=== PATIENT | male | born 1960 | race Caucasian/White ===

== ENCOUNTER → 2023-09-26 08:05 | Outpatient (REF) | payer MEDICARE, MEDICAID, SELFPAY | LOC: HWRAD 08:05 | PROVIDERS: ATTENDING PHYSICIAN Internal Medicine | DX: R68.84 Jaw pain (principal); Z92.29 Personal history of other drug therapy; M81.0 Age-related osteoporosis without current pathological fracture | CPT/HCPCS: 70486 ==

== ENCOUNTER → 2023-10-13 13:48 | Outpatient (REF) | payer MEDICARE, MEDICAID, SELFPAY ==
[2023-10-13 14:11] LABS: % Basophils 1.1 % (0-2); % Eosinophils 0.6 % (0-6); % Immature Granulocytes 0.5 % (0-0.5); % Lymphocytes 20.2 % (20.5-51.1); % Monocytes 8.7 % (1.7-9.3); % Neutrophils 68.9 % (42.2-75.2); Absolute Basophils 0.1 10^3/uL (0-0.2); Absolute Lymphocytes 1.3 10^3/uL (1.2-3.4); Absolute Monocytes 0.6 10^3/uL (0.1-0.6); Absolute Neutrophils 4.5 10^3/uL (1.4-6.5); Hematocrit 35.3 % (39.0-52.0); Hemoglobin 11.4 g/dL (13.0-18.0); Mean Corp Hgb Conc. 32.3 g/dL (33.0-37.0); Mean Corpuscular Hgb 27.8 pg (27.0-31.0); Mean Corpuscular Volume 86.1 fL (80.0-94.0); Mean Platelet Volume 9.3 fL (7.4-10.4); Nucleated Red Blood Cells % 0 % (-); Platelet Count 182 10^3/uL (130-400); Red Cell Dist. Width 14.5 % (11.5-14.5); White Blood Cell Count 6.6 10^3/uL (4.8-10.8)
== END ==
LOC: REG 13:48
PROVIDERS: ATTENDING PHYSICIAN Psychiatry & Neurology Psychiatry; FAMILY PHYSICIAN Internal Medicine
DX: Z79.899 Other long term (current) drug therapy (principal); F20.9 Schizophrenia, unspecified
CPT/HCPCS: 36415; 85025

== ENCOUNTER → 2023-11-18 15:25 | Outpatient (REF) | payer MEDICARE, MEDICAID, SELFPAY ==
[2023-11-18 16:56] LABS: % Basophils 1.3 % (0-2); % Eosinophils 1.2 % (0-6); % Immature Granulocytes 0.3 % (0-0.5); % Lymphocytes 24.5 % (20.5-51.1); % Monocytes 6.2 % (1.7-9.3); % Neutrophils 66.5 % (42.2-75.2); Absolute Basophils 0.1 10^3/uL (0-0.2); Absolute Eosinophils 0.1 10^3/uL (0-0.7); Absolute Lymphocytes 1.5 10^3/uL (1.2-3.4); Absolute Monocytes 0.4 10^3/uL (0.1-0.6); Hematocrit 37.4 % (39.0-52.0); Hemoglobin 12.1 g/dL (13.0-18.0); Mean Corp Hgb Conc. 32.4 g/dL (33.0-37.0); Mean Corpuscular Hgb 27.5 pg (27.0-31.0); Mean Platelet Volume 10.1 fL (7.4-10.4); Nucleated Red Blood Cells % 0 % (-); Platelet Count 225 10^3/uL (130-400); Red Cell Dist. Width 13.9 % (11.5-14.5)
== END ==
LOC: REG 15:25
PROVIDERS: ATTENDING PHYSICIAN Psychiatry & Neurology Psychiatry; FAMILY PHYSICIAN Internal Medicine
DX: F20.9 Schizophrenia, unspecified (principal); Z79.899 Other long term (current) drug therapy
CPT/HCPCS: 36415; 85025

== ENCOUNTER → 2023-12-15 15:30 | Outpatient (REF) | payer MEDICARE, MEDICAID, SELFPAY ==
[2023-12-15 15:53] LABS: % Basophils 1.2 % (0-2); % Eosinophils 1.3 % (0-6); % Immature Granulocytes 0.4 % (0-0.5); % Lymphocytes 25.2 % (20.5-51.1); % Monocytes 6.2 % (1.7-9.3); % Neutrophils 65.7 % (42.2-75.2); Absolute Basophils 0.1 10^3/uL (0-0.2); Absolute Eosinophils 0.1 10^3/uL (0-0.7); Absolute Lymphocytes 1.7 10^3/uL (1.2-3.4); Absolute Monocytes 0.4 10^3/uL (0.1-0.6); Absolute Neutrophils 4.5 10^3/uL (1.4-6.5); Hematocrit 37.6 % (39.0-52.0); Hemoglobin 12.5 g/dL (13.0-18.0); Mean Corp Hgb Conc. 33.2 g/dL (33.0-37.0); Mean Corpuscular Hgb 27.2 pg (27.0-31.0); Mean Corpuscular Volume 81.9 fL (80.0-94.0); Mean Platelet Volume 9.7 fL (7.4-10.4); Nucleated Red Blood Cells % 0 % (-); Platelet Count 239 10^3/uL (130-400); Red Blood Cell Count 4.59 10^6/uL (4.70-6.10); Red Cell Dist. Width 14.5 % (11.5-14.5); White Blood Cell Count 6.8 10^3/uL (4.8-10.8)
== END ==
LOC: REG 15:30
PROVIDERS: ATTENDING PHYSICIAN Psychiatry & Neurology Psychiatry; FAMILY PHYSICIAN Internal Medicine
DX: F20.9 Schizophrenia, unspecified (principal); Z79.899 Other long term (current) drug therapy
CPT/HCPCS: 36415; 85025

== ENCOUNTER → 2024-01-10 15:04 | Outpatient (REF) | payer MEDICARE, MEDICAID, SELFPAY ==
[2024-01-10 16:30] LABS: % Eosinophils 1.1 % (0-6); % Immature Granulocytes 0.3 % (0-0.5); % Lymphocytes 20.9 % (20.5-51.1); % Monocytes 6.7 % (1.7-9.3); Absolute Basophils 0.1 10^3/uL (0-0.2); Absolute Eosinophils 0.1 10^3/uL (0-0.7); Absolute Lymphocytes 1.5 10^3/uL (1.2-3.4); Absolute Monocytes 0.5 10^3/uL (0.1-0.6); Absolute Neutrophils 4.9 10^3/uL (1.4-6.5); Hematocrit 37.8 % (39.0-52.0); Hemoglobin 11.8 g/dL (13.0-18.0); Mean Corp Hgb Conc. 31.2 g/dL (33.0-37.0); Mean Corpuscular Volume 86.5 fL (80.0-94.0); Mean Platelet Volume 9.8 fL (7.4-10.4); Nucleated Red Blood Cells % 0 % (-); Platelet Count 280 10^3/uL (130-400); Red Blood Cell Count 4.37 10^6/uL (4.70-6.10); Red Cell Dist. Width 15.6 % (11.5-14.5)
== END ==
LOC: REG 15:04
PROVIDERS: ATTENDING PHYSICIAN Psychiatry & Neurology Psychiatry; FAMILY PHYSICIAN Internal Medicine
DX: F20.9 Schizophrenia, unspecified (principal); Z79.899 Other long term (current) drug therapy
CPT/HCPCS: 36415; 85025

== ENCOUNTER → 2024-02-14 06:57 | Outpatient (REF) | payer MEDICARE, MEDICAID, SELFPAY ==
[2024-02-14 07:40] LABS: % Basophils 0.9 % (0-2); % Eosinophils 1.9 % (0-6); % Immature Granulocytes 0.5 % (0-0.5); % Lymphocytes 21.7 % (20.5-51.1); Absolute Basophils 0.1 10^3/uL (0-0.2); Absolute Eosinophils 0.2 10^3/uL (0-0.7); Absolute Lymphocytes 1.7 10^3/uL (1.2-3.4); Absolute Monocytes 0.4 10^3/uL (0.1-0.6); Absolute Neutrophils 5.5 10^3/uL (1.4-6.5); Hematocrit 37.7 % (39.0-52.0); Hemoglobin 12.5 g/dL (13.0-18.0); Mean Corp Hgb Conc. 33.2 g/dL (33.0-37.0); Mean Corpuscular Volume 81.4 fL (80.0-94.0); Mean Platelet Volume 9.6 fL (7.4-10.4); Nucleated Red Blood Cells % 0 % (-); Platelet Count 206 10^3/uL (130-400); Red Blood Cell Count 4.63 10^6/uL (4.70-6.10); White Blood Cell Count 7.8 10^3/uL (4.8-10.8)
== END ==
LOC: REG 06:57
PROVIDERS: ATTENDING PHYSICIAN Psychiatry & Neurology Psychiatry; FAMILY PHYSICIAN Internal Medicine
DX: F20.5 Residual schizophrenia (principal); Z79.899 Other long term (current) drug therapy
CPT/HCPCS: 36415; 85025

== ENCOUNTER → 2024-03-01 06:38 | Outpatient (REF) | payer MEDICARE, OTHER, SELFPAY ==
[2024-03-01 07:33] LABS: % Eosinophils 2.2 % (0-6); % Immature Granulocytes 0.5 % (0-0.5); % Monocytes 5.5 % (1.7-9.3); % Neutrophils 67.8 % (42.2-75.2); Absolute Basophils 0.1 10^3/uL (0-0.2); Absolute Eosinophils 0.1 10^3/uL (0-0.7); Absolute Lymphocytes 1.4 10^3/uL (1.2-3.4); Absolute Monocytes 0.3 10^3/uL (0.1-0.6); Hematocrit 36.2 % (39.0-52.0); Mean Corp Hgb Conc. 33.1 g/dL (33.0-37.0); Mean Corpuscular Hgb 26.7 pg (27.0-31.0); Mean Corpuscular Volume 80.6 fL (80.0-94.0); Mean Platelet Volume 9.6 fL (7.4-10.4); Nucleated Red Blood Cells % 0 % (-); Platelet Count 208 10^3/uL (130-400); Red Blood Cell Count 4.49 10^6/uL (4.70-6.10); Red Cell Dist. Width 15.5 % (11.5-14.5); White Blood Cell Count 5.9 10^3/uL (4.8-10.8)
[2024-03-01 07:36] LABS: Ionized Calcium 1.12 mMOL/L (1.15-1.33)
[2024-03-01 07:54] LABS: Calcium 9.8 mg/dl (8.4-10.2); HDL Cholesterol 62 mg/dl; LDL Cholesterol, Calculated 63 mg/dl; Total Cholesterol 140 mg/dl (50-199); Triglyceride 75 mg/dl (10-149); Very Low Density Lipoprotein 15 mg/dl (0-30)
[2024-03-01 08:17] LABS: Vitamin D, 25-OH*** 88.5 ng/mL (30-80)
== END ==
LOC: REG 06:38
PROVIDERS: ATTENDING PHYSICIAN Psychiatry & Neurology Psychiatry; FAMILY PHYSICIAN Internal Medicine
DX: E78.5 Hyperlipidemia, unspecified (principal); E21.3 Hyperparathyroidism, unspecified; F20.9 Schizophrenia, unspecified; Z79.899 Other long term (current) drug therapy; E55.9 Vitamin D deficiency, unspecified
CPT/HCPCS: 36415; 80061; 82306; 82330; 83970; 85025

== ENCOUNTER 2024-04-02 07:17 | Emergency (ER) | payer MEDICARE, OTHER, SELFPAY ==
[2024-04-02 07:18] VITALS: BP 109/69
[2024-04-02 07:44] VITALS: BMI 21.0
[2024-04-02 07:51] VITALS: BP 133/77
[2024-04-02 08:00] VITALS: BP 134/76
[2024-04-02 08:59] LABS: COVID-19 Antigen Negative (Negative)
--- NOTE | 2024-04-02 09:03 | ED.GENMED ---
History of Present Illness
<Enedelia Cardoza MD, Resident - Last Filed: 04/02/24 12:54>
General
Chief Complaint: Change in Mental Status
Source: family (Carlita, sister/primary caregiver)
Exam Limitations: developmental stage
Time Seen by Provider: 04/02/24 07:40
History of Present Illness
History of Present Illness:
63 y old male with hx of cognitive delay, CAD, CHF, HTN, GERD, prostatic hypertrophy, questionable CVA, who presented to the ED with his sister for complaints of generalized weakness and impaired balance x 2 days. Pt is unable to give history and
has difficulty detailing his needs, therefore history is mostly provided by his sister. He had a panic attack while out at the park with his sister on Tuesday, and collapsed to his knees with no head trauma or LOC. Sister administered sublingual
nitroglycerin as she was uncertain about the cause of his symptoms. Sister notes that he has been at his baseline mental status, but noted some impaired balance with his ambulation, 'he has been wobbly'. At home vitals today showed SpO2 86%,
prompting their visit to the ED. He has had similar presentation in the past with UTIs.
Sister notes mildly reduced appetite over the past week. No new chest pain in background of constant acid reflux symptoms, no palpitation, cough, SOB, fever/chills/sweats, N/V, diarrhea, or dysuria, frequency or acute retention.
Past History
<Enedelia Cardoza MD, Resident - Last Filed: 04/02/24 12:54>
Past History
ED Past Medical History: CAD, HTN, [place], Psychiatric (schizoaffective disorder, mental delays) and Other (Constipation, loss of urination control, anemia, impaired vision,); Negative Asthma, Hypercholesterolemia or NIDDM
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
Social History
Tobacco: Non-smoker
Alcohol: None
Drug: None
Personal: Single
Living: with family
Employment: Disabled
Family History
Family History: Other (Noncontributory)
Review of Systems
<Enedelia Cardoza MD, Resident - Last Filed: 04/02/24 12:54>
Review of Systems
Allergies reviewed?: Yes
Unable to obtain full review of systems at this time due to: other (developmental delay)
Other source history: family
Constitutional: Denies fever, night sweats or chills
Respiratory: Denies cough or trouble breathing
Cardiac: Denies chest pain, diaphoresis, palpitations or syncope
ABD/GI: Reports no symptoms
: Denies dysuria, flank pain or difficulty voiding
Musculoskeletal: Reports joint pain (lower back pain)
Neurological: Denies dizzy or headache
Phy Exam
<Enedelia Cardoza MD, Resident - Last Filed: 04/02/24 12:54>
General Physical Exam
General Presentation: no apparent distress
General Skin: warm and dry
General Habitus: normal
General Mental: alert and usual mental status
General Hydration: appears well hydrated
Eye Exam
Eye Exam: PERRL and EOMI
Pulmonary Exam
Pulmonary Exam: lungs clear, no respiratory distress, no rales, no crackles, no rhonchi and no wheezing
Gastrointestinal Exam
Gastrointestinal Exam: normal bowel sounds, soft, no organomegaly, non distended, no cva tenderness and other (mild generalized tenderness)
Neurological Exam
Neurological Exam: alert
Course
<Enedelia Cardoza MD, Resident - Last Filed: 04/02/24 12:54>
Orders/Labs/Results
Orders:
Orders
04/02/24 07:36
EKG [Electrocardiogram (*1)] Urgent
Reason for Study: Shortness of Breath
EKG- Treatment ONCE
04/02/24 08:02
COVID-19 Antigen Urgent
Source: Nasal Swab
04/02/24 08:58
0.9% Sodium Chloride 500 ml [Nss] 500 ml IV BOLUS
04/02/24 09:10
UA Reflex to Culture [Urinalysis Reflex To Culture] Urgent
Date Specimen was Collected: 04/02/24
Time Specimen was Collected: 08:50
04/02/24 09:23
CT Head W/o Iv Contrast Urgent
Comment:
Reason For Exam: mental status change
04/02/24 09:25
Complete Blood Count/With Diff Urgent
Comprehensive Metabolic Panel Urgent
04/02/24 09:33
Arterial Blood Gas Urgent
%Oxygen/Room Air: 86
04/02/24 10:37
D-Dimer Urgent
Abnormal Lab Results
04/02/24 04/02/24 04/02/24
: 09:33 10:37
RBC 4.38 L 10^6/uL
(4.70-6.10)
Hgb 12.1 L g/dL
(13.0-18.0)
Hct 37.2 L %
(39.0-52.0)
MCHC 32.5 L g/dL
(33.0-37.0)
RDW 15.7 H %
(11.5-14.5)
Abs Immat Gran (auto) 0.1 H 10^3/uL
(0-0.05)
Absolute Neuts (auto) 9.0 H 10^3/uL
(1.4-6.5)
Absolute Lymphs (auto) 0.7 L 10^3/uL
(1.2-3.4)
Neutrophils % 89.3 H %
(42.2-75.2)
Lymphocytes % 7.2 L %
(20.5-51.1)
D-Dimer 0.83 H ug/mlFEU
(0.00-0.50)
pO2 69 L mmHg
(83-108)
Glucose 134 H mg/dl
(70-99)
Total Bilirubin 2.3 H mg/dl
(0.2-1.3)
04/02/24 09:25
04/02/24 09:25
Vital Signs
Initial and Last Documented VS:
Initial Vital Signs
Pulse Resp BP Pulse Ox
93 20 109/69 93
04/02/24 07:18 04/02/24 07:18 04/02/24 07:18 04/02/24 07:18
Last Documented Vital Signs
Pulse Resp BP Pulse Ox
95 16 156/80 98
04/02/24 12:30 04/02/24 08:15 04/02/24 12:00 04/02/24 12:30
<Giuseppe Steele MD - Last Filed: 04/02/24 15:39>
Orders/Labs/Results
Orders:
Orders
04/02/24 07:36
EKG [Electrocardiogram (*1)] Urgent
Reason for Study: Shortness of Breath
EKG- Treatment ONCE
04/02/24 08:02
COVID-19 Antigen Urgent
Source: Nasal Swab
04/02/24 08:58
0.9% Sodium Chloride 500 ml [Nss] 500 ml IV BOLUS
04/02/24 09:10
UA Reflex to Culture [Urinalysis Reflex To Culture] Urgent
Date Specimen was Collected: 04/02/24
Time Specimen was Collected: 08:50
04/02/24 09:23
CT Head W/o Iv Contrast Urgent
Comment:
Reason For Exam: mental status change
04/02/24 09:25
Complete Blood Count/With Diff Urgent
Comprehensive Metabolic Panel Urgent
04/02/24 09:33
Arterial Blood Gas Urgent
%Oxygen/Room Air: 86
04/02/24 10:37
D-Dimer Urgent
Abnormal Lab Results
04/02/24 04/02/24 04/02/24
: 09:33 10:37
RBC 4.38 L 10^6/uL
(4.70-6.10)
Hgb 12.1 L g/dL
(13.0-18.0)
Hct 37.2 L %
(39.0-52.0)
MCHC 32.5 L g/dL
(33.0-37.0)
RDW 15.7 H %
(11.5-14.5)
Abs Immat Gran (auto) 0.1 H 10^3/uL
(0-0.05)
Absolute Neuts (auto) 9.0 H 10^3/uL
(1.4-6.5)
Absolute Lymphs (auto) 0.7 L 10^3/uL
(1.2-3.4)
Neutrophils % 89.3 H %
(42.2-75.2)
Lymphocytes % 7.2 L %
(20.5-51.1)
D-Dimer 0.83 H ug/mlFEU
(0.00-0.50)
pO2 69 L mmHg
(83-108)
Glucose 134 H mg/dl
(70-99)
Total Bilirubin 2.3 H mg/dl
(0.2-1.3)
04/02/24 09:25
04/02/24 09:25
Vital Signs
Initial and Last Documented VS:
Initial Vital Signs
Pulse Resp BP Pulse Ox
93 20 109/69 93
04/02/24 07:18 04/02/24 07:18 04/02/24 07:18 04/02/24 07:18
Last Documented Vital Signs
Pulse Resp BP Pulse Ox
95 16 156/80 98
04/02/24 12:30 04/02/24 08:15 04/02/24 12:00 04/02/24 12:30
<Enedelia Cardoza MD, Resident - Last Filed: 04/02/24 12:54>
MDM/Problems Addressed
Differential Diagnosis Includes:
UTI, metabolic encephalopathy, dehydration
<Enedelia Cardoza MD, Resident - Last Filed: 04/02/24 12:54>
*Critical Care Note
Total Time (30-74mins, 75-104mins- exclusive of procedures): Not Applicable
<Enedelia Cardoza MD, Resident - Last Filed: 04/02/24 12:54>
Update Note
Update Note:
Discussed with patient and sister: Labs, blood gas, urinalysis and head CT were normal and patient appears stable at this time. Sister is comfortable with taking the patient home and will observe for worsening symptom or acute changes. Prompt follow
up with PCP is already set up for within the next week. We will discharge to home at this time.
ED Attending Note
<Enedelia Cardoza MD, Resident - Last Filed: 04/02/24 12:54>
-
Portions of this chart may have been created with voice recognition software.� Occasional wrong word or��sound alike� substitutions may have occurred due to the inherent limitations of voice recognition software.
<Giuseppe Steele MD - Last Filed: 04/02/24 15:39>
ED Attending Note
Patient seen and examined by attending physician: Yes
ED Attending Note:
Patient with history of cognitive delay, CAD, congestive heart failure, and schizoaffective disorder, who lives at home with his sister, presents ED secondary to 3-day history of decreased activity, generalized weakness, decreased oral intake,
difficulty with balance, as well as decreased pulse ox noted at home (86%) this morning. Per sister, pulse ox was checked this morning, as patient slept longer than usual along with recent depressed mental status. Denies color changes in his skin.
Denies coughing. Denies vomiting. Denies fever. Denies exposure to anyone with recent illness. Denies recent travel. Denies recent change in medications or diet. However, patient has had similar mental status change associated with an
infection, i.e. UTI.
Physical Exam
General: no apparent distress, not acutely ill. afebrile
Head: nc/at. eomi
Neck: supple. no meningeal signs.
Heart: s1/s2 regular rate and rhythm, no murmur. equal radial pulses.
Lungs: no acute respiratory distress. clear bilaterally
Abdomen: normal bowel sounds. not tender.
Neuro: alert and awake. no focal neurological deficits
Skin: no rash
Psychiatric: well kept.
Extremities: no edema.
Patient with an unremarkable workup in ED, including CT head, blood work, urinalysis, and ABG. Patient's sister confirms that patient currently is at his baseline mental status, and feels comfortable taking him home at this time. Will follow-up
with PCP for reevaluation, or return to ED with worsening symptoms. I believe that this is a reasonable treatment plan at this time.
Discharge Plan
Departure
Patient Disposition: Home (Routine Discharge)
Date of Disposition: 04/02/24
Time of Disposition: 12:43
Patient with high blood pressure during this ER visit?: Yes
Discharge Problem:
Generalized weakness, Change in mental status
Instructions: Altered Mental Status (DC), BLOOD PRESSURE
Prescriptions:
No Action
nitroglycerin 0.4 MG tablet, sublingual
0.4 mg sublingual [id number] PRN (Reason: chest pain) Qty: 25 0RF
bisacodyl 5 MG tablet,delayed release (DR/EC)
5 mg PO DAILYPRN PRN (Reason: constipation)
clozapine 25 MG tablet
50 mg PO DAILY
Patient Comments:
04/02/2024: take with 100mg to equal 150mg in the morning.
finasteride 5 MG tablet
5 mg PO HS
clozapine 100 MG tablet
200 mg PO HS
clozapine 100 MG tablet
100 mg PO DAILY
Patient Comments:
04/02/2024: take with 50mg to equal 150mg in the morning.
aspirin 81 mg Tablet,Delayed Release (Dr/Ec)
81 mg PO DAILY
calcium carbonate 600 mg calcium (1,500 mg) Tablet
600 mg PO TID
methenamine hippurate 1 gram Tablet
1 g PO BID
cholecalciferol (vitamin D3) 25 mcg (1,000 unit) Tablet
25 mcg PO Q48H
omeprazole 40 mg Capsule,Delayed Release(Dr/Ec)
40 mg PO BID
sennosides [senna] 8.6 mg Tablet
8.6 mg PO DAILYPRN PRN (Reason: constipation)
phenazopyridine 200 mg Tablet
200 mg PO DAILYPRN PRN (Reason: urinary tract pain)
famotidine 40 mg Tablet
40 mg PO HS
lorazepam 0.5 mg Tablet
0.5 mg PO DAILYPRN PRN (Reason: anxiety)
Patient Comments:
04/02/2024: last filled 11/08/22, 30 tabs for 30 days from [facility]
polyethylene glycol 3350 [Miralax] 17 gram/dose Powder
20 - 30 g PO BID
lactulose [Enulose] 10 gram/15 mL Solution
10 g PO DAILYPRN PRN (Reason: constipation)
acetaminophen [Tylenol] 325 mg Tablet
650 mg PO Q4HPRN PRN (Reason: mild pain)
atorvastatin 40 mg tablet
40 mg PO HS
Referrals:
Haritha Ellis MD [Family Provider] -
Activity Restrictions/Additional Instructions:
Please follow up with PCP shortly.
Interventions
Interventions:
*Risk Screen - Suicide Last Done: 04/02/24 07:44
*General Assessment Last Done: 04/02/24 07:44
*Neglect/Abuse Screening Last Done: 04/02/24 07:44
ED- Fall Risk Assessment Last Done: 04/02/24 07:44
*ED COVID-19 Vaccine History Last Done: 04/02/24 07:44
*Nursing Disposition Last Done: 04/02/24 13:12
ED- Pulmonary Assessment Last Done: 04/02/24 07:44
ED-Psychological Assessment Last Done: 04/02/24 13:12
ED- Neurological Assessment Last Done: 04/02/24 07:44
ED- Cardiac Assessment Last Done: 04/02/24 07:44
ED Swallowing Screen Last Done: 04/02/24 07:44
Discharge Date and Time
Discharge Date/Time: 04/02/24 13:13
Print Language: INDONESIAN
[2024-04-02 09:19] LABS: Urine Albumin Negative (Neg - Trace); Urine Bilirubin Negative (Negative); Urine Character Clear (Clear); Urine Color Yellow; Urine Glucose Negative (Negative); Urine Ketone Negative (Negative); Urine Leukocyte Negative (Negative); Urine Nitrite Negative (Negative); Urine Occult Blood Negative (Negative); Urine Urobilinogen Negative (Neg - 1+); Urine pH 6.5 (5.0-9.0)
[2024-04-02] MEDS: NSS 500 IV (09:37)
[2024-04-02 09:42] VITALS: BP 150/83
[2024-04-02 09:46] LABS: % Basophils 0.4 % (0-2); % Eosinophils 0.3 % (0-6); % Immature Granulocytes 0.5 % (0-0.5); % Lymphocytes 7.2 % (20.5-51.1); % Monocytes 2.3 % (1.7-9.3); % Neutrophils 89.3 % (42.2-75.2); Absolute Immature Granulocytes 0.1 10^3/uL (0-0.05); Absolute Lymphocytes 0.7 10^3/uL (1.2-3.4); Absolute Monocytes 0.2 10^3/uL (0.1-0.6); Hematocrit 37.2 % (39.0-52.0); Hemoglobin 12.1 g/dL (13.0-18.0); Mean Corp Hgb Conc. 32.5 g/dL (33.0-37.0); Mean Corpuscular Hgb 27.6 pg (27.0-31.0); Mean Corpuscular Volume 84.9 fL (80.0-94.0); Mean Platelet Volume 9.7 fL (7.4-10.4); Nucleated Red Blood Cells % 0 % (-); Platelet Count 211 10^3/uL (130-400); Red Blood Cell Count 4.38 10^6/uL (4.70-6.10); Red Cell Dist. Width 15.7 % (11.5-14.5)
[2024-04-02 09:50] LABS: B.E. 2.8 mmol/L; HCO3 27.2 mmol/L (21-28); O2 Saturation % 95.6 % (94-98); PCO2 40 mmHg (35-48); PO2 69 mmHg (83-108); pH 7.44 (7.35-7.45)
[2024-04-02 09:54] LABS: O2 Therapy ROOM AIR
[2024-04-02 09:55] LABS: ALT (SGPT) 18 U/L (0-50); AST (SGOT) 25 U/L (17-59); Albumin 4.8 g/dl (3.5-5.0); Alkaline Phosphatase 115 U/L (38-126); Blood Urea Nitrogen 20 mg/dl (9-20); Calcium 9.7 mg/dl (8.4-10.2); Carbon Dioxide 30 mmol/L (22-30); Chloride 103 mmol/L (98-107); Estimated Creatinine Clearance 72 ml/min; Glucose 134 mg/dl (70-99); Potassium 4.1 mmol/L (3.5-5.1); Sodium 145 mmol/L (135-145); Total Bilirubin 2.3 mg/dl (0.2-1.3); Total Protein 7.1 g/dl (6.3-8.2); eGFR > 60.00
[2024-04-02 11:00] VITALS: BP 132/74
[2024-04-02 11:17] LABS: D-Dimer 0.83 ug/mlFEU (0.00-0.50)
[2024-04-02 12:00] VITALS: BP 156/80
== END 2024-04-02 13:13 | disposition home or self-care (01) ==
LOC: EMR 07:17
PROVIDERS: Emergency Medicine; Student in an Organized Health Care Education/Training Program; EMERGENCY PHYSICIAN Emergency Medicine; FAMILY PHYSICIAN Internal Medicine
DX: R41.82 Altered mental status, unspecified (principal); R53.1 Weakness; R26.81 Unsteadiness on feet; Z11.52 Encounter for screening for COVID-19; R06.02 Shortness of breath; M54.50 Low back pain, unspecified; I25.10 Atherosclerotic heart disease of native coronary artery without angina pectoris; I11.0 Hypertensive heart disease with heart failure; I50.9 Heart failure, unspecified; F25.9 Schizoaffective disorder, unspecified; D64.9 Anemia, unspecified; N40.0 Benign prostatic hyperplasia without lower urinary tract symptoms; K21.9 Gastro-esophageal reflux disease without esophagitis; F41.0 Panic disorder [episodic paroxysmal anxiety]; I25.2 Old myocardial infarction; Z95.5 Presence of coronary angioplasty implant and graft; Z96.641 Presence of right artificial hip joint; Z87.440 Personal history of urinary (tract) infections; Z79.82 Long term (current) use of aspirin; Z88.2 Allergy status to sulfonamides; Z88.8 Allergy status to other drugs, medicaments and biological substances
CPT/HCPCS: 99284; 70450; 80053; 81003; 82805; 85025; 85379; 87811; 93005

== ENCOUNTER → 2024-04-12 12:00 | Outpatient (REF) | payer MEDICARE, OTHER, SELFPAY | LOC: DHSLP 12:00 | PROVIDERS: ATTENDING PHYSICIAN Internal Medicine | DX: G47.33 Obstructive sleep apnea (adult) (pediatric) (principal) | CPT/HCPCS: 95800 ==

== ENCOUNTER → 2024-04-16 15:53 | Outpatient (REF) | payer MEDICARE, OTHER, SELFPAY ==
[2024-04-16 16:41] LABS: % Basophils 1.2 % (0-2); % Eosinophils 1.8 % (0-6); % Immature Granulocytes 0.3 % (0-0.5); % Lymphocytes 21.8 % (20.5-51.1); % Monocytes 5.8 % (1.7-9.3); % Neutrophils 69.1 % (42.2-75.2); Absolute Basophils 0.1 10^3/uL (0-0.2); Absolute Eosinophils 0.1 10^3/uL (0-0.7); Absolute Lymphocytes 1.5 10^3/uL (1.2-3.4); Absolute Monocytes 0.4 10^3/uL (0.1-0.6); Absolute Neutrophils 4.7 10^3/uL (1.4-6.5); Hematocrit 37.1 % (39.0-52.0); Hemoglobin 11.9 g/dL (13.0-18.0); Mean Corp Hgb Conc. 32.1 g/dL (33.0-37.0); Mean Corpuscular Hgb 26.6 pg (27.0-31.0); Mean Platelet Volume 9.4 fL (7.4-10.4); Nucleated Red Blood Cells % 0 % (-); Platelet Count 222 10^3/uL (130-400); Red Blood Cell Count 4.47 10^6/uL (4.70-6.10); White Blood Cell Count 6.8 10^3/uL (4.8-10.8)
== END ==
LOC: REG 15:53
PROVIDERS: ATTENDING PHYSICIAN Psychiatry & Neurology Psychiatry; FAMILY PHYSICIAN Internal Medicine
DX: F20.9 Schizophrenia, unspecified (principal); Z79.899 Other long term (current) drug therapy
CPT/HCPCS: 36415; 85025

== ENCOUNTER → 2024-05-22 07:18 | Outpatient (REF) | payer MEDICARE, MEDICAID, SELFPAY ==
[2024-05-22 08:30] LABS: % Basophils 0.7 % (0-2); % Eosinophils 2.7 % (0-6); % Immature Granulocytes 0.4 % (0-0.5); % Lymphocytes 17.5 % (20.5-51.1); % Monocytes 5.1 % (1.7-9.3); % Neutrophils 73.6 % (42.2-75.2); Absolute Eosinophils 0.2 10^3/uL (0-0.7); Absolute Monocytes 0.3 10^3/uL (0.1-0.6); Absolute Neutrophils 4.2 10^3/uL (1.4-6.5); Hematocrit 37.3 % (39.0-52.0); Hemoglobin 12.2 g/dL (13.0-18.0); Mean Corp Hgb Conc. 32.7 g/dL (33.0-37.0); Mean Corpuscular Hgb 26.8 pg (27.0-31.0); Mean Corpuscular Volume 81.8 fL (80.0-94.0); Mean Platelet Volume 9.7 fL (7.4-10.4); Nucleated Red Blood Cells % 0 % (-); Platelet Count 206 10^3/uL (130-400); Red Blood Cell Count 4.56 10^6/uL (4.70-6.10); Red Cell Dist. Width 15.1 % (11.5-14.5); White Blood Cell Count 5.7 10^3/uL (4.8-10.8)
== END ==
LOC: REG 07:18
PROVIDERS: ATTENDING PHYSICIAN Psychiatry & Neurology Psychiatry; FAMILY PHYSICIAN Internal Medicine
DX: F20.9 Schizophrenia, unspecified (principal); Z79.899 Other long term (current) drug therapy
CPT/HCPCS: 36415; 85025

== ENCOUNTER → 2024-06-21 07:25 | Outpatient (REF) | payer MEDICARE, MEDICAID, SELFPAY ==
[2024-06-21 08:06] LABS: % Basophils 1.2 % (0-2); % Eosinophils 2.1 % (0-6); % Immature Granulocytes 0.3 % (0-0.5); % Lymphocytes 20.4 % (20.5-51.1); % Monocytes 5.2 % (1.7-9.3); % Neutrophils 70.8 % (42.2-75.2); Absolute Basophils 0.1 10^3/uL (0-0.2); Absolute Eosinophils 0.1 10^3/uL (0-0.7); Absolute Lymphocytes 1.2 10^3/uL (1.2-3.4); Absolute Monocytes 0.3 10^3/uL (0.1-0.6); Absolute Neutrophils 4.1 10^3/uL (1.4-6.5); Hematocrit 38.2 % (39.0-52.0); Hemoglobin 12.3 g/dL (13.0-18.0); Mean Corp Hgb Conc. 32.2 g/dL (33.0-37.0); Mean Corpuscular Hgb 27.1 pg (27.0-31.0); Mean Corpuscular Volume 84.1 fL (80.0-94.0); Mean Platelet Volume 9.7 fL (7.4-10.4); Nucleated Red Blood Cells % 0 % (-); Platelet Count 191 10^3/uL (130-400); Red Blood Cell Count 4.54 10^6/uL (4.70-6.10); Red Cell Dist. Width 14.6 % (11.5-14.5); White Blood Cell Count 5.8 10^3/uL (4.8-10.8)
== END ==
LOC: REG 07:25
PROVIDERS: ATTENDING PHYSICIAN Psychiatry & Neurology Psychiatry
DX: Z79.899 Other long term (current) drug therapy (principal); F20.9 Schizophrenia, unspecified
CPT/HCPCS: 36415; 85025

== ENCOUNTER → 2024-08-08 06:35 | Outpatient (REF) | payer MEDICARE, MEDICAID, SELFPAY ==
[2024-08-08 07:19] LABS: % Eosinophils 2.2 % (0-6); % Immature Granulocytes 0.4 % (0-0.5); % Lymphocytes 25.2 % (20.5-51.1); % Monocytes 5.1 % (1.7-9.3); % Neutrophils 66.1 % (42.2-75.2); Absolute Basophils 0.1 10^3/uL (0-0.2); Absolute Eosinophils 0.2 10^3/uL (0-0.7); Absolute Lymphocytes 1.7 10^3/uL (1.2-3.4); Absolute Monocytes 0.4 10^3/uL (0.1-0.6); Absolute Neutrophils 4.6 10^3/uL (1.4-6.5); Hematocrit 38.9 % (39.0-52.0); Hemoglobin 12.5 g/dL (13.0-18.0); Mean Corp Hgb Conc. 32.1 g/dL (33.0-37.0); Mean Corpuscular Hgb 27.3 pg (27.0-31.0); Mean Corpuscular Volume 84.9 fL (80.0-94.0); Mean Platelet Volume 9.8 fL (7.4-10.4); Nucleated Red Blood Cells % 0 % (-); Platelet Count 205 10^3/uL (130-400); Red Blood Cell Count 4.58 10^6/uL (4.70-6.10); Red Cell Dist. Width 14.8 % (11.5-14.5); White Blood Cell Count 6.9 10^3/uL (4.8-10.8)
== END ==
LOC: REG 06:35
PROVIDERS: ATTENDING PHYSICIAN Psychiatry & Neurology Psychiatry; FAMILY PHYSICIAN Internal Medicine
DX: F20.9 Schizophrenia, unspecified (principal); Z79.899 Other long term (current) drug therapy
CPT/HCPCS: 36415; 85025

== ENCOUNTER → 2024-09-04 15:24 | Outpatient (REF) | payer MEDICARE, MEDICAID, SELFPAY ==
[2024-09-04 15:55] LABS: % Basophils 0.7 % (0-2); % Immature Granulocytes 0.6 % (0-0.5); % Lymphocytes 19.8 % (20.5-51.1); % Monocytes 7.3 % (1.7-9.3); % Neutrophils 70.6 % (42.2-75.2); Absolute Basophils 0.1 10^3/uL (0-0.2); Absolute Eosinophils 0.1 10^3/uL (0-0.7); Absolute Immature Granulocytes 0.1 10^3/uL (0-0.05); Absolute Lymphocytes 1.6 10^3/uL (1.2-3.4); Absolute Monocytes 0.6 10^3/uL (0.1-0.6); Absolute Neutrophils 5.7 10^3/uL (1.4-6.5); Hematocrit 39.1 % (39.0-52.0); Hemoglobin 12.6 g/dL (13.0-18.0); Mean Corp Hgb Conc. 32.2 g/dL (33.0-37.0); Mean Corpuscular Hgb 27.5 pg (27.0-31.0); Mean Corpuscular Volume 85.4 fL (80.0-94.0); Mean Platelet Volume 10.1 fL (7.4-10.4); Nucleated Red Blood Cells % 0 % (-); Platelet Count 208 10^3/uL (130-400); Red Blood Cell Count 4.58 10^6/uL (4.70-6.10); Red Cell Dist. Width 15.1 % (11.5-14.5); White Blood Cell Count 8.1 10^3/uL (4.8-10.8)
== END ==
LOC: REG 15:24
PROVIDERS: ATTENDING PHYSICIAN Psychiatry & Neurology Psychiatry
DX: F20.9 Schizophrenia, unspecified (principal); Z79.899 Other long term (current) drug therapy
CPT/HCPCS: 36415; 85025

== ENCOUNTER 2024-09-24 17:43 | Emergency (ER) | payer MEDICARE, MEDICAID, SELFPAY ==
[2024-09-24 17:56] VITALS: BP 156/74
[2024-09-24 18:00] VITALS: BP 156/74
[2024-09-24 18:26] VITALS: BMI 22.4
[2024-09-24] MEDS: TYLENOL 650 MG PO (18:28)
[2024-09-24 18:29] LABS: % Basophils 0.6 % (0-2); % Eosinophils 0.1 % (0-6); % Immature Granulocytes 0.4 % (0-0.5); % Lymphocytes 3.8 % (20.5-51.1); % Monocytes 3.2 % (1.7-9.3); % Neutrophils 91.9 % (42.2-75.2); Absolute Basophils 0.1 10^3/uL (0-0.2); Absolute Lymphocytes 0.3 10^3/uL (1.2-3.4); Absolute Monocytes 0.3 10^3/uL (0.1-0.6); Absolute Neutrophils 8.2 10^3/uL (1.4-6.5); Hematocrit 37.4 % (39.0-52.0); Hemoglobin 11.9 g/dL (13.0-18.0); Mean Corp Hgb Conc. 31.8 g/dL (33.0-37.0); Mean Corpuscular Hgb 27.4 pg (27.0-31.0); Mean Corpuscular Volume 86.2 fL (80.0-94.0); Mean Platelet Volume 9.3 fL (7.4-10.4); Nucleated Red Blood Cells % 0 % (-); Platelet Count 168 10^3/uL (130-400); Red Blood Cell Count 4.34 10^6/uL (4.70-6.10); White Blood Cell Count 8.9 10^3/uL (4.8-10.8)
--- NOTE | 2024-09-24 18:29 | ED.GENMED ---
History of Present Illness
General
Chief Complaint: Change in Mental Status
Source: patient
Exam Limitations: none
Time Seen by Provider: 09/24/24 18:05
History of Present Illness
History of Present Illness:
64-year-old male with history of cognitive delay presents with his sister who is his caregiver and he lives with who states that patient has been off of his baseline confused not himself. She states he often gets like this when he becomes sick.
He has a history of metabolic encephalopathy. Patient is a poor historian and cannot provide any valuable history. The sister did note a slight cough over the past several days
Past History
Past History
ED Past Medical History: CAD, HTN, [place], Psychiatric (schizoaffective disorder, mental delays) and Other (Constipation, loss of urination control, anemia, impaired vision,); Negative Asthma, Hypercholesterolemia or NIDDM
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
Social History
Tobacco: Non-smoker
Alcohol: None
Drug: None
Personal: Single
Living: with family
Employment: Disabled
Family History
Family History: Other (Noncontributory)
Phy Exam
Physical Exam
Physical Exam:
General: Well-developed male no acute respiratory distress
HEENT: Normocephalic atraumatic
Heart: Tachycardic but regular
Lungs: Clear no obvious wheeze
Extremities: No cyanosis or edema
Skin warm no rash
Course
Orders/Labs/Results
Orders:
Orders
09/24/24 18:05
EKG [Electrocardiogram (*1)] Urgent
Reason for Study: Fatigue / Weakness
EKG- Treatment ONCE
09/24/24 18:13
Cardiac Monitoring- Treatment ONCE
IV Insert/Care/Rem.- Treatment PRN
Straight cath- Treatment ONCE
Pulse Ox/cont/shift [RESP] Urgent
Quantity: 1
Special Instructions: CONTINUOUS
09/24/24 18:16
Complete Blood Count/With Diff Urgent
Comprehensive Metabolic Panel Urgent
Lactic Acid Q4H
Comment: ON ICE, CANCEL 2ND ORDER IF FIRST LACTIC ACID LEVEL <2
Blood Culture Urgent
[facility] Source: Blood/Venous
Specimen Description:
09/24/24 18:18
COVID-19 Antigen Urgent
Source: Nasal Swab
INF RAPID [Influenza A+B Rapid Molecular] Urgent
[facility] Source: Nasal Swab
Specimen Description:
09/24/24 18:23
0.9% Sodium Chloride 1000 ml [Nss] 1,000 ml IV BOLUS
Acetaminophen [Tylenol] 650 mg PO NOW STA
09/24/24 18:24
CR Chest - 2 Views Urgent
Comment:
Reason For Exam: fever
09/24/24 18:25
Acetaminophen [Tylenol] 650 mg .ROUTE .STK-MED ONE
09/24/24 18:56
Urinalysis Reflex To Culture Urgent
Date Specimen was Collected: 09/24/24
Time Specimen was Collected: 18:13
Urine Microscopic Reflex Cult Urgent
09/24/24 19:38
Mag Hydrox/Al Hydrox/Simeth [Maalox] 30 ml PO NOW STA
09/24/24 19:59
Troponin I Urgent
09/24/24 22:15
Lactic Acid Q4H
Comment: ON ICE, CANCEL 2ND ORDER IF FIRST LACTIC ACID LEVEL <2
Abnormal Lab Results
09/24/24 09/24/24
18:16 18:56
RBC 4.34 L 10^6/uL
(4.70-6.10)
Hgb 11.9 L g/dL
(13.0-18.0)
Hct 37.4 L %
(39.0-52.0)
MCHC 31.8 L g/dL
(33.0-37.0)
RDW 15.0 H %
(11.5-14.5)
Absolute Neuts (auto) 8.2 H 10^3/uL
(1.4-6.5)
Absolute Lymphs (auto) 0.3 L 10^3/uL
(1.2-3.4)
Neutrophils % 91.9 H %
(42.2-75.2)
Lymphocytes % 3.8 L %
(20.5-51.1)
Glucose 141 H mg/dl
(70-99)
Total Bilirubin 1.5 H mg/dl
(0.2-1.3)
Ur Occult Blood Reflex 1+ A
(Negative)
Urine RBC 7-10 A /HPF
(0-2)
Urine Bacteria (Reflex) Few A
(Negative)
Urine Albumin (Reflex) 2+ A
(Neg - Trace)
09/24/24 18:16
09/24/24 18:16
Vital Signs
Initial and Last Documented VS:
Initial Vital Signs
Temp Pulse Resp BP Pulse Ox
103 F H 108 20 156/74 98
09/24/24 17:56 09/24/24 17:56 09/24/24 17:56 09/24/24 17:56 09/24/24 17:56
Last Documented Vital Signs
Temp Pulse Resp BP Pulse Ox
100.0 F 90 24 109/49 97
09/24/24 20:24 09/24/24 20:30 09/24/24 20:30 09/24/24 20:19 09/24/24 20:30
MDM/Problems Addressed
Differential Diagnosis Includes:
Patient confused at home noted to have a 103 fever here. Suspect potential metabolic encephalopathy question possible viral illness such as COVID or flu versus pneumonia versus UTI. Check labs urinalysis chest x-ray COVID and flu testing. Fluids
and Tylenol ordered
*Critical Care Note
Total Time (30-74mins, 75-104mins- exclusive of procedures): Not Applicable
Update Note
Update Note:
Encephalopathy was related to his fever. His fever is improved his cognitive function has improved. Reassessed. Sister states he is actually much better after treatment of fluids fever control. He tested positive for influenza. Chest x-ray was
clear. Long discussion had with sister regarding treatment options including admission versus treating at home. Shared decision making occurred. She wishes to go home with her brother and take care of him there. Discussed the option for Tamiflu
however she declined as well. I think all of these choices were reasonable. Recommended supportive care return precautions given. Stable for discharge
ED Attending Note
-
Portions of this chart may have been created with voice recognition software.� Occasional wrong word or��sound alike� substitutions may have occurred due to the inherent limitations of voice recognition software.
Discharge Plan
Departure
Patient Disposition: Home (Routine Discharge)
Date of Disposition: 09/24/24
Time of Disposition: 21:12
Patient with high blood pressure during this ER visit?: No
Discharge Problem:
Influenza A
Instructions: Flu in adults - Discharge instructions
Prescriptions:
No Action
nitroglycerin 0.4 MG tablet, sublingual
0.4 mg sublingual [id number] PRN (Reason: chest pain) Qty: 25 0RF
bisacodyl 5 MG tablet,delayed release (DR/EC)
5 mg PO DAILYPRN PRN (Reason: constipation)
clozapine 25 MG tablet
50 mg PO DAILY
Patient Comments:
04/02/2024: take with 100mg to equal 150mg in the morning.
finasteride 5 MG tablet
5 mg PO HS
clozapine 100 MG tablet
200 mg PO HS
clozapine 100 MG tablet
100 mg PO DAILY
Patient Comments:
04/02/2024: take with 50mg to equal 150mg in the morning.
aspirin 81 mg Tablet,Delayed Release (Dr/Ec)
81 mg PO DAILY
calcium carbonate 600 mg calcium (1,500 mg) Tablet
600 mg PO TID
methenamine hippurate 1 gram Tablet
1 g PO BID
cholecalciferol (vitamin D3) 25 mcg (1,000 unit) Tablet
25 mcg PO Q48H
omeprazole 40 mg Capsule,Delayed Release(Dr/Ec)
40 mg PO BID
sennosides [senna] 8.6 mg Tablet
8.6 mg PO DAILYPRN PRN (Reason: constipation)
phenazopyridine 200 mg Tablet
200 mg PO DAILYPRN PRN (Reason: urinary tract pain)
famotidine 40 mg Tablet
40 mg PO HS
lorazepam 0.5 mg Tablet
0.5 mg PO DAILYPRN PRN (Reason: anxiety)
Patient Comments:
04/02/2024: last filled 11/08/22, 30 tabs for 30 days from [facility]
polyethylene glycol 3350 [Miralax] 17 gram/dose Powder
20 - 30 g PO BID
lactulose [Enulose] 10 gram/15 mL Solution
10 g PO DAILYPRN PRN (Reason: constipation)
acetaminophen [Tylenol] 325 mg Tablet
650 mg PO Q4HPRN PRN (Reason: mild pain)
atorvastatin 40 mg tablet
40 mg PO HS
Referrals:
Haritha Ellis MD [Family Provider] -
Activity Restrictions/Additional Instructions:
Encourage plenty of fluids. Continue with fever control with Tylenol or ibuprofen. Please return here for worsening symptoms otherwise follow-up with family doctor
Interventions
Interventions:
*General Assessment Last Done: 09/24/24 17:56
*ED COVID-19 Vaccine History Last Done: 09/24/24 19:00
ED- Pulmonary Assessment Last Done: 09/24/24 19:00
ED- Neurological Assessment Last Done: 09/24/24 19:00
Discharge Date and Time
Print Language: PORTUGUESE
[2024-09-24] MEDS: NSS 1000 IV (18:31)
[2024-09-24 18:46] LABS: Lactic Acid 1.4 mmol/L (0.7-2.0)
[2024-09-24 18:47] LABS: ALT (SGPT) 23 U/L (0-50); AST (SGOT) 28 U/L (17-59); Albumin 4.6 g/dl (3.5-5.0); Alkaline Phosphatase 116 U/L (38-126); Blood Urea Nitrogen 16 mg/dl (9-20); Calcium 8.9 mg/dl (8.4-10.2); Carbon Dioxide 28 mmol/L (22-30); Chloride 101 mmol/L (98-107); Estimated Creatinine Clearance 88 ml/min; Glucose 141 mg/dl (70-99); Potassium 3.6 mmol/L (3.5-5.1); Sodium 138 mmol/L (135-145); Total Bilirubin 1.5 mg/dl (0.2-1.3); Total Protein 6.6 g/dl (6.3-8.2); eGFR > 60.00
[2024-09-24 19:00] VITALS: BP 138/75
[2024-09-24 19:02] LABS: Urine Albumin 2+ (Neg - Trace); Urine Bilirubin Negative (Negative); Urine Character Clear (Clear); Urine Color Yellow; Urine Glucose Negative (Negative); Urine Ketone Negative (Negative); Urine Leukocyte Negative (Negative); Urine Nitrite Negative (Negative); Urine Occult Blood 1+ (Negative); Urine Specific Gravity 1.015 (<1.030); Urine Urobilinogen Negative (Neg - 1+); Urine pH 6.5 (5.0-9.0)
[2024-09-24 19:02] LABS: COVID-19 Antigen Negative (Negative)
[2024-09-24 19:19] LABS: Urine Mucus Few; Urine Squamous Cell 0-2 /LPF (Few)
[2024-09-24 19:20] LABS: Urine Calcium Oxalate Crystals Present
[2024-09-24 19:21] LABS: Urine Bacteria Few (Negative)
[2024-09-24] MEDS: MAALOX 30 ML PO (19:59)
[2024-09-24 20:19] VITALS: BP 109/49
[2024-09-24 20:46] LABS: Troponin I 0.021 ng/ml
[2024-09-24 21:00] VITALS: BP 109/65
== END 2024-09-24 21:40 | disposition home or self-care (01) ==
LOC: EMR 17:43
PROVIDERS: Physician Assistant; EMERGENCY PHYSICIAN Emergency Medicine; FAMILY PHYSICIAN Internal Medicine
DX: J10.1 Influenza due to other identified influenza virus with other respiratory manifestations (principal); Z11.52 Encounter for screening for COVID-19
CPT/HCPCS: 99285; 96360; 71046; 80053; 81003; 81015; 83605; 84484; 85025; 87040; 87502; 87811; 93005

== ENCOUNTER 2024-09-27 14:04 | Inpatient (IN) | payer MEDICARE, MEDICAID, SELFPAY ==
[2024-09-27] VITALS (18 sets, daily range): BP systolic 110–157; BP diastolic 53–88; BMI 20.1; BMI 21.5
--- NOTE | 2024-09-27 10:59 | ED.GENMED ---
History of Present Illness
General
Chief Complaint: Cold/Flu/URI Symptoms
Source: physician primary care sports medicine
Time Seen by Provider: 09/27/24 10:49
History of Present Illness
History of Present Illness:
64-year-old male presents to the emergency room with his sister who is his caregiver. Patient has history of developmental delay and cognitive impairment and therefore lives with his sister. Patient has been unwell for the past week or so. He was
seen here in the emergency room 4 days ago and diagnosed with influenza. He was febrile at that time but with antipyretics and IV fluids he returned close to his baseline and therefore decision was made for him to be cared for at home. It appears
that Tamiflu was declined at the time of the ER visit but has subsequently been prescribed. Over the past 24 hours or so the patient's been more confused. He has developed occasional jerking type motions of his arms and legs. His cough seems more
productive at this point. He is much more confused than baseline.
Past History
Past History
ED Past Medical History: CAD, HTN, NE, Psychiatric (schizoaffective disorder, mental delays) and Other (Constipation, loss of urination control, anemia, impaired vision,); Negative Asthma, Hypercholesterolemia or NIDDM
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
Social History
Tobacco: Non-smoker
Alcohol: None
Drug: None
Personal: Single
Living: with family
Employment: Disabled
Family History
Family History: Other (Noncontributory)
Phy Exam
Physical Exam
Physical Exam:
General: Awake, confused, restless
Vitals: Febrile, tachycardic
Head: Atraumatic
Eyes: Pupils equal, EOMI
Throat: Airway intact, no exudates, somewhat dry mucosa
Neck: Trachea midline
Lungs: Rhonchorous right greater than left
Heart: Regular rate, no murmurs
Abd: Soft, Nontender, No pulsatile mass
Neuro: Nonfocal
Skin: Very warm, dry, no rash
Extremities: pulses equal b/l, no edema
Sepsis
Sepsis Screening
Sepsis Assessment: Severe Sepsis
Sepsis Screening: Lactate >2mmol/L
Sepsis Screen
Sepsis Screen: Severe Sepsis
Date: 09/27/24
Time: 12:00
Course
Orders/Labs/Results
Orders:
Orders
09/27/24 10:56
Cardiac Monitoring- Treatment ONCE
Urinalysis Reflex To Culture Urgent
0.9% Sodium Chloride 1000 ml [Nss] 1,000 ml IV BOLUS
Acetaminophen [Tylenol] 650 mg PO NOW STA
09/27/24 10:57
CR Chest - 2 Views Urgent
Comment:
Reason For Exam: fever, sob
09/27/24 11:02
Electrocardiogram (*1) Urgent
Reason for Study: Tachycardia
EKG- Treatment ONCE
09/27/24 11:09
Complete Blood Count/With Diff Urgent
Comprehensive Metabolic Panel Urgent
Lactic Acid Q4H
Comment: CANCEL 2nd LACTIC ACID IF 1st LACTIC ACID IS LESS THAN 2
Blood Culture Q30M
KEN Source: Blood/Venous
Specimen Description:
Blood Culture Q30M
KEN Source: Blood/Venous
Specimen Description:
09/27/24 11:46
Acetaminophen [Tylenol/Feverall] 650 mg .ROUTE .STK-MED ONE
Acetaminophen [Tylenol/Feverall] 650 mg RECTAL NOW STA
09/27/24 12:05
0.9% Sodium Chloride 1000 ml [Nss] 1,000 ml IV BOLUS
Azithromycin [Zithromax] 500 mg PO NOW STA
CefTRIAXone [Rocephin] 1,000 mg IV NOW STA
09/27/24 12:50
Azithromycin 500 mg/250 ml [Zithromax Infusion] 500 mg in 250 ml IV NOW
09/27/24 15:00
Lactic Acid Q4H
Comment: CANCEL 2nd LACTIC ACID IF 1st LACTIC ACID IS LESS THAN 2
Abnormal Lab Results
09/27/24
11:09
RBC 3.84 L 10^6/uL
(4.70-6.10)
Hgb 10.7 L g/dL
(13.0-18.0)
Hct 33.0 L %
(39.0-52.0)
MCHC 32.4 L g/dL
(33.0-37.0)
RDW 15.7 H %
(11.5-14.5)
Glucose 143 H mg/dl
(70-99)
Lactic Acid 3.3 H mmol/L
(0.7-2.0)
Calcium 7.0 L D mg/dl
(8.4-10.2)
Total Protein 5.0 L D g/dl
(6.3-8.2)
Albumin 2.9 L D g/dl
(3.5-5.0)
09/27/24 11:09
09/27/24 11:09
Vital Signs
Initial and Last Documented VS:
Initial Vital Signs
Temp Pulse Resp BP Pulse Ox
103 F H 119 16 157/65 94
09/27/24 10:49 09/27/24 10:49 09/27/24 10:49 09/27/24 10:49 09/27/24 10:49
Last Documented Vital Signs
Temp Pulse Resp BP Pulse Ox
103 F H 119 16 157/65 94
09/27/24 10:49 09/27/24 10:49 09/27/24 10:49 09/27/24 10:49 09/27/24 10:49
MDM/Problems Addressed
Differential Diagnosis Includes:
Persistent flu symptoms, secondary pneumonia, urinary tract infection
MDM/Problems Addressed:
Patient presents with worsening symptoms of fever, weakness and confusion. He is febrile here. Workup reveals infiltrate on chest x-ray. Patient's lactate is elevated at 3.3 but fortunately patient is not hypotensive. Antipyretics administered.
Sepsis fluid bolus administered. Rocephin and Zithromax provided as this is presentation is consistent with community-acquired pneumonia.
*Radiology
Radiology exam reviewed: preliminary read by ED provider (Left basilar infiltrate)
*Pulse Oximetry
Patient hypoxic: no
*EKG
Interpreted by ED Provider?: Yes
Heart Rate: 117
Rate: tachycardiac
Rhythm: PVC's and sinus tachycardia
[place]: normal axis
Interval: normal interval
QRS Pattern: normal QRS
Ischemia: non-specific ST changes
*Bag Machine Operator Interpretation
Rate: tachycardiac
Interpretation: abnormal
Rhythm: PVC's and sinus tachycardia
*Critical Care Note
Total Time (30-74mins, 75-104mins- exclusive of procedures): Not Applicable
Data Reviewed
Review of Other/Old Records Reveals: Radiology Studies (X-ray from September 24)
ED Attending Note
-
Portions of this chart may have been created with voice recognition software.� Occasional wrong word or��sound alike� substitutions may have occurred due to the inherent limitations of voice recognition software.
Discharge Plan
Departure
Patient Disposition: Admit
Date of Disposition: 09/27/24
Time of Disposition: 12:21
Admit to: Med/Surg
Presentation/result/management discussed w/ accepting MD/DO: Hospitalist
Condition: Fair
Discharge Problem:
Pneumonia
Prescriptions:
No Action
nitroglycerin 0.4 MG tablet, sublingual
0.4 mg sublingual [id number] PRN (Reason: chest pain) Qty: 25 0RF
bisacodyl 5 MG tablet,delayed release (DR/EC)
5 mg PO DAILYPRN PRN (Reason: constipation)
finasteride 5 MG tablet
5 mg PO HS
clozapine 100 MG tablet
200 mg PO HS
clozapine 100 MG tablet
150 mg PO DAILY
Patient Comments:
04/02/2024: take with 50mg to equal 150mg in the morning.
aspirin 81 mg Tablet,Delayed Release (Dr/Ec)
81 mg PO DAILY
calcium carbonate 600 mg calcium (1,500 mg) Tablet
600 mg PO DAILY
methenamine hippurate 1 gram Tablet
1 g PO BID
cholecalciferol (vitamin D3) 25 mcg (1,000 unit) Tablet
25 mcg PO DAILY
omeprazole 40 mg Capsule,Delayed Release(Dr/Ec)
40 mg PO BID
sennosides [senna] 8.6 mg Tablet
8.6 mg PO DAILYPRN PRN (Reason: constipation)
phenazopyridine 200 mg Tablet
200 mg PO DAILYPRN PRN (Reason: urinary tract pain)
polyethylene glycol 3350 [Miralax] 17 gram/dose Powder
35 g PO BID
lactulose [Enulose] 10 gram/15 mL Solution
10 g PO DAILYPRN PRN (Reason: constipation)
acetaminophen [Tylenol] 325 mg Tablet
650 mg PO Q4HPRN PRN (Reason: mild pain)
atorvastatin 40 mg tablet
40 mg PO HS
oseltamivir [Tamiflu] 75 mg Capsule
75 mg PO BID
Rx Instructions:
09/27/24: Started 09/25/24
Referrals:
Haritha Ellis MD [Family Provider] -
Interventions
Interventions:
*Risk Screen - Suicide Last Done: 09/27/24 11:45
*General Assessment Last Done: 09/27/24 11:45
*Neglect/Abuse Screening Last Done: 09/27/24 11:45
ED- Pulmonary Assessment Last Done: 09/27/24 11:45
Discharge Date and Time
Print Language: K[place]
[2024-09-27 11:39] LABS: Lactic Acid 3.3 mmol/L (0.7-2.0)
[2024-09-27 11:40] LABS: ALT (SGPT) 27 U/L (0-50); AST (SGOT) 50 U/L (17-59); Albumin 2.9 g/dl (3.5-5.0); Alkaline Phosphatase 109 U/L (38-126); Blood Urea Nitrogen 20 mg/dl (9-20); Carbon Dioxide 23 mmol/L (22-30); Chloride 106 mmol/L (98-107); Glucose 143 mg/dl (70-99); Potassium 3.6 mmol/L (3.5-5.1); Sodium 137 mmol/L (135-145); Total Bilirubin 1.2 mg/dl (0.2-1.3); eGFR > 60.00
[2024-09-27 11:50] LABS: Hemoglobin 10.7 g/dL (13.0-18.0); Mean Corp Hgb Conc. 32.4 g/dL (33.0-37.0); Mean Corpuscular Hgb 27.9 pg (27.0-31.0); Mean Corpuscular Volume 85.9 fL (80.0-94.0); Mean Platelet Volume 10.4 fL (7.4-10.4); Platelet Count 137 10^3/uL (130-400); Red Blood Cell Count 3.84 10^6/uL (4.70-6.10); Red Cell Dist. Width 15.7 % (11.5-14.5); White Blood Cell Count 5.6 10^3/uL (4.8-10.8)
[2024-09-27] MEDS: NSS 1000 IV ×3 (12:04→16:22)
[2024-09-27] MEDS: TYLENOL/FEVERALL 650 MG RECTAL (12:06)
[2024-09-27 12:51] LABS: % Basophils 0.4 % (0-2); % Immature Granulocytes 1.1 % (0-0.5); % Lymphocytes 5.5 % (20.5-51.1); % Monocytes 4.6 % (1.7-9.3); % Neutrophils 88.4 % (42.2-75.2); Absolute Immature Granulocytes 0.1 10^3/uL (0-0.05); Absolute Lymphocytes 0.3 10^3/uL (1.2-3.4); Absolute Monocytes 0.3 10^3/uL (0.1-0.6); Nucleated Red Blood Cells % 0 % (-)
--- NOTE | 2024-09-27 12:57 | HPS.HSE ---
Addendum entered and electronically signed by JOSI Anthony 09/27/24 16:52:
Per sister has chronic excessive oral secretions wakes up drooling with a soaked pillow has not tried any medications for this
-We will try atropine sublingual drops while inpatient
Addendum entered and electronically signed by JOSI Anthony 09/27/24 16:50:
Dietary adjustment
-Per SUPERVISOR BOILER REPAIR n.p.o. except meds whole/crushed in pur�e
Supervision with oral care
Recommend suctioning as needed
-Aspiration risk hydration protocol
Excessive oral secretion
-Will try atropine sublingual drops due to excessive oral secretions
Original Note:
Family Physician
-
Family Physician: Haritha Ellis
Chief Complaint
-
Cough, fever, rigors, increased confusion from baseline
History of Present Illness
64-year-old male with history of developmental delay and cognitive impairment who lives with his sister. Patient had recent influenza diagnosed 3 days ago in the emergency department on 09/24/2024 with symptoms of fever, weakness. Due to feeling
better after IV fluids and antipyretics he was sent home they had declined Tamiflu at that time. She spoke with patient's attending Dr. Ellis who had her start Tamiflu on 09/25/2024. Patient has 2 days left. Over the past 24 hours according to
his family he has become more confused with occasional jerking type of movements to his arms and legs. I explained the jerking type movements were rigors secondary to 103 F temperature. She reports he is very weak when he becomes sick he is unable
to follow commands is unable to walk with his leg braces. She states at baseline he typically is able to walk with his leg braces small distances in the home needs assistance with ADLs she is his guardian and lives with him 24 hours a day. She
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 At baseline he is unable to verbally communicate with her, when he
coughs he is unable to spit into a tissue he swallows it. The patient has currently 103 F temperature in ER HR 119, BP 157/65 With chest x-ray showing small patchy left basilar opacity reflecting pneumonia
He has past medical history of chronic developmental delay, cognitive impairment,Ogilvey syndrome, schizoaffective disorder, CAD/ID, cardiac stents times 11/18/2016,, HTN, GERD, constipation, BPH, chronic urinary incontinence, anemia, impaired vision
Medical History
Past Medical History
Past Medical History: Reports Other
Additional Past Medical History:
chronic developmental delay
cognitive impairment
schizoaffective disorder
CAD/ID, cardiac stents times 11/18/2016
HTN
GERD
constipation/Ogilvey syndrome
BP
chronic urinary incontinence
anemia,
impaired vision
Chronic ambulatory dysfunction uses braces and wheelchair
Past Surgical History: Reports Other
Additional Past Surgical History:
Bilateral hip replacement
Undescended testes as child repair
Hernia repair as child
Cardiac stents times 11/18/2016
Social History
Tobacco: Non-smoker
Alcohol: None
Drug: None
Personal: Single
Living: With Family (With Sister Carlita who is his 24-hour caregiver)
Employment: Disabled
Family History
Family History: Not pertinent
Allergies / Home Medications
Allergies reflects when Allergies were last updated in [employer].
Home Medications with original date entered in [employer]
Allergy/Medication List:
Allergies
Allergy/AdvReac Type Severity Reaction Status Date / Time
citalopram [From Celexa] Allergy Unknown Unknown Verified 09/24/24 18:27
alprazolam [From Xanax] Allergy Unknown Verified 09/24/24 18:27
olanzapine [From Zyprexa] Allergy Unknown Verified 09/24/24 18:27
quetiapine [From Seroquel] Allergy Unknown Verified 09/24/24 18:27
sertraline [From Zoloft] Allergy Unknown Verified 09/24/24 18:27
trimethoprim [From Bactrim] Allergy Unknown Verified 09/24/24 18:27
alendronate sodium AdvReac Reflux Verified 09/24/24 18:27
[From Fosamax]
benztropine AdvReac Unknown Verified 09/24/24 18:27
fluphenazine AdvReac Unknown Verified 09/24/24 18:27
haloperidol AdvReac Unknown Verified 09/24/24 18:27
sulfamethoxazole AdvReac Disorientat Verified 09/24/24 18:27
[From Bactrim] ion
trifluoperazine AdvReac Unknown Verified 09/24/24 18:27
Home Medications
nitroglycerin 0.4 mg sublingual tablet 0.4 mg sublingual [id number] PRN chest pain #25 tabs 11/25/16
bisacodyl 5 mg tablet,delayed release 5 mg PO DAILYPRN PRN constipation 09/04/21
clozapine 100 mg tablet 150 mg PO DAILY mental health 09/04/21
clozapine 100 mg tablet 200 mg PO HS Mental Health 09/04/21
finasteride 5 mg tablet 5 mg PO HS Urinary issue 09/04/21
aspirin 81 mg tablet,delayed release 81 mg PO DAILY Blood Clot Prevention/Tx 05/24/23
calcium carbonate 600 mg PO DAILY Supplement 05/24/23
cholecalciferol (vitamin D3) 25 mcg (1,000 unit) tablet 25 mcg PO DAILY Supplement 05/24/23
methenamine hippurate 1 gram tablet 1 g PO BID urinary infection prevention 05/24/23
omeprazole 40 mg capsule,delayed release 40 mg PO BID Gastrointestinal Issue 05/24/23
acetaminophen 325 mg tablet (Tylenol) 650 mg PO Q4HPRN PRN mild pain 06/14/23
lactulose 10 gram/15 mL oral solution (Enulose) 10 g PO DAILYPRN PRN constipation 06/14/23
phenazopyridine 200 mg tablet 200 mg PO DAILYPRN PRN urinary tract pain 06/14/23
polyethylene glycol 3350 17 gram/dose oral powder (Miralax) 35 g PO BID Constipation 06/14/23
sennosides 8.6 mg tablet (senna) 8.6 mg PO DAILYPRN PRN constipation 06/14/23
atorvastatin 40 mg tablet 40 mg PO HS 04/02/24
oseltamivir 75 mg capsule (Tamiflu) 75 mg PO BID 09/27/24
Review of Systems
-
History Source: Family (Sister Carlita)
A 12 point ROS was completed and negative except as noted: Yes
Constitutional: Reports Fever, Chills and Other (Rigors described as jerking movements at home)
Respiratory: Reports Cough and Trouble Breathing
Cardiac: Denies Chest Pain or Palpitations
Abdomen/GI: Reports Other (Chronic ABD distention); Denies Abdominal Pain, Nausea, Vomiting, Diarrhea, Constipated, Bloody Stools or Black Stools
: Reports Incontinence (Chronic urinary); Denies Frequency
Musculoskeletal: Denies Joint Pain or Edema
Skin: Denies Rash
Neurological: Reports Weakness (Generalized)
Hematologic/Lymphatic: Reports No Symptoms
Psych: Reports Calm
Physical Exam
Vital Signs
Vital Signs
Temp Pulse Resp BP Pulse Ox
103 F H 119 16 157/65 94
09/27/24 10:49 09/27/24 10:49 09/27/24 10:49 09/27/24 10:49 09/27/24 10:49
Physical Exam
General: Fever, Chills and Other (Generalized weakness does respond to first and last name is unable to answer any questions or review of systems due to chronic baseline developmental delay)
HEENT: NormoCephalic, Anicteric, PERRLA, [place] Conjunctivae, No Ptosis and Oxygen (2 L nasal cannula)
Respiratory: Rhonchi (Diffuse throughout both lung warren) and Other (Active cough but is unable to spit into tissue per sister at baseline)
Cardiac: S1/S2 and Tachycardia (Sinus); No Murmur, Rub, Gallop or Peripheral Edema
Breast: Deferred by me
GI: Soft and Distended (Chronic distention last large bowel movement 2 days ago normal bowel movements past 2 days on current bowel regimen)
Genito-urinary: Deferred by me
Musculoskeletal: No Clubbing, No Cyanosis and No Edema
Skin: Warm and Dry; No Rash
Neuro: Awake and Alert (Response to name with looking in my direction, actively coughing and swallowing mucus); No Facial Droop, Tremors or Sedated
Psych: Calm
Laboratory Results
-
09/27/24 11:09
09/27/24 11:09
Laboratory Results
Lactic Acid 3.3 mmol/L (0.7-2.0) H 09/27/24 11:09
Total Bilirubin 1.2 mg/dl (0.2-1.3) 09/27/24 11:09
AST 50 U/L (17-59) 09/27/24 11:09
ALT 27 U/L (0-50) 09/27/24 11:09
Alkaline Phosphatase 109 U/L (38-126) 09/27/24 11:09
Data Reviewed
-
Diagnostic Radiology: Report Reviewed by me
Lab Data: Labs Reviewed by me
Impression/Plan
-
Impression/plan:
Admit to telemetry
TME secondary to FEVER / INFLUENZA A/ LEFT basilar PNA
-103F, HR 119, BP 157/65,93% 2 L nasal cannula
-Family had declined Tamiflu 3 days ago, but did start on 09/25/2024 per PCP recommendations has taken 3 days worth
-Continue Tamiflu 75 mg twice daily x 2 additional days
-Tylenol as needed fever
-2 L IV NSS given in ER
-IV Zithromax, IV Rocephin
-Blood cultures x 2
-Follow CBC, CMP
-PT/OT/case management consult
-Speech swallow eval
#-Chronic developmental delay
#Chronic cognitive impairment/schizoaffective disorder
-Continue clozapine 20 mg at bedtime, 150 mg p.o. daily
#Chronic dysphagia
-Takes meds with yogurt to take a.m. medication 09/27/2024
-Speech swallow eval when more alert
# HTN
157/65
No reported meds
#CAD/ID
cardiac stents times 11/18/2016
-Continue aspirin 81 mg daily, atorvastatin 40 mg at bedtime
#GERD
-Continue omeprazole 40 mg twice daily, calcium carbonate 600 mg daily
#Chronic anemia�normocytic
Hgb 10.7 < 11.9 on 09/24/2024
#Chronic constipation/,Ogilvey syndrome
-Monitor bowel movements
-Last large bowel movement 2 days ago Tuesday, daily bowel movement times past 2 days per sister Carlita who is guardian at bedside she will be staying with him
-As needed lactulose 10 g daily constipation, continue MiraLAX 35 g p.o. twice daily, senna 8.6 mg daily as needed constipation
#Chronic urinary incontinence
#BPH
-Continue Hiprex 1 g p.o. twice daily
-Continue finasteride 5 mg at bedtime
# impaired vision
# Chronic ambulatory dysfunction uses braces and wheelchair at baseline
#COVID-19 infection 06/17/2023 require hospital stay with Decadron, remdesivir, O2 support
DVT prophylaxis
-Subcu Lovenox
[2024-09-27] MEDS: ZITHROMAX INFUSION 250 IV (12:58)
[2024-09-27] MEDS: ROCEPHIN 1000 MG IV (12:59)
--- NOTE | 2024-09-27 14:09 | W.PN.UPDATE ---
Update Note
Progress Note Update
I could not get any information from the patient has [facility]
Information gathered by chart review and speaking with the ER staff nd medical care manager
This note serves as an addendum to the H&P by repairer cylinder heads JOE
Rosaura SOLISURGIS
I saw and examined the patient.
The FITNESS WORKER or PA's note was reviewed and I agree with the note.
Comment:
64M lives with Sister at home HX developmental delay and cognitive impairment
Recent nt influenza diagnosed 3 days ago in the emergency department on 09/24/2024 with symptoms of fever, weakness. Due to feeling better after IV fluids and antipyretics he was sent home they had declined Tamiflu at that time. Then PCP
Rhonda who had her start Tamiflu on 09/25/2024.
Over the past 24 hours according to his family he has become more confused with occasional jerking type of movements to his arms and legs. He becomes very weak and unable to follow commands is unable to walk with his leg braces. She states at
baseline he typically is able to walk with his leg braces small distances in the home needs assistance with ADLs she is his guardian and lives with him 24 hours a day.
At baseline he is unable to verbally communicate with her, when he coughs he is unable to spit into a tissue he swallows it.
PMHX:
developmental delay with cognitive impairmen
Ogilvey syndrome
schizoaffective disorder
CAD/TN, cardiac stents times 11/18/2016,
HTN
GERD
constipation
BPH
chronic urinary incontinence
anemia
impaired vision
VS: 103 F temperature in ER HR 119, BP 157/65
CXR : small patchy left basilar opacity reflecting pneumonia
ASSESSMENT & PLAN
TME with weakness due FEVER / INFLUENZA A/ LEFT basilar PNA
Associated SIRS picture due to suspected PNA
- Severely deconditioning
- c/w Tamiflu d3 of 5 days ago - x 2 more days
-Tylenol as needed fever
-2 L IV NSS given in ER
-IV Zithromax, IV Rocephin
-Blood cultures x 2
-PT/OT/case management consult
-Speech swallow eval
Known Chronic developmental delay
Associated cognitive impairment/schizoaffective disorder
Impaired vision
Chronic ambulatory dysfunction uses braces and wheelchair at baseline
- on ASSOCIATE PROFESSOR OF MATHEMATICS clozapine 20 mg at bedtime, 150 mg p.o. daily
- PT/OT
Chronic dysphagia
-Takes meds with yogurt to take a.m. medication 09/27/2024
- Speech swallow eval when more alert
Benign HTN
157/65
No reported Meds
CAD/TN with HX cardiac stents times 11/18/2016
- on ASSOCIATE PROFESSOR OF MATHEMATICS aspirin 81 mg daily, atorvastatin 40 mg at bedtime
Chronic anemia�normocytic
Hgb 10.7 < 11.9 on 09/24/2024
Chronic constipation/[place] syndrome HX
-Last large bowel movement 2 days ago Tuesday, daily bowel movement times past 2 days per sister Carlita who is guardian at bedside she will be staying with him
-As needed lactulose 10 g daily constipation, continue MiraLAX 35 g p.o. twice daily, senna 8.6 mg daily as needed constipation
Chronic urinary incontinence
BPH HX
-Continue Hiprex 1 g p.o. twice daily
-Continue finasteride 5 mg at bedtime
DVT prophylaxis: LMWH
Full code
IP TLM
[2024-09-27 16:03] LABS: Lactic Acid 1.4 mmol/L (0.7-2.0)
[2024-09-27] MEDS: TYLENOL 650 MG PO ×2 (16:22→20:55)
--- NOTE | 2024-09-27 17:00 | PTOTSP ---
ST Acute Care Evaluation
Pt currently presents with clinical signs of suspected moderate oropharyngeal dysphagia characterized by reduced secretion management as evidenced by coughing prior to PO and pooling secretions in oral cavity as well as weak coughing s/p ingestion
of both small and large quantities of thin liquids despite the administration method.
Recommendations:
- Keep pt NPO except meds whole/crushed in puree.
- ARHP - sips/chips with supervision sparingly after oral care.
- Aspiration/reflux precautions: HOB upright as often as possible; oral care QID with suctioning as needed.
- CORNER FORMER to f/u to re-evaluate pt's candidacy for PO diet initiation and to determine if pt would benefit from a repeat instrumental swallow study.
[2024-09-27] MEDS: LOVENOX 40 MG SC (18:13)
[2024-09-27] MEDS: TAMIFLU 75 MG PO (20:54)
[2024-09-27] MEDS: HIPREX 1 GRAM PO (20:54)
[2024-09-27] MEDS: PROSCAR 5 MG PO (20:54)
[2024-09-27] MEDS: LIPITOR 40 MG PO (20:54)
[2024-09-27] MEDS: CLOZARIL 200 MG PO (20:54)
[2024-09-27] MEDS: PROTONIX 40 MG PO (20:54)
[2024-09-27] MEDS: MIRALAX PO ×2 (20:55→22:00)
[2024-09-28] VITALS (8 sets, daily range): BP systolic 110–149; BP diastolic 58–77; PULSE 85–91; O2SAT 100; BMI 21.4
[2024-09-28] MEDS: NSS 1000 IV ×2 (05:23→19:39)
[2024-09-28] MEDS: CLOZARIL 150 MG PO (07:35)
[2024-09-28] MEDS: TAMIFLU 75 MG PO ×2 (07:36→19:39)
[2024-09-28] MEDS: ASPIR LOW (ENTERIC COATED) 81 MG PO (07:36)
[2024-09-28] MEDS: PROTONIX 40 MG PO ×2 (07:36→19:38)
[2024-09-28] MEDS: VITAMIN D3 (cholecalciferol) 25 MCG PO (07:36)
[2024-09-28] MEDS: HIPREX 1 GRAM PO ×2 (07:37→19:39)
[2024-09-28] MEDS: MIRALAX 34 GRAMS PO ×2 (07:37→19:39)
[2024-09-28] MEDS: OSCAL CAL 500 500 MG PO (07:37)
[2024-09-28 08:37] LABS: Hematocrit 32.9 % (39.0-52.0); Hemoglobin 10.5 g/dL (13.0-18.0); Mean Corp Hgb Conc. 31.9 g/dL (33.0-37.0); Mean Corpuscular Hgb 27.1 pg (27.0-31.0); Mean Corpuscular Volume 84.8 fL (80.0-94.0); Mean Platelet Volume 10.3 fL (7.4-10.4); Platelet Count 144 10^3/uL (130-400); Red Blood Cell Count 3.88 10^6/uL (4.70-6.10); White Blood Cell Count 4.4 10^3/uL (4.8-10.8)
[2024-09-28 09:02] LABS: ALT (SGPT) 31 U/L (0-50); AST (SGOT) 56 U/L (17-59); Albumin 2.8 g/dl (3.5-5.0); Alkaline Phosphatase 133 U/L (38-126); Blood Urea Nitrogen 21 mg/dl (9-20); Calcium 7.2 mg/dl (8.4-10.2); Carbon Dioxide 25 mmol/L (22-30); Chloride 111 mmol/L (98-107); Estimated Creatinine Clearance 116 ml/min; Glucose 99 mg/dl (70-99); Sodium 140 mmol/L (135-145); Total Bilirubin 1.2 mg/dl (0.2-1.3); Total Protein 5.1 g/dl (6.3-8.2); eGFR > 60.00
[2024-09-28 10:17] LABS: % Basophils 0.5 % (0-2); % Immature Granulocytes 0.2 % (0-0.5); % Lymphocytes 15.1 % (20.5-51.1); % Monocytes 6.1 % (1.7-9.3); % Neutrophils 78.1 % (42.2-75.2); Absolute Lymphocytes 0.7 10^3/uL (1.2-3.4); Absolute Monocytes 0.3 10^3/uL (0.1-0.6); Absolute Neutrophils 3.5 10^3/uL (1.4-6.5); Nucleated Red Blood Cells % 0 % (-)
[2024-09-28] MEDS: ROCEPHIN 1000 MG IV (11:43)
[2024-09-28] MEDS: ZITHROMAX INFUSION 250 IV (11:44)
[2024-09-28] MEDS: STERILE WATER FOR INJECTION 10 ML IV (11:44)
--- NOTE | 2024-09-28 13:16 | W.PN.HOSP.TC ---
Addendum entered and electronically signed by Herman Mullins MD 09/30/24 16:10:
sepsis
stage 2 sacral pressure injury POA
Original Note:
Today's Communication/Plan
-
Wean O2 as tolerated. Continue IV antibiotics. Continue Tamiflu. Stop atropine. Had a lengthy discussion at bedside with sister about anticholinergics. States that drooling is chronic and is okay with that.
Assessment / Plan
Assessment / Plan
NAD, thin, on supplemental O2
Scleral Anicteric
MMM
No JVD
CTABL
RRR, S1/S2
Soft, NT, ND, BS+
Warm, Dry
Acute hypoxemic respiratory failure along with toxic metabolic encephalopathy in the setting of left basilar pneumonia/influenza
-Tamiflu
-IV antibiotics
-Wean oxygen
#-Chronic developmental delay
#Chronic cognitive impairment/schizoaffective disorder
-Continue clozapine 20 mg at bedtime, 150 mg p.o. daily
#Chronic dysphagia
-Takes meds with yogurt to take a.m. medication 09/27/2024
-Speech swallow eval when more alert
# HTN
157/65
No reported meds
#CAD/PA
cardiac stents times 11/18/2016
-Continue aspirin 81 mg daily, atorvastatin 40 mg at bedtime
#GERD
-Continue omeprazole 40 mg twice daily, calcium carbonate 600 mg daily
#Chronic anemia�normocytic
Hgb 10.7 < 11.9 on 09/24/2024
#Chronic constipation/,Ogilvey syndrome
-Monitor bowel movements
-Last large bowel movement 2 days ago Tuesday, daily bowel movement times past 2 days per sister Carlita who is guardian at bedside she will be staying with him
-As needed lactulose 10 g daily constipation, continue MiraLAX 35 g p.o. twice daily, senna 8.6 mg daily as needed constipation
#Chronic urinary incontinence
#BPH
-Continue Hiprex 1 g p.o. twice daily
-Continue finasteride 5 mg at bedtime
Anticipated Discharge: 24 - 48 hours
Subjective/Interval History
-
Date of Service: September 28, 2024
Seen and examined. Sister at bedside. No new complaints. All questions answered and updated
Objective Data
-
Labs:
Laboratory Results
09/28/24
08:11
WBC 4.4 L
Hgb 10.5 L
Hct 32.9 L
Plt Count 144
Sodium 140
Potassium 4.0
Chloride 111 H
Carbon Dioxide 25
BUN 21 H
Creatinine 0.6 L
Glucose 99
Calcium 7.2 L
Total Bilirubin 1.2
AST 56
ALT 31
Alkaline Phosphatase 133 H
Vital Signs:
Vital Signs
Temp Pulse Resp BP Pulse Ox
98 F 98 16 149/72 98
09/28/24 11:11 09/28/24 11:11 09/28/24 11:11 09/28/24 11:11 09/28/24 11:11
I&O
09/27/24 09/28/24 09/29/24
06:59 06:59 06:59
Intake Total 960 / 960
Balance 960 / 960
--- NOTE | 2024-09-28 14:27 | CM ---
Patient seen at bedside with patient sister also present. Per patient sister they live in a 2 story home together, home is the same one patient has lived in all of his life. Patient PCP is Dr. Wagner and she uses the [facility]. Patient has
had [facility] in the past for PT/OT and has a wheelchair, walker, braces and hospital bed at home. Patient attends adult day care 5days weekly at [facility]. Patient sister plan is for patient to go home with VN if needed. CM will continue to
follow for discharge planning needs.
Plan; home with VN; tt sent to liaison about possible need for VN
--- NOTE | 2024-09-28 15:28 | PN.CDI ---
CDI
- -
CDI:
Physician Documentation Request
Admit Date: 09/27/24 14:04
Dear Doctor Harpreet,
Please review the following and provide your response in the progress notes.
Clinical Indicators:
Pt admitted with TME secondary to Influenza A and Left basilar pneumonia.
@ RN noted in the skin assessment under wound panel, stage 2 sacral pressure injury POA.
Physician documentation of the type and location of wounds is required for compliant documentation. Based on the above clinical findings and your assessment, please provide the following in your progress note:
1. Location of the ulcer/wound, including laterality.
2. Type (etiology) of ulcer/wound:
Sacral pressure injury POA
Sacral non-pressure injury POA
Other
Use of terms such as suspected, likely, concern for, or probable (associated with a specific diagnosis that is being evaluated, monitored, or treated as if it exists) are acceptable and can be coded in the inpatient setting, when documented at the
time of discharge.
Thank you,
Yenifer Hummel RN, BSN
CDI Specialist
[facility] [employer]
Please use your independent medical judgment in providing your response.
*Source: National Pressure Ulcer Advisory Panel (NPUAP)
--- NOTE | 2024-09-28 15:35 | PN.CDI ---
CDI
- -
CDI:
Physician Documentation Request
Admit Date: 09/27/24 14:04
Dear Doctor Harpreet,
Please review the following and provide your response in the progress notes.
Clinical Indicators:
Pt admitted with TME secondary to Influenza A and Left basilar pneumonia.
09/27 Update Note: 'Associated SIRS picture due to suspected PNA'
Selected Entries
09/27/24
10:49 09/27/24
15:04
Temp 103 F H 102.4 F H
Pulse 119 105
Resp Rate 22
Please clarify which of the following most accurately describes the status of the patient's infection:
Sepsis
- Systemic manifestations of infection, with 2 or more SIRS criteria which include:
- Fever >100.4 degrees F or hypothermia < 96.8 degrees F
- Leukocytosis - WBC > 12,000 or leukopenia - WBC < 4,000 or > 10% bands
- Tachycardia > 90 beats per minute
- Tachypnea - RR > 20 breaths per minute or PaCO2 , 32mmHg
Source: Merck Manual 2013
Localized Infection Only, Without Systemic Illness
- indicate the site/source, such as UTI, pneumonia etc.
Other
Use of terms such as suspected, likely, concern for, or probable (associated with a specific diagnosis that is being evaluated, monitored, or treated as if it exists) are acceptable and can be coded in the inpatient setting, when documented at the
time of discharge.
Thank you,
Yenifer Hummel RN, BSN
CDI Specialist
[employer]
Please use your independent medical judgment in providing your response.
--- NOTE | 2024-09-28 16:22 | VNURNOTE ---
Chart reviewed. Home Health Liaison spoke with patient's sister Carlita to discuss [facility] nurse/therapy, visits, schedule and homebound status. She is agreeable and understands that visits at home will be 2-3 x per week to assess and teach medical
management. They are familiar with VN services, have had us in the past. Sister is aware that [facility] will contact them for start of care in 1-2 days after discharge from .
[facility] referral completed in [facility].
[2024-09-28] MEDS: LOVENOX 40 MG SC (17:18)
[2024-09-28] MEDS: SENOKOT 8.6 MG PO (19:38)
[2024-09-28] MEDS: LIPITOR 40 MG PO (19:39)
[2024-09-28] MEDS: PROSCAR 5 MG PO (19:40)
[2024-09-28] MEDS: CLOZARIL 200 MG PO (19:40)
[2024-09-28] MEDS: TYLENOL 650 MG PO (19:46)
--- NOTE | 2024-09-29 02:50 | PTCARENOTE ---
weaned to room air-
[2024-09-29 03:31] VITALS: BP 120/65
[2024-09-29 06:00] VITALS: BMI 21.4
[2024-09-29 06:47] LABS: % Basophils 0.4 % (0-2); % Eosinophils 0.6 % (0-6); % Immature Granulocytes 0.4 % (0-0.5); % Lymphocytes 19.8 % (20.5-51.1); % Monocytes 8.2 % (1.7-9.3); % Neutrophils 70.6 % (42.2-75.2); Absolute Lymphocytes 0.9 10^3/uL (1.2-3.4); Absolute Monocytes 0.4 10^3/uL (0.1-0.6); Absolute Neutrophils 3.3 10^3/uL (1.4-6.5); Hematocrit 28.7 % (39.0-52.0); Hemoglobin 9.5 g/dL (13.0-18.0); Mean Corp Hgb Conc. 33.1 g/dL (33.0-37.0); Mean Corpuscular Hgb 27.8 pg (27.0-31.0); Mean Corpuscular Volume 83.9 fL (80.0-94.0); Mean Platelet Volume 9.8 fL (7.4-10.4); Nucleated Red Blood Cells % 0 % (-); Platelet Count 146 10^3/uL (130-400); Red Blood Cell Count 3.42 10^6/uL (4.70-6.10); Red Cell Dist. Width 16.4 % (11.5-14.5); White Blood Cell Count 4.6 10^3/uL (4.8-10.8)
[2024-09-29 07:08] LABS: ALT (SGPT) 27 U/L (0-50); AST (SGOT) 45 U/L (17-59); Albumin 2.4 g/dl (3.5-5.0); Alkaline Phosphatase 113 U/L (38-126); Blood Urea Nitrogen 27 mg/dl (9-20); Calcium 6.9 mg/dl (8.4-10.2); Carbon Dioxide 25 mmol/L (22-30); Chloride 114 mmol/L (98-107); Estimated Creatinine Clearance 116 ml/min; Glucose 86 mg/dl (70-99); Potassium 3.8 mmol/L (3.5-5.1); Sodium 143 mmol/L (135-145); Total Bilirubin 0.8 mg/dl (0.2-1.3); Total Protein 4.4 g/dl (6.3-8.2); eGFR > 60.00
[2024-09-29 07:46] VITALS: BP 126/66
[2024-09-29] MEDS: HIPREX 1 GRAM PO ×2 (09:26→20:05)
[2024-09-29] MEDS: TAMIFLU 75 MG PO (09:26)
[2024-09-29] MEDS: MIRALAX 34 GRAMS PO ×2 (09:26→20:05)
[2024-09-29] MEDS: OSCAL CAL 500 500 MG PO (09:26)
[2024-09-29] MEDS: VITAMIN D3 (cholecalciferol) 25 MCG PO (09:27)
[2024-09-29] MEDS: PROTONIX 40 MG PO ×2 (09:27→20:04)
[2024-09-29] MEDS: CLOZARIL 150 MG PO (09:27)
[2024-09-29] MEDS: ASPIR LOW (ENTERIC COATED) 81 MG PO (09:27)
[2024-09-29 11:12] VITALS: BP 124/66
--- NOTE | 2024-09-29 12:12 | W.PN.HOSP.TC ---
Today's Communication/Plan
-
Assessment / Plan
Assessment / Plan
NAD, thin, on supplemental O2
Scleral Anicteric
MMM
No JVD
CTABL
RRR, S1/S2
Soft, NT, ND, BS+
Warm, Dry
Acute hypoxemic respiratory failure along with toxic metabolic encephalopathy in the setting of left basilar pneumonia/influenza
-Tamiflu
-IV antibiotics
-Wean oxygen
#-Chronic developmental delay
#Chronic cognitive impairment/schizoaffective disorder
-Continue clozapine 20 mg at bedtime, 150 mg p.o. daily
#Chronic dysphagia
-Takes meds with yogurt to take a.m. medication 09/27/2024
-Speech evaluated recommended video swallow. However I had a discussion with his sister at bedside who is medical power of assistant county attorney. She understands the benefits versus risk. And has accepted the risk that if she provides him with a diet of IDDSI
4 pur�ed with mildly thick liquids like bernard juice that there is a potential that he could aspirate respiratory distress cardiac arrest and . She verbalized understanding's and the magnitude of this decision but believes that this would
likely provide him with more benefit as he has a known history of severe GERD and [place] syndrome and by withholding a diet his GERD will become more severe and this will allow for increased risk of developing Lucy syndrome. The reason why she
wants to do this his mental status waxes and wanes throughout the day and if he was to go for a speech/video swallow it might be at the lower point and at that point he would stay n.p.o. however 1 hour prior to the video swallow 2 hours later after
video swallow his mental status may be better and he might pass video swallow.
-She tells me that she knows him the best for which has agreed as he does live with her, he she does provide him with full-time care. When his baseline status is at the bottom she spoon feeds him however when it is at peak performance he is able to
feed himself.
-Therefore I have gone ahead started him on a pur�ed diet after speaking with his sister about this. If he is able to tolerate diet well today and tomorrow then potentially discharge.
# HTN
157/65
No reported meds
#CAD/GA
cardiac stents times 11/18/2016
-Continue aspirin 81 mg daily, atorvastatin 40 mg at bedtime
#GERD
-Continue omeprazole 40 mg twice daily, calcium carbonate 600 mg daily
#Chronic anemia�normocytic
Hgb 10.7 < 11.9 on 09/24/2024
#Chronic constipation/,Ogilvey syndrome
-Monitor bowel movements
-Last large bowel movement 2 days ago Tuesday, daily bowel movement times past 2 days per sister Carlita who is guardian at bedside she will be staying with him
-As needed lactulose 10 g daily constipation, continue MiraLAX 35 g p.o. twice daily, senna 8.6 mg daily as needed constipation
#Chronic urinary incontinence
#BPH
-Continue Hiprex 1 g p.o. twice daily
-Continue finasteride 5 mg at bedtime
Anticipated Discharge: 24 - 48 hours
Subjective/Interval History
-
Date of Service: September 29, 2024
Seen and examined. Off oxygen. Sister at bedside.
Objective Data
-
Labs:
Laboratory Results
09/29/24
06:27
WBC 4.6 L
Hgb 9.5 L
Hct 28.7 L
Plt Count 146
Sodium 143
Potassium 3.8
Chloride 114 H
Carbon Dioxide 25
BUN 27 H
Creatinine 0.6 L
Glucose 86
Calcium 6.9 L*
Total Bilirubin 0.8
AST 45
ALT 27
Alkaline Phosphatase 113
Vital Signs:
Vital Signs
Temp Pulse Resp BP Pulse Ox
97.8 F 70 16 124/66 98
09/29/24 11:12 09/29/24 11:12 09/29/24 11:12 09/29/24 11:12 09/29/24 11:12
I&O
09/28/24 09/29/24 09/30/24
06:59 06:59 06:59
Intake Total 960 / 960 1080 / 1080
Balance 960 / 960 1080 / 1080
--- NOTE | 2024-09-29 12:43 | PTOTSP ---
Speech Pathology Follow Up
Continues to p/w concerns for aspiration (top down and bottom up) re: chronic dysphagia hx, throat clearing/coughing on trials this date, and extensive reflux history.
Recommend:
1. Trial puree (IDDSI 4), thin liquid via tsps
2. Meds crushed in puree
3. 2-3 dry swallows after each bite/sip; slow rate
4. Strict reflux precautions
5. If overt s/s of aspiration arise, make NPO and re-await speech re-eval
6. [employer] service will continue to follow up re: assess tolerance of diet level and advance diet as able; consider video swallow evaluation to determine safest and least restrictive diet level
[2024-09-29] MEDS: ZITHROMAX INFUSION 250 IV (12:56)
[2024-09-29] MEDS: STERILE WATER FOR INJECTION 10 ML IV (12:56)
[2024-09-29] MEDS: ROCEPHIN 1000 MG IV (12:56)
[2024-09-29] MEDS: MAALOX PLUS 1 TABLET PO (14:36)
[2024-09-29 15:36] VITALS: BP 130/68
[2024-09-29] MEDS: LOVENOX 40 MG SC (17:58)
[2024-09-29 19:26] VITALS: BP 130/75
[2024-09-29] MEDS: LIPITOR 40 MG PO (20:04)
[2024-09-29] MEDS: PROSCAR 5 MG PO ×2 (20:04→20:05)
[2024-09-29] MEDS: CLOZARIL 200 MG PO (20:05)
[2024-09-29 23:11] VITALS: BP 141/70
[2024-09-30 03:20] VITALS: BP 140/73
[2024-09-30 05:20] VITALS: BMI 21.3
[2024-09-30 06:56] LABS: Hematocrit 31.1 % (39.0-52.0); Mean Corp Hgb Conc. 32.2 g/dL (33.0-37.0); Mean Corpuscular Hgb 27.2 pg (27.0-31.0); Mean Corpuscular Volume 84.5 fL (80.0-94.0); Mean Platelet Volume 9.5 fL (7.4-10.4); Platelet Count 208 10^3/uL (130-400); Red Blood Cell Count 3.68 10^6/uL (4.70-6.10); White Blood Cell Count 4.9 10^3/uL (4.8-10.8)
[2024-09-30 07:09] LABS: ALT (SGPT) 33 U/L (0-50); AST (SGOT) 42 U/L (17-59); Albumin 2.7 g/dl (3.5-5.0); Alkaline Phosphatase 126 U/L (38-126); Blood Urea Nitrogen 30 mg/dl (9-20); Calcium 7.8 mg/dl (8.4-10.2); Carbon Dioxide 23 mmol/L (22-30); Chloride 114 mmol/L (98-107); Estimated Creatinine Clearance 115 ml/min; Glucose 100 mg/dl (70-99); Potassium 3.7 mmol/L (3.5-5.1); Sodium 145 mmol/L (135-145); eGFR > 60.00
[2024-09-30 08:00] VITALS: BP 139/73
[2024-09-30 08:35] LABS: % Basophils 0.4 % (0-2); % Immature Granulocytes 0.8 % (0-0.5); % Lymphocytes 21.1 % (20.5-51.1); % Monocytes 7.9 % (1.7-9.3); % Neutrophils 68.8 % (42.2-75.2); Absolute Eosinophils 0.1 10^3/uL (0-0.7); Absolute Monocytes 0.4 10^3/uL (0.1-0.6); Absolute Neutrophils 3.4 10^3/uL (1.4-6.5); Nucleated Red Blood Cells % 0 % (-)
[2024-09-30] MEDS: HIPREX 1 GRAM PO (09:56)
[2024-09-30] MEDS: ASPIR LOW (ENTERIC COATED) 81 MG PO (09:57)
[2024-09-30] MEDS: PROTONIX 40 MG PO (09:57)
[2024-09-30] MEDS: OSCAL CAL 500 500 MG PO (09:57)
[2024-09-30] MEDS: CLOZARIL 150 MG PO (09:57)
[2024-09-30] MEDS: VITAMIN D3 (cholecalciferol) 25 MCG PO (09:57)
[2024-09-30] MEDS: MIRALAX PO (09:57)
[2024-09-30] MEDS: Pyridium 200 MG PO (10:00)
[2024-09-30] MEDS: VIBRAMYCIN 100 MG PO (10:00)
[2024-09-30] MEDS: AUGMENTIN 500 MG/125 MG 1 TABLET PO (10:14)
--- NOTE | 2024-09-30 14:34 | W.PN.HOSP.TC ---
Today's Communication/Plan
-
sister at bedside, states he is doing better
tolerated diet well, there was throat clearing after eating but did well and was not concerned
she has elected to take him home. follow up with speech therapy.
she would like to get an ultrasound of the le to r/o dvt.
3 more days of po antibiotics
completed tamiflu
Assessment / Plan
Assessment / Plan
NAD, thin, on supplemental O2
Scleral Anicteric
MMM
No JVD
CTABL
RRR, S1/S2
Soft, NT, ND, BS+
LLE more swollen then RLE, could be dependent edema
Warm, Dry
Acute hypoxemic respiratory failure along with toxic metabolic encephalopathy in the setting of left basilar pneumonia/influenza
-Tamiflu completed 5/5days
-IV antibiotics with augmentin/doxy x 3days
-Off o2.
#-Chronic developmental delay
#Chronic cognitive impairment/schizoaffective disorder
-Continue clozapine 20 mg at bedtime, 150 mg p.o. daily
#Chronic dysphagia
-Takes meds with yogurt to take a.m. medication 09/27/2024
-Speech evaluated recommended video swallow. However I had a discussion with his sister at bedside who is medical power of divorce attorney. She understands the benefits versus risk. And has accepted the risk that if she provides him with a diet of IDDSI
4 pur�ed with mildly thick liquids like bernard juice that there is a potential that he could aspirate respiratory distress cardiac arrest and . She verbalized understanding's and the magnitude of this decision but believes that this would
likely provide him with more benefit as he has a known history of severe GERD and [place] syndrome and by withholding a diet his GERD will become more severe and this will allow for increased risk of developing Lucy syndrome. The reason why she
wants to do this his mental status waxes and wanes throughout the day and if he was to go for a speech/video swallow it might be at the lower point and at that point he would stay n.p.o. however 1 hour prior to the video swallow 2 hours later after
video swallow his mental status may be better and he might pass video swallow.
-She tells me that she knows him the best for which has agreed as he does live with her, he she does provide him with full-time care. When his baseline status is at the bottom she spoon feeds him however when it is at peak performance he is able to
feed himself.
-Therefore I have gone ahead started him on a pur�ed diet after speaking with his sister about this. If he is able to tolerate diet well today and tomorrow then potentially discharge.
09/30: His sister is comfortable with going home with continued speech therapy at home along with VN/PT/OT
# HTN
157/65
No reported meds
#CAD/OR
cardiac stents times 11/18/2016
-Continue aspirin 81 mg daily, atorvastatin 40 mg at bedtime
#GERD
-Continue omeprazole 40 mg twice daily, calcium carbonate 600 mg daily
#Chronic anemia�normocytic
Hgb 10.7 < 11.9 on 09/24/2024
#Chronic constipation/,Ogilvey syndrome
-Monitor bowel movements
-Last large bowel movement 2 days ago Tuesday, daily bowel movement times past 2 days per sister Carlita who is guardian at bedside she will be staying with him
-As needed lactulose 10 g daily constipation, continue MiraLAX 35 g p.o. twice daily, senna 8.6 mg daily as needed constipation
#Chronic urinary incontinence
#BPH
-Continue Hiprex 1 g p.o. twice daily
-Continue finasteride 5 mg at bedtime
LLE Swelling
-DVT Study ordered
If DVT study is completed and returns by end of today then will plan on discharging today otherwise likely able to DC tomorrow.
Anticipated Discharge: Within 24 hours
Subjective/Interval History
-
Date of Service: September 30, 2024
Seen and examined. No new complaints. No acute overnight events.
has b/l le edema worse in lle then right with some pain the lower extremity
sister at bedside, states he is doing better
tolerated diet well, there was throat clearing after eating but did well and was not concerned
she has elected to take him home. follow up with speech therapy.
she would like to get an ultrasound of the le to r/o dvt.
Objective Data
-
Labs:
Laboratory Results
09/30/24
06:20
WBC 4.9
Hgb 10.0 L
Hct 31.1 L
Plt Count 208 D
Sodium 145
Potassium 3.7
Chloride 114 H
Carbon Dioxide 23
BUN 30 H
Creatinine 0.6 L
Glucose 100 H
Calcium 7.8 L
Total Bilirubin 1.0
AST 42
ALT 33
Alkaline Phosphatase 126
Vital Signs:
Vital Signs
Temp Pulse Resp BP Pulse Ox
98.1 F 76 22 139/73 94
09/30/24 08:00 09/30/24 08:00 09/30/24 08:00 09/30/24 08:00 09/30/24 08:00
I&O
09/29/24 09/30/24 10/01/24
06:59 06:59 06:59
Intake Total 1080 / 1080 480 / 480
Balance 1080 / 1080 480 / 480
--- NOTE | 2024-09-30 14:59 | CM ---
CM reviewed pt with Dr Mullins- ADC today pending DVT study
Bedside meeting with pt and sister
Plan for home with [facility]
IMM verbally reviewed- copy provided
Pt will need transport home
TT/[facility] on-call Blanca Lnik
Confirmed ST will be provided through [facility]
Medical necessity and transport form completed and on chart
VN order on chart as well
compilation clerk with schedule BLS transport
Discharge Disposition- home with [facility] via BLS
--- NOTE | 2024-09-30 16:35 | W.DCSUMMARY ---
Discharge Summary
Discharge Data
Date of Admission: 09/27/24
Date of Discharge: 09/30/24
-
Pending Results: No
Hospital Course
64-year-old male with history of developmental delay and cognitive impairment who lives with his sister
Presented for worsening confusion and occasional jerking movements of his arms with a fever of 103. This was believed to be related to a recent diagnosis of flu a on 09/24/2024. Started on Tamiflu 09/25/2024. Presented back on 09/27/2024 [facility]. Tamiflu was continued oxygen was weaned started on IV antibiotics to cover for superimposed pneumonia. Was able to wean supplemental oxygen to room air. Evaluated by speech therapy recommended n.p.o. and video swallow. Had a lengthy
discussion with his sister who is his caregiver. Tells me that he has good days and bad days his mental status waxes and wanes. Excepted the risk of aspiration and wanted to start a diet of pur�ed. Tolerated well. Noted some bilateral lower
extremity swelling worse on the left than the right. DVT study was obtained and was negative per radiologist Dr. Farfan.
CXR
IMPRESSION:
Cannot exclude small patchy left basilar opacity such as pneumonia.
Discharge Plan
-
Patient Disposition: Home with Home Care
Discharge Diagnosis/Procedures: Flu with superimposed pneumonia
Condition: Good
Diet: As tolerated
Activity: As tolerated
Other Services: VN, PT, OT and ST
Activity Restrictions/Additional Instructions:
Presented for worsening confusion and occasional jerking movements of his arms with a fever of 103. This was believed to be related to a recent diagnosis of flu a on 09/24/2024. Started on Tamiflu 09/25/2024. Presented back on 09/27/2024 [facility]
Hospital. Tamiflu was continued oxygen was weaned started on IV antibiotics to cover for superimposed pneumonia. Was able to wean supplemental oxygen to room air. Evaluated by speech therapy recommended n.p.o. and video swallow. Had a lengthy
discussion with his sister who is his caregiver. Tells me that he has good days and bad days his mental status waxes and wanes. Excepted the risk of aspiration and wanted to start a diet of pur�ed. Tolerated well. Noted some bilateral lower
extremity swelling worse on the left than the right. DVT study was obtained and was negative per radiologist.
CXR
IMPRESSION:
Cannot exclude small patchy left basilar opacity such as pneumonia.
Referrals:
Haritha Ellis MD [Family Provider] -
Prescriptions:
New
amoxicillin-pot clavulanate 500-125 mg Tablet
1 tab PO Q12 3 Days Qty: 6 0RF
doxycycline hyclate 100 mg Capsule
100 mg PO Q12 3 Days Qty: 6 0RF
Continued
nitroglycerin 0.4 MG tablet, sublingual
0.4 mg sublingual [id number] PRN (Reason: chest pain) Qty: 25 0RF
bisacodyl 5 MG tablet,delayed release (DR/EC)
5 mg PO DAILYPRN PRN (Reason: constipation)
finasteride 5 MG tablet
5 mg PO HS
clozapine 100 MG tablet
200 mg PO HS
clozapine 100 MG tablet
150 mg PO DAILY
Patient Comments:
04/02/2024: take with 50mg to equal 150mg in the morning.
aspirin 81 mg Tablet,Delayed Release (Dr/Ec)
81 mg PO DAILY
calcium carbonate 600 mg calcium (1,500 mg) Tablet
600 mg PO DAILY
methenamine hippurate 1 gram Tablet
1 g PO BID
cholecalciferol (vitamin D3) 25 mcg (1,000 unit) Tablet
25 mcg PO DAILY
omeprazole 40 mg Capsule,Delayed Release(Dr/Ec)
40 mg PO BID
sennosides [senna] 8.6 mg Tablet
8.6 mg PO DAILYPRN PRN (Reason: constipation)
phenazopyridine 200 mg Tablet
200 mg PO DAILYPRN PRN (Reason: urinary tract pain)
polyethylene glycol 3350 [Miralax] 17 gram/dose Powder
35 g PO BID
lactulose [Enulose] 10 gram/15 mL Solution
10 g PO DAILYPRN PRN (Reason: constipation)
acetaminophen [Tylenol] 325 mg Tablet
650 mg PO Q4HPRN PRN (Reason: mild pain)
atorvastatin 40 mg tablet
40 mg PO HS
Discontinued
oseltamivir [Tamiflu] 75 mg Capsule
75 mg PO BID
Rx Instructions:
09/27/24: Started 09/25/24
Discharge Orders:
Discharge Patient (As Directed); Ordered 09/30/24
Ordered By: Herman Mullins
Discharge Date and Time
Print Language: [place]
[2024-09-30 16:43] VITALS: BP 148/85
== END 2024-09-30 18:32 | disposition home health service (06) | DRG 871 ==
LOC: 1 ACUTE 14:04
PROVIDERS: Clinical Nurse Specialist Family Health; ADMITTING PHYSICIAN Internal Medicine; ATTENDING PHYSICIAN Hospitalist; EMERGENCY PHYSICIAN Emergency Medicine; FAMILY PHYSICIAN Internal Medicine
DX: A41.9 Sepsis, unspecified organism (principal); J10.00 Influenza due to other identified influenza virus with unspecified type of pneumonia; F25.9 Schizoaffective disorder, unspecified; R13.10 Dysphagia, unspecified; K21.9 Gastro-esophageal reflux disease without esophagitis; K59.81 Ogilvie syndrome; I10 Essential (primary) hypertension; I25.10 Atherosclerotic heart disease of native coronary artery without angina pectoris; N40.1 Benign prostatic hyperplasia with lower urinary tract symptoms; Z95.5 Presence of coronary angioplasty implant and graft; D64.9 Anemia, unspecified; H54.7 Unspecified visual loss; K59.09 Other constipation; Z96.643 Presence of artificial hip joint, bilateral; Z88.2 Allergy status to sulfonamides; Z88.8 Allergy status to other drugs, medicaments and biological substances; Z79.82 Long term (current) use of aspirin; Z79.899 Other long term (current) drug therapy; Z86.16 Personal history of COVID-19; I49.3 Ventricular premature depolarization; L89.152 Pressure ulcer of sacral region, stage 2
CPT/HCPCS: 71046; 80053; 81003; 81015; 83605; 84484; 85025; 87040; 87502; 87811; 92526; 92610; 93005; 93970; 96361; 96365; 96375; 97163; 97167; 99285

== ENCOUNTER → 2024-11-01 06:54 | Outpatient (REF) | payer MEDICARE, MEDICAID, SELFPAY ==
[2024-11-01 07:52] LABS: Ionized Calcium 1.14 mMOL/L (1.15-1.33)
[2024-11-01 09:49] LABS: Intact PTH 94.8 pg/ml (13.6-85.8)
[2024-11-01 10:11] LABS: ALT (SGPT) 20 U/L (0-50); AST (SGOT) 23 U/L (17-59); Albumin 4.2 g/dl (3.5-5.0); Alkaline Phosphatase 120 U/L (38-126); Blood Urea Nitrogen 19 mg/dl (9-20); Calcium 9.5 mg/dl (8.4-10.2); Carbon Dioxide 29 mmol/L (22-30); Chloride 105 mmol/L (98-107); GGTP 25 U/L (15-73); Glucose 112 mg/dl (70-99); Iron 81 ug/dl (49-181); Magnesium 2.1 mg/dl (1.6-2.3); Phosphorus 3.5 mg/dl (2.5-4.5); Potassium 4.4 mmol/L (3.5-5.1); Sodium 143 mmol/L (135-145); Total Bilirubin 1.9 mg/dl (0.2-1.3); Total Protein 6.7 g/dl (6.3-8.2); eGFR > 60.00
[2024-11-01 10:20] LABS: Percent Saturation 20 % (20-50); Total Iron Binding Capacity 403 ug/dl (261-462)
[2024-11-01 10:27] LABS: Vitamin D, 25-OH*** 76.1 ng/mL (30-80)
[2024-11-01 10:41] LABS: TSH Reflex To Free T4 1.38 uIU/ml (0.47-4.68)
[2024-11-01 10:45] LABS: Ferritin 11.4 ng/ml (17.9-464.0)
[2024-11-01 11:17] LABS: Folate > 20.0 ng/ml (2.76-20); Vitamin B12 874 pg/ml (239-931)
[2024-11-04 07:02] LABS: Zinc 82.5 ug/dL (60.0-120.0)
== END ==
LOC: REG 06:54
PROVIDERS: ATTENDING PHYSICIAN Internal Medicine
DX: E21.3 Hyperparathyroidism, unspecified (principal); D64.9 Anemia, unspecified; R63.4 Abnormal weight loss; E55.9 Vitamin D deficiency, unspecified; E50.9 Vitamin A deficiency, unspecified; E58 Dietary calcium deficiency; R79.89 Other specified abnormal findings of blood chemistry; E56.0 Deficiency of vitamin E; E53.8 Deficiency of other specified B group vitamins; E53.1 Pyridoxine deficiency
CPT/HCPCS: 36415; 80053; 82306; 82330; 82607; 82728; 82746; 82977; 83540; 83550; 83735; 83970; 84100; 84207; 84425; 84443; 84446; 84590; 84630

== ENCOUNTER 2024-11-20 17:13 | Inpatient (IN) | payer MEDICARE, MEDICAID, SELFPAY ==
[2024-11-20] VITALS (7 sets, daily range): BP systolic 95–137; BP diastolic 60–98; BMI 21.6; BMI 22.4
--- NOTE | 2024-11-20 15:03 | EDRN ---
Galina Harvey RN attempting blood work at this time on pt.
[2024-11-20 15:04] LABS: COVID-19 Antigen Negative (Negative)
[2024-11-20 15:32] LABS: % Basophils 0.6 % (0-2); % Eosinophils 0.1 % (0-6); % Immature Granulocytes 0.5 % (0-0.5); % Lymphocytes 5.6 % (20.5-51.1); % Monocytes 4.7 % (1.7-9.3); Absolute Basophils 0.1 10^3/uL (0-0.2); Absolute Lymphocytes 0.5 10^3/uL (1.2-3.4); Absolute Monocytes 0.4 10^3/uL (0.1-0.6); Absolute Neutrophils 7.6 10^3/uL (1.4-6.5); Hematocrit 37.7 % (39.0-52.0); Hemoglobin 12.6 g/dL (13.0-18.0); Mean Corp Hgb Conc. 33.4 g/dL (33.0-37.0); Mean Corpuscular Volume 83.8 fL (80.0-94.0); Mean Platelet Volume 9.6 fL (7.4-10.4); Nucleated Red Blood Cells % 0 % (-); Platelet Count 179 10^3/uL (130-400); Red Cell Dist. Width 15.3 % (11.5-14.5); White Blood Cell Count 8.6 10^3/uL (4.8-10.8)
[2024-11-20 15:33] LABS: Lactic Acid 2.1 mmol/L (0.7-2.0)
[2024-11-20 15:34] LABS: ALT (SGPT) 15 U/L (0-50); AST (SGOT) 18 U/L (17-59); Albumin 3.9 g/dl (3.5-5.0); Alkaline Phosphatase 95 U/L (38-126); Blood Urea Nitrogen 28 mg/dl (9-20); Calcium 8.8 mg/dl (8.4-10.2); Carbon Dioxide 24 mmol/L (22-30); Chloride 108 mmol/L (98-107); Estimated Creatinine Clearance 94 ml/min; Glucose 142 mg/dl (70-99); Potassium 3.9 mmol/L (3.5-5.1); Sodium 142 mmol/L (135-145); Total Protein 6.2 g/dl (6.3-8.2); eGFR > 60.00
--- NOTE | 2024-11-20 15:47 | ED.GENMED ---
History of Present Illness
General
Chief Complaint: Breathing Problem
Time Seen by Provider: 11/20/24 14:37
History of Present Illness
History of Present Illness:
64-year-old male with prior history of intellectual delay, hypertension, GERD, schizoaffective disorder presenting to the emergency department for cough and difficulty breathing. Patient arrives with sister who takes care of him at home. Notes
that since last evening, has had a rattling cough and some increased work of breathing. Does note recent hospitalization in September for flu, which was complicated by development of pneumonia. Notes that he just recovered from this infection, went
back to his day program last week. No known sick contacts. Reports no fever at home. Patient is not O2 dependent. Patient is a limited historian given his chronic medical history. No additional history obtained at this time
Past History
Past History
ED Past Medical History: CAD, HTN, CA, Psychiatric (schizoaffective disorder, mental delays) and Other (Constipation, loss of urination control, anemia, impaired vision,); Negative Asthma, Hypercholesterolemia or NIDDM
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
Social History
Tobacco: Non-smoker
Alcohol: None
Drug: None
Personal: Single
Living: with family
Employment: Disabled
Family History
Family History: Other (Noncontributory)
Phy Exam
Physical Exam
Physical Exam:
General: Dry mucous membranes
HEENT: protecting airway
Neck: appears supple
CV: Tachycardic, regular rhythm, no evidence of cyanosis
Resp: Tachypneic with rhonchorous breath sounds bilaterally
Abd: Soft and non-distended, no tenderness to palpation, normal bowel sounds
Extremities: No deformities, no swelling, no erythema
Neuro: alert, no focal neurologic deficit
: deferred
Rectal: deferred
Psych: Normal affect
Skin: Intact
Scores
Heart Failure Risk
Heart Failure Risk Score: Not Applicable
Sepsis
Sepsis Screening
Sepsis Assessment: Sepsis
Sepsis Screening: Lactate >2mmol/L
Sepsis Screen
Sepsis Screen: Sepsis
Date: 11/20/24
Time: 16:20
Course
Orders/Labs/Results
Orders:
Orders
11/20/24 14:19
Electrocardiogram (*1) Urgent
Reason for Study: Chest Pain
Cardiac Monitoring- Treatment ONCE
EKG- Treatment ONCE
IV Insert/Care/Rem.- Treatment PRN
11/20/24 14:32
COVID-19 Antigen Urgent
Source: Nasal Swab
Influenza A+B Rapid Molecular Urgent
KEN Source: Nasal Swab
Specimen Description:
11/20/24 14:44
0.9% Sodium Chloride 1000 ml [Nss] 1,000 ml IV BOLUS
Acetaminophen [Tylenol/Feverall] 650 mg RECTAL NOW STA
11/20/24 15:03
Complete Blood Count/With Diff Urgent
Comprehensive Metabolic Panel Urgent
Lactic Acid Urgent
Blood Culture Urgent
KEN Source: Blood/Venous
Specimen Description:
11/20/24 15:12
Blood Culture Urgent
KEN Source: Blood/Venous
Specimen Description:
11/20/24 15:26
CR Chest - 2 Views Urgent
Comment:
Reason For Exam: sepsis, cough
11/20/24 16:00
Cefepime HCl [Maxipime] 2,000 mg IV NOW STA
Vancomycin [Vancocin] 1,500 mg 0.9% Sodium Chloride 500 ml [Nss] 500 ml IV NOW
Abnormal Lab Results
11/20/24
15:03
RBC 4.50 L 10^6/uL
(4.70-6.10)
Hgb 12.6 L g/dL
(13.0-18.0)
Hct 37.7 L %
(39.0-52.0)
RDW 15.3 H %
(11.5-14.5)
Absolute Neuts (auto) 7.6 H 10^3/uL
(1.4-6.5)
Absolute Lymphs (auto) 0.5 L 10^3/uL
(1.2-3.4)
Neutrophils % 88.5 H %
(42.2-75.2)
Lymphocytes % 5.6 L %
(20.5-51.1)
Chloride 108 H mmol/L
(98-107)
BUN 28 H mg/dl
(9-20)
Glucose 142 H mg/dl
(70-99)
Lactic Acid 2.1 H mmol/L
(0.7-2.0)
Total Bilirubin 2.0 H mg/dl
(0.2-1.3)
Total Protein 6.2 L g/dl
(6.3-8.2)
11/20/24 15:03
11/20/24 15:03
Vital Signs
Initial and Last Documented VS:
Initial Vital Signs
Temp Pulse Resp BP Pulse Ox
100.1 F 113 32 137/65 86
11/20/24 14:21 11/20/24 14:21 11/20/24 14:21 11/20/24 14:21 11/20/24 14:21
Last Documented Vital Signs
Temp Pulse Resp BP Pulse Ox
103.6 F H 114 30 112/83 92
11/20/24 16:02 11/20/24 15:30 11/20/24 15:30 11/20/24 15:12 11/20/24 15:30
MDM/Problems Addressed
MDM/Problems Addressed:
64-year-old male with history of hypertension, intellectual delay, CAD, schizoaffective disorder presenting for cough and increased work of breathing vital signs on arrival significant for fever, tachycardia, hypoxia.
On exam, patient is resting comfortably, however does have a rattling cough, slight tachypnea. O2 improved on supplemental oxygen. Patient's vital signs are meeting SIRS criteria with ultimate sepsis, likely from pulmonary source. Suspect flu
versus COVID versus pneumonia. Plan for laboratory analysis, cultures, lactic acid, chest x-ray imaging, viral swabs. Will start patient on IV fluids and continue to closely monitor
16:00 -viral swabs negative. No leukocytosis, however lactic acid is 2.1, again meeting criteria for sepsis. Chest x-ray shows concern for possible pneumonia. Will start broad-spectrum antibiotics given recent hospitalization. Plan for admission
given respiratory status.
*Critical Care Note
Total Time (30-74mins, 75-104mins- exclusive of procedures): Not Applicable
ED Attending Note
-
Portions of this chart may have been created with voice recognition software.� Occasional wrong word or��sound alike� substitutions may have occurred due to the inherent limitations of voice recognition software.
Discharge Plan
Departure
Patient Disposition: Admit
Date of Disposition: 11/20/24
Time of Disposition: 16:05
Presentation/result/management discussed w/ accepting MD/DO: Hospitalist
Patient with high blood pressure during this ER visit?: No
Condition: Fair
Discharge Problem:
Pneumonia, Hypoxia
Prescriptions:
No Action
nitroglycerin 0.4 MG tablet, sublingual
0.4 mg sublingual [id number] PRN (Reason: chest pain) Qty: 25 0RF
bisacodyl 5 MG tablet,delayed release (DR/EC)
5 mg PO DAILYPRN PRN (Reason: constipation)
finasteride 5 MG tablet
5 mg PO HS
clozapine 100 MG tablet
200 mg PO HS
clozapine 100 MG tablet
150 mg PO DAILY
Patient Comments:
04/02/2024: take with 50mg to equal 150mg in the morning.
aspirin 81 mg Tablet,Delayed Release (Dr/Ec)
81 mg PO DAILY
calcium carbonate 600 mg calcium (1,500 mg) Tablet
600 mg PO DAILY
methenamine hippurate 1 gram Tablet
1 g PO BID
cholecalciferol (vitamin D3) 25 mcg (1,000 unit) Tablet
25 mcg PO DAILY
omeprazole 40 mg Capsule,Delayed Release(Dr/Ec)
40 mg PO BID
sennosides [senna] 8.6 mg Tablet
8.6 mg PO DAILYPRN PRN (Reason: constipation)
phenazopyridine 200 mg Tablet
200 mg PO DAILYPRN PRN (Reason: urinary tract pain)
polyethylene glycol 3350 [Miralax] 17 gram/dose Powder
35 g PO BID
lactulose [Enulose] 10 gram/15 mL Solution
10 g PO DAILYPRN PRN (Reason: constipation)
acetaminophen [Tylenol] 325 mg Tablet
650 mg PO Q4HPRN PRN (Reason: mild pain)
atorvastatin 40 mg tablet
40 mg PO HS
amoxicillin-pot clavulanate 500-125 mg Tablet
1 tab PO Q12 3 Days Qty: 6 0RF
doxycycline hyclate 100 mg Capsule
100 mg PO Q12 3 Days Qty: 6 0RF
Referrals:
Haritha Ellis MD [Family Provider] -
Interventions
Interventions:
*Risk Screen - Suicide Last Done: 11/20/24 15:10
*General Assessment Last Done: 11/20/24 15:10
*Neglect/Abuse Screening Last Done: 11/20/24 15:10
*ED- Fall Risk Assessment Last Done: 11/20/24 15:10
*ED COVID-19 Vaccine History Last Done: 11/20/24 15:10
ED- Cardiac Assessment Last Done: 11/20/24 15:10
ED- Pulmonary Assessment Last Done: 11/20/24 15:10
Discharge Date and Time
Print Language: THAI
[2024-11-20 15:58] LABS: % Neutrophils 88.5 % (42.2-75.2)
[2024-11-20] MEDS: TYLENOL/FEVERALL 650 MG RECTAL (16:05)
[2024-11-20] MEDS: NSS 1000 IV ×2 (16:06→20:48)
[2024-11-20] MEDS: MAXIPIME 2000 MG IV (16:14)
--- NOTE | 2024-11-20 16:15 | EDRN ---
Pharmacist called to mix and sent vancocin 1500 mg.
--- NOTE | 2024-11-20 16:19 | HPS.HSE ---
Family Physician
-
Family Physician: Haritha Ellis
Chief Complaint
-
coug and sob
History of Present Illness
64-year-old male with prior history of intellectual delay, hypertension, GERD, schizoaffective disorder presenting to the emergency department for cough and difficulty breathing since last night. history obtained from sister. he was bring clear
yellow sputum. she was not able to obtain correct pulse ox and temperature. patient not able to provide any meaningful story.
upon arrival he was noted hypoxic, requiring 2l of oxygen. chest x ray with pneumonia. Patient received Tylenol, cefepime, normal saline, vancomycin in ER. Blood culture sent from ER. Admitted for further management
Medical History
Past Medical History
Past Medical History: Reports Other
Additional Past Medical History:
Coronary artery disease, hypertension, ID, affective disorder, constipation, anemia, dyslipidemia, [place] fraction, median Articadent ligament syndrome, osteoporosis, GERD, hyperparathyroidism, ambulatory dysfunction, mental retardation,
sialorrhea, BPH, congenital cataracts,
Past Surgical History: Reports Other
Additional Past Surgical History:
Cardiac stent, right hip replacement, undescended testes as a child, hernia repair, neck surgery, tonsillectomy,
Social History
Tobacco: Non-smoker
Alcohol: None
Drug: None
Living: With Family
Family History
Family History: Not pertinent
Allergies / Home Medications
Allergies reflects when Allergies were last updated in [facility].
Home Medications with original date entered in [facility]
Allergy/Medication List:
Allergies
Allergy/AdvReac Type Severity Reaction Status Date / Time
alendronate sodium Allergy Reflux Verified 09/27/24 15:30
[From Fosamax]
alprazolam [From Xanax] Allergy Unknown Verified 09/24/24 18:27
benztropine Allergy Unknown Verified 09/27/24 15:30
citalopram [From Celexa] Allergy Unknown Verified 09/27/24 15:30
fluphenazine Allergy Unknown Verified 09/27/24 15:30
haloperidol Allergy Unknown Verified 09/27/24 15:30
olanzapine [From Zyprexa] Allergy Unknown Verified 09/24/24 18:27
quetiapine [From Seroquel] Allergy Unknown Verified 09/24/24 18:27
sertraline [From Zoloft] Allergy Unknown Verified 09/24/24 18:27
sulfamethoxazole Allergy Disorientat Verified 09/27/24 15:30
[From Bactrim] ion
trifluoperazine Allergy Unknown Verified 09/27/24 15:30
trimethoprim [From Bactrim] Allergy Unknown Verified 09/24/24 18:27
Home Medications
nitroglycerin 0.4 mg sublingual tablet 0.4 mg sublingual [id number] PRN chest pain #25 tabs 11/25/16
bisacodyl 5 mg tablet,delayed release 5 mg PO DAILYPRN PRN constipation 09/04/21
clozapine 100 mg tablet 150 mg PO DAILY mental health 09/04/21
clozapine 100 mg tablet 200 mg PO HS Mental Health 09/04/21
finasteride 5 mg tablet 5 mg PO HS Urinary issue 09/04/21
aspirin 81 mg tablet,delayed release 81 mg PO DAILY Blood Clot Prevention/Tx 05/24/23
calcium carbonate 600 mg PO DAILY Supplement 05/24/23
cholecalciferol (vitamin D3) 25 mcg (1,000 unit) tablet 25 mcg PO DAILY Supplement 05/24/23
methenamine hippurate 1 gram tablet 1 g PO BID urinary infection prevention 05/24/23
omeprazole 40 mg capsule,delayed release 40 mg PO BID Gastrointestinal Issue 05/24/23
acetaminophen 325 mg tablet (Tylenol) 650 mg PO Q4HPRN PRN mild pain 06/14/23
lactulose 10 gram/15 mL oral solution (Enulose) 10 g PO DAILYPRN PRN constipation 06/14/23
phenazopyridine 200 mg tablet 200 mg PO DAILYPRN PRN urinary tract pain 06/14/23
polyethylene glycol 3350 17 gram/dose oral powder (Miralax) 35 g PO BID Constipation 06/14/23
sennosides 8.6 mg tablet (senna) 8.6 mg PO DAILYPRN PRN constipation 06/14/23
atorvastatin 40 mg tablet 40 mg PO HS 04/02/24
amoxicillin 500 mg-potassium clavulanate 125 mg tablet 1 tab PO Q12 3 days #6 tabs 09/30/24
doxycycline hyclate 100 mg capsule 100 mg PO Q12 3 days #6 caps 09/30/24
Review of Systems
-
Unable to obtain full review of systems at this time due to: Acuity
Constitutional: Reports Fever
Respiratory: Reports Cough and Trouble Breathing
Physical Exam
Vital Signs
Vital Signs
Temp Pulse Resp BP Pulse Ox
103.6 F H 114 30 112/83 92
11/20/24 16:02 11/20/24 15:30 11/20/24 15:30 11/20/24 15:12 11/20/24 15:30
Physical Exam
General: Well Developed, Well Nourished and No Apparent Distress
HEENT: NormoCephalic, Moist mucous membranes and Atraumatic
Respiratory: Rhonchi
Cardiac: S1/S2 and Regular Rhythm; No Murmur or Rub
GI: Soft, Non Tender, Non Distended and Normal Bowel Sounds; No Organomegaly
Rectal: Deferred by Provider
Musculoskeletal: No Clubbing, No Cyanosis and No Edema
Skin: No Rash
Neuro: Nonfocal/grossly intact
Psych: Calm
Laboratory Results
-
11/20/24 15:03
11/20/24 15:03
Laboratory Results
Lactic Acid 2.1 mmol/L (0.7-2.0) H 11/20/24 15:03
Total Bilirubin 2.0 mg/dl (0.2-1.3) H 11/20/24 15:03
AST 18 U/L (17-59) 11/20/24 15:03
ALT 15 U/L (0-50) 11/20/24 15:03
Alkaline Phosphatase 95 U/L (38-126) 11/20/24 15:03
Data Reviewed
-
Diagnostic Radiology: Report Reviewed by me
Lab Data: Labs Reviewed by me
Impression/Plan
-
# Cough/short of breath
# Acute hypoxic respiratory failure concern for pneumonia
- Sepsis as evidenced by lactic 2.1, tachycardia 114, temp 103.6
- COVID-negative, influenza AMB negative
- Chest x-ray with impression of Suspect right basilar pneumonia/pneumonitis. Cannot rule out component of underlying chronic interstitial lung disease.
- Blood culture sent from ER
-Zosyn and vanco continued
-fluids continued
-trend lactic acid
-check sputum
-continue supplemental oxygen to keep sat >95, wean as tolerated
# Anemia of chronic disease
- Hemoglobin stable at 12.6
- No active bleeding
-continue to monitor
#-Chronic developmental delay
#Chronic cognitive impairment/schizoaffective disorder
-Continue clozapine 200 mg at bedtime, 150 mg p.o. daily
#Chronic dysphagia
-purred diet with thin liquids
#CAD/ID
cardiac stents times 11/18/2016
-Continue aspirin 81 mg daily, atorvastatin 40 mg at bedtime
#GERD
-Continue omeprazole 40 mg twice daily, calcium carbonate 600 mg daily
#Chronic constipation/,Ogilvey syndrome
-Monitor bowel movements
- Home meds continued
#Chronic urinary incontinence
#BPH
-Continue finasteride 5 mg at bedtime
# DVT prophylaxis
- Lovenox
# CODE STATUS
- Full code
[2024-11-20] MEDS: VANCOCIN 530 MG IV (16:28)
--- NOTE | 2024-11-20 17:04 | EDRN ---
Dr. Jewell in to see pt and caregiver (sister).
--- NOTE | 2024-11-20 17:04 | W.PN.UPDATE ---
Update Note
Progress Note Update
This is an addendum to the H&P written by Vielka Beauchamp on11/20.� Patient seen examined independently with [employer].
64-year-old male past medical history of chronic developmental delay, chronic dysphagia, hypertension, CAD, GERD, chronic anemia, chronic constipation/Lucy syndrome, chronic urinary continence, BPH presenting with cough and increased work of
breathing and shortness of breath.� Recent admission in September for flu complicated by pneumonia.
Patient clinically septic with fever, tachycardia, tachypnea.� Chest x-ray shows right basilar pneumonia/pneumonitis.
Blood cultures, sputum culture.� IV fluids, vancomycin and Zosyn.
--- NOTE | 2024-11-20 19:55 | PHA.VAN.IN ---
Assessment
- Assessment
Renal Function: Appears similar to baseline
Concomitant Antimicrobials: ZOSYN
- Previous Dosing Experience
Previous Regimen: NONE
AUC Dosing Plan
- Dosing Variables
Dosing Weight (kg): 66.7
Dosing CrCl (ml/min): 98
Vd coefficient (L/kg): 0.7
- Empiric Dosing
Initial / Loading Dose: 1500MG
Maintenance Regimen: 1GM IV Q12H
Estimated AUC (mcg*h/mL): 521
Estimated Peak (mcg*h/mL): 33.3
Estimated Trough (mcg/ml): 13
Estimated Half Life (H): 8.1
Pharmacokinetics Vancomycin I
- -
Patient Age: 64
Patient Sex: Male
Vancomycin Day #: 1
Indication: Pulmonary/Respiratory (SEPSIS)
Requesting Provider: LOLLY
Height / Weight:
Height 5 ft 8 in
Actual Weight 66.678 kg
- Vital Signs / Lab Results
Temp Pulse Resp BP Pulse Ox
99.4 F 87 16 105/66 97
11/20/24 19:00 11/20/24 19:00 11/20/24 19:00 11/20/24 19:00 11/20/24 19:00
Lab Results - Hematology
11/20/24
15:03
WBC 8.6
Lab Results - Chemistry
11/20/24
15:03
BUN 28 H
Creatinine 0.7
Estimated Creat Clear 94
Albumin 3.9
11/20/24
15:03
Lactic Acid 2.1 H
Microbiology Results
11/20/24 14:32 Influenza Types A & B (JOHN) - Final
Nasal Swab Negative for Influenza A & B, NAAT
Negative results must be combined with clinical observations
and patient history.
Nucleic Acid Amplification test (NAAT)performed on the
[employer] platform.
[2024-11-20] MEDS: PROTONIX 40 MG PO (20:44)
[2024-11-20] MEDS: TYLENOL 650 MG PO (20:45)
[2024-11-20] MEDS: MIRALAX 34 GRAMS PO (20:46)
[2024-11-20] MEDS: PROSCAR 5 MG PO (20:47)
[2024-11-20] MEDS: CLOZARIL 200 MG PO (20:47)
[2024-11-20] MEDS: LIPITOR 40 MG PO (20:47)
[2024-11-20] MEDS: LOVENOX 40 MG SC (20:48)
[2024-11-20] MEDS: ZOSYN 100 IV (22:43)
--- NOTE | 2024-11-20 22:54 | PTCARENOTE ---
pt ax2 garbled speech with obvious developmental delays- sister at bedside and is very helpful in all care. pt swallowed pills with applesauce with help of sister encouraging. afebrile bp wnl- 4 liters to maintain sats. lungs are course. incontinent
of urine- diaper policy reviewed. pt is a difficult stick for phlebotomy. sister expressed he had to be stuck many times- several attempts made to draw lactic and sister asked that we stop and try labs in am after pt gets more iv fluids.
[2024-11-21] VITALS (7 sets, daily range): BP systolic 115–150; BP diastolic 64–73; PULSE 89; O2SAT 95; BMI 22.4
[2024-11-21] MEDS: ANTIFUNGAL CLEAR 1 APPLIC TOPICAL ×3 (00:09→20:42)
[2024-11-21] MEDS: ZOSYN 100 IV ×4 (03:08→22:00)
[2024-11-21] MEDS: VANCOCIN 200 IV ×2 (05:22→18:27)
[2024-11-21] MEDS: NSS 1000 IV ×2 (05:22→20:50)
[2024-11-21 08:24] LABS: Hematocrit 31.9 % (39.0-52.0); Hemoglobin 10.5 g/dL (13.0-18.0); Mean Corp Hgb Conc. 32.9 g/dL (33.0-37.0); Mean Corpuscular Volume 85.1 fL (80.0-94.0); Mean Platelet Volume 9.7 fL (7.4-10.4); Platelet Count 152 10^3/uL (130-400); Red Blood Cell Count 3.75 10^6/uL (4.70-6.10); Red Cell Dist. Width 15.6 % (11.5-14.5); White Blood Cell Count 9.5 10^3/uL (4.8-10.8)
--- NOTE | 2024-11-21 08:41 | PHA.VAN.FU ---
Vancomycin Assessment / Plan
- Assessment
Renal Function: No New Labs Today
WBC's are: WNL
Concomitant Antimicrobials: piperacillin/tazobactam
- Dosing Plan
Continue: Vanc 1000mg Q12H
- Monitoring Plan
No level(s) ordered at this time: consider levels in next few days
- Follow Up
Pharmacy will continue to follow.
Vancomycin Follow UP
- -
Patient Age: 64
Patient Sex: Male
Vancomycin Day #: 2
Indication: Pulmonary/Respiratory
Requesting Provider: Abel Beauchamp
Pertinent Antimicrobial Allergies:
smox/tmp - disorientation
Height / Weight:
Height 5 ft 8 in
Actual Weight 66.678 kg
- Vital Signs / Lab Results
Temp Pulse Resp BP Pulse Ox
99.6 F 89 20 115/68 95
11/21/24 07:30 11/21/24 07:30 11/21/24 07:30 11/21/24 07:30 11/21/24 07:30
Lab Results - Hematology
11/20/24 11/21/24
15:03 08:05
WBC 8.6 9.5
Lab Results - Chemistry
11/20/24
15:03
BUN 28 H
Creatinine 0.7
Estimated Creat Clear 94
Albumin 3.9
11/20/24 11/20/24 11/20/24
15:03 19:07 23:07
Lactic Acid 2.1 H Cancelled Cancelled
Microbiology Results
11/20/24 14:32 Influenza Types A & B (JOHN) - Final
Nasal Swab Negative for Influenza A & B, NAAT
Negative results must be combined with clinical observations
and patient history.
Nucleic Acid Amplification test (NAAT)performed on the
[employer] platform.
[2024-11-21 08:47] LABS: Lactic Acid 0.9 mmol/L (0.7-2.0)
[2024-11-21] MEDS: CLOZARIL 150 MG PO (09:30)
[2024-11-21] MEDS: PROTONIX 40 MG PO (09:31)
[2024-11-21] MEDS: ASPIR LOW (ENTERIC COATED) 81 MG PO (09:31)
[2024-11-21] MEDS: VITAMIN D3 (cholecalciferol) 25 MCG PO (09:31)
[2024-11-21] MEDS: OSCAL CAL 500 500 MG PO (09:31)
[2024-11-21] MEDS: MIRALAX 34 GRAMS PO (09:32)
[2024-11-21] MEDS: SENOKOT 8.6 MG PO (09:35)
[2024-11-21] MEDS: DULCOLAX 5 MG PO (09:37)
[2024-11-21] MEDS: Pyridium 200 MG PO (09:45)
--- NOTE | 2024-11-21 11:47 | CM ---
CM following re: discharge planning.
Reviewed pt's chart, met with pt and pt's sister at bedside.
Pt is a 64 year old male, admitted with primary dx of Cough/short of breath. Acute hypoxic respiratory failure concern for pneumonia. PMH includes: intellectual delay, hypertension, GERD, schizoaffective disorder
Per patient sister she and the pt live in a 1 story home, no steps. Patient has had [facility] in the past for PT/OT and has a transport chair, walker, braces and hospital bed. Patient attends adult day care 5 days weekly at [facility] in [place]. Pt's
sister stated she feels that her brother is getting respiratory infections at the adult day care center and she will call pt's vocational case manager from [facility] on [facility] to discuss a possibility to have caregiver services at home instead of going to adult
day care center. Pt's sister stated she likes adult day care center programs she just worries about pt getting respiratory infections there. Pt's sister stated that a plan is for pt to return back home with [facility] services.
A referral to [facility] made.
PCP: Haritha Wagner
Pharmacy: [facility]
D/C plan: home with [facility] and sister's support with resumptions of attending day care center vs caregiver services at home.
CM will follow with discharge plan updates as hospitalization progresses
--- NOTE | 2024-11-21 12:07 | PTOTSP ---
Speech Therapy Evaluation:
Pt with known hx of mild-moderate oral and moderate dysphagia s/p VSE in September 2022. Pt also with baseline siaorrhea, resulting in poor secretion management with anterior spillage of saliva at baseline. On this date, pt demonstrated signs concerning
for at least moderate oropharyngeal dysphagia. Pt demonstrated significant coughing following all liquid trials. CXR currently with R PNA.
Recommend:
1. NPO
2. Essential medications crushed in puree
3. VSE to further assess oropharyngeal swallow function and determine safest least restrictive diet level
4. DEFENSE TRAVEL ADMINISTRATOR to follow pending results of VSE
--- NOTE | 2024-11-21 12:55 | W.PN.HOSP.TC ---
Today's Communication/Plan
-
see A/P
Assessment / Plan
Assessment / Plan
64-year-old male past medical history of chronic developmental delay, chronic dysphagia, hypertension, CAD, GERD, chronic anemia, chronic constipation/Sophia syndrome, chronic urinary continence, BPH; p/w cough, increased work of breathing and
shortness of breath.�
Recent admission in September for flu complicated by pneumonia.
A/P:
# Sepsis POA
Chest x-ray showed right basilar pneumonia/pneumonitis.
Follow Blood cultures, one set positive, follow S/S
Check repeat blood cultures
Check MRSA screen
Flu/COVID negative this admission
Cont IV fluids,
Cover with vancomycin and Zosyn.
Check VSE per [facility]
# Cough/short of breath
# Acute hypoxic respiratory failure
# concern for aspiration pneumonia
# Resolved mild lactic acidosis
Placed on 4L NC, wean O2 as tolerated. Pt not on home O2.
Check VSE per [facility] eval
# Chronic developmental delay
# Chronic cognitive impairment/schizoaffective disorder
# Chronic dysphagia
SIZE CUTTER on purred diet with thin liquids
Continue home clozapine 200 mg at bedtime, 150 mg p.o. daily
NPO for now with IVF support
# Anemia of chronic disease
Drop in Hemoglobin likely dilutional effect from IVF
No active bleeding
continue to monitor
# CAD
# cardiac stents times 11/18/2016
Continue aspirin 81 mg daily, atorvastatin 40 mg at bedtime
# GERD
Continue omeprazole 40 mg twice daily, calcium carbonate 600 mg daily
# Chronic constipation/ Ogilvey syndrome
Monitor bowel movements
Home meds continued
Dulcolax NE added
# Chronic urinary incontinence
# BPH
Continue finasteride 5 mg at bedtime
DVT prophylaxis: Lovenox
CODE STATUS: Full code
DW RN
DW sister/nurse wound care at bedside
total time spent 51 min
Anticipated Discharge: 24 - 48 hours
Subjective/Interval History
-
Date of Service: November 21, 2024
Objective Data
-
Labs:
Laboratory Results
11/21/24
08:05
WBC 9.5
Hgb 10.5 L
Hct 31.9 L
Plt Count 152
Vital Signs:
Vital Signs
Temp Pulse Resp BP Pulse Ox
37.9 C 105 20 150/73 97
11/21/24 12:00 11/21/24 12:00 11/21/24 12:00 11/21/24 12:00 11/21/24 12:00
I&O
11/20/24 11/21/24 11/22/24
06:59 06:59 06:59
Intake Total 1520 / 1520
Balance 1520 / 1520
Review of Systems
-
Unable to obtain full review of systems at this time due to: Acuity and Patient Non-verbal
Physical Exam
-
General: Respiratory Distress (mild) and Appears Chronically Ill
HEENT: Normocephalic, Atraumatic and Oxygen (4L NC)
Respiratory: Rhonchi; Negative Accessory Resp Muscle Use
Cardiac: Regular Rhythm and S1/S2
GI: Soft
Genito-urinary: No Costovertebral Tender
Neuro: Awake
Psych: Calm
Data Reviewed
-
Diagnostic Radiology: Image personally visualized and interpreted and Report Reviewed by me
Labs: Labs Reviewed by me
--- NOTE | 2024-11-21 13:03 | VNURNOTE ---
Home Health Liaison spoke with patient's sister Carlita to discuss [facility] nurse/therapy, visits, schedule and homebound status. She is familiar with [facility] and agreeable and understands that visits at home will be 2-3 x per week to assess and teach medical
management. She is aware that adult daycare will be on hold while [facility] services are active. [facility] contact information provided to sister. She is aware that [facility] will contact them for start of care in 1-2 days after discharge from
. Patient currently on . Will watch if new home 02 needs.
[facility] referral completed in [facility].
[2024-11-21] MEDS: DULCOLAX 10 MG RECTAL ×2 (15:00→20:57)
--- NOTE | 2024-11-21 16:15 | PTOTSP ---
Speech Therapy Video Swallow Exam (VSE):
Patient presents with moderate oral and severe pharyngeal stage of swallowing. There was aspiration across all consistencies including thin liquids, mildly thick liquids, moderately thick liquids, and puree. Aspiration was mostly silent. Cued and
spontaneous cough ineffective at clearing aspirated materials. Suspect patient�s baseline of mild-moderate oral and moderate pharyngeal dysphagia is currently exacerbated by acute medical illness including PNA, Acute Hypoxic Respiratory Failure
(AHRF), sepsis, and lethargy. Please see patient care note for full details of aspiration and swallowing physiology.
Recommend:
1.NPO
2.Medications non-oral
3.Oral care 4x/day with suctioning as needed
4.Not appropriate for Aspiration Risk Hydration Protocol (ARHP) this time
5.RN and MD notified of results/recommendations. SILK PRESSER to continue to follow
[2024-11-21] MEDS: TYLENOL/FEVERALL 325 MG RECTAL (17:37)
[2024-11-21] MEDS: LOVENOX 40 MG SC (18:28)
[2024-11-21] MEDS: MIRALAX PO (20:38)
[2024-11-21] MEDS: PROSCAR PO (20:38)
[2024-11-21] MEDS: PROTONIX PO (20:38)
[2024-11-21] MEDS: LIPITOR PO (20:38)
[2024-11-21] MEDS: CLOZARIL PO (20:39)
[2024-11-21] MEDS: NSS (PRESERVATIVE FREE) 10 ML IV (20:48)
[2024-11-21] MEDS: PROTONIX IV 20 MG IV (20:48)
[2024-11-22] MEDS: TYLENOL/FEVERALL 325 MG RECTAL ×2 (00:39→19:25)
--- NOTE | 2024-11-22 03:19 | DOWNTIME ---
There was a [employer] Client Signal Supervisor Downtime on 11/22/2024 from 0200 to 11/23/2023 at 0318 .
[2024-11-22] MEDS: ZOSYN 100 IV ×2 (03:24→09:10)
[2024-11-22 03:29] VITALS: BP 116/60
[2024-11-22] MEDS: VANCOCIN 200 IV ×2 (05:13→17:59)
[2024-11-22 06:40] LABS: Blood Urea Nitrogen 22 mg/dl (9-20); Calcium 7.5 mg/dl (8.4-10.2); Carbon Dioxide 23 mmol/L (22-30); Chloride 113 mmol/L (98-107); Estimated Creatinine Clearance 76 ml/min; Glucose 122 mg/dl (70-99); Magnesium 1.9 mg/dl (1.6-2.3); Potassium 3.4 mmol/L (3.5-5.1); Sodium 143 mmol/L (135-145); eGFR > 60.00
[2024-11-22 06:45] LABS: Procalcitonin 4.31 ng/ml (0.0-0.25)
[2024-11-22 06:54] LABS: Hematocrit 32.9 % (39.0-52.0); Hemoglobin 10.5 g/dL (13.0-18.0); Mean Corp Hgb Conc. 31.9 g/dL (33.0-37.0); Mean Corpuscular Hgb 27.1 pg (27.0-31.0); Mean Platelet Volume 9.6 fL (7.4-10.4); Platelet Count 142 10^3/uL (130-400); Red Blood Cell Count 3.87 10^6/uL (4.70-6.10); Red Cell Dist. Width 15.5 % (11.5-14.5); White Blood Cell Count 7.3 10^3/uL (4.8-10.8)
[2024-11-22 07:15] VITALS: BP 108/66
[2024-11-22 08:09] LABS: Absolute Neutrophils -Man Diff 6.1 10^3/uL (1.4-6.5); Band Neutrophils 13 % (0-3); Lymphocytes 12 % (20-51); Monocytes 4 % (2-9); Segmented Neutrophils 71 % (42-75)
[2024-11-22 08:10] LABS: Hypochromasia 1+; Normal RBC Morphology No; Ovalocytes 1+; Platelets Checked Yes; Total Cells Counted 100
--- NOTE | 2024-11-22 08:53 | PHA.VAN.FU ---
Vancomycin Assessment / Plan
- Assessment
Renal Function: Stable
WBC's are: WNL
Concomitant Antimicrobials: piperacillin/tazobactam
- Dosing Plan
Continue: Vanc 1000mg Q12H
- Monitoring Plan
Peak Level: 11/22 21:00
Trough Level: 11/23 05:30
Monitoring Comments: levels to be drawn after 4th maintenance dose
- Follow Up
Pharmacy will continue to follow.
Vancomycin Follow UP
- -
Patient Age: 64
Patient Sex: Male
Vancomycin Day #: 3
Indication: Pulmonary/Respiratory
Requesting Provider: Abel Beauchamp
Pertinent Antimicrobial Allergies:
smx/tmp - disorientation
Height / Weight:
Height 5 ft 8 in
Actual Weight 66.678 kg
- Vital Signs / Lab Results
Temp Pulse Resp BP Pulse Ox
99.0 F 109 18 108/66 94
11/22/24 07:15 11/22/24 07:15 11/22/24 07:15 11/22/24 07:15 11/22/24 07:15
Lab Results - Hematology
11/20/24 11/21/24 11/22/24
15:03 08:05 05:31
WBC 8.6 9.5 7.3
Band Neutrophils 13 H
Lab Results - Chemistry
11/20/24 11/22/24
15:03 05:31
BUN 28 H 22 H
Creatinine 0.7 0.9
Estimated Creat Clear 94 76
Albumin 3.9
11/20/24 11/20/24 11/20/24
15:03 19:07 23:07
Lactic Acid 2.1 H Cancelled Cancelled
11/21/24
08:05
Lactic Acid 0.9
Microbiology Results
11/20/24 15:03 Blood Culture - Preliminary
Blood/Venous Positive culture in progress
Gram Stain - Preliminary
11/20/24 15:12 Blood Culture - Preliminary
Blood/Venous Positive culture in progress
Gram Stain - Preliminary
11/20/24 14:32 Influenza Types A & B (JOHN) - Final
Nasal Swab Negative for Influenza A & B, NAAT
Negative results must be combined with clinical observations
and patient history.
Nucleic Acid Amplification test (NAAT)performed on the
[employer] platform.
[2024-11-22] MEDS: ASPIR LOW (ENTERIC COATED) 81 MG PO (09:09)
[2024-11-22] MEDS: PROTONIX 40 MG PO (09:09)
[2024-11-22] MEDS: CLOZARIL 150 MG PO (09:09)
[2024-11-22] MEDS: OSCAL CAL 500 500 MG PO (09:10)
[2024-11-22] MEDS: VITAMIN D3 (cholecalciferol) 25 MCG PO (09:10)
[2024-11-22] MEDS: MIRALAX 34 GRAMS PO (09:11)
[2024-11-22] MEDS: ANTIFUNGAL CLEAR 1 APPLIC TOPICAL ×2 (09:12→21:00)
--- NOTE | 2024-11-22 11:33 | CM ---
Reviewed the chart notes. VSE - AIRWAY ASPIRATION with all barium consistencies. PT recommends home health. CM continues to be available to patient/family and is monitoring medical plan for needs at discharge.
Plan: Discharge plans will depend on the patient's progress and if patient needs feeding tube.
[2024-11-22 11:35] VITALS: BP 129/72
[2024-11-22] MEDS: NSS 1000 IV (12:10)
--- NOTE | 2024-11-22 13:55 | W.PN.HOSP.TC ---
Today's Communication/Plan
-
see A/P
Assessment / Plan
Assessment / Plan
64-year-old male past medical history of chronic developmental delay, chronic dysphagia, hypertension, CAD, GERD, chronic anemia, chronic constipation/Lucy syndrome, chronic urinary continence, BPH; p/w cough, increased work of breathing and
shortness of breath.�
Recent admission in September for flu complicated by pneumonia.
A/P:
# Sepsis POA
# bacteremia with CONS
Chest x-ray showed right basilar pneumonia/pneumonitis.
Blood cultures x2 set from admission positive for CONS
Follow repeat blood cultures x2 from 11/21
Follow MRSA screen
Check echo
Flu/COVID negative this admission
Cont vancomycin and Zosyn.
ID CS
# Cough/short of breath
# Acute hypoxic respiratory failure
# concern for aspiration pneumonia
# Resolved mild lactic acidosis
Placed on 4L NC, wean O2 as tolerated. Pt not on home O2.
VSE noted aspiration across all consistencies, SPL recc NPO.
daily SPL and repeat VSE ordered for 11/26 prior to restarting diet.
Sister/ POJessie has been informed about risk of aspiration. She verbalized understanding and accepts risk.
Limit PO meds
# Chronic developmental delay
# Chronic cognitive impairment/schizoaffective disorder
# Chronic dysphagia
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
Continue home clozapine 200 mg at bedtime, 150 mg p.o. daily
NPO for now with IVF support
# Anemia of chronic disease
Drop in Hemoglobin likely dilutional effect from IVF
No active bleeding
continue to monitor
# CAD
# cardiac stents times 11/18/2016
Continue aspirin 81 mg daily, atorvastatin 40 mg at bedtime
# GERD
Continue omeprazole 40 mg twice daily, calcium carbonate 600 mg daily
# Chronic constipation/ Ogilvey syndrome
Monitor bowel movements
Home meds continued
Dulcolax [place] added
# Chronic urinary incontinence
# BPH
Continue finasteride 5 mg at bedtime
DVT prophylaxis: Lovenox
CODE STATUS: Full code
DW RN
DW sister/transitional care liaison at bedside
total time spent 51 min
Anticipated Discharge: > 48 hours
Subjective/Interval History
-
Date of Service: November 22, 2024
Objective Data
-
Labs:
Laboratory Results
11/22/24
05:31
WBC 7.3
Hgb 10.5 L
Hct 32.9 L
Plt Count 142
Sodium 143
Potassium 3.4 L
Chloride 113 H
Carbon Dioxide 23
BUN 22 H
Creatinine 0.9
Glucose 122 H
Calcium 7.5 L
Vital Signs:
Vital Signs
Temp Pulse Resp BP Pulse Ox
37.2 C 109 18 108/66 94
11/22/24 07:15 11/22/24 07:15 11/22/24 07:15 11/22/24 07:15 11/22/24 07:15
I&O
11/21/24 11/22/24 11/23/24
06:59 06:59 06:59
Intake Total 1520 / 1520 1260 / 1260
Balance 1520 / 1520 1260 / 1260
Review of Systems
-
Unable to obtain full review of systems at this time due to: Acuity and Patient Non-verbal
Physical Exam
-
General: Respiratory Distress (mild) and Appears Chronically Ill
HEENT: Normocephalic, Atraumatic and Oxygen (4L NC)
Respiratory: Rhonchi; Negative Accessory Resp Muscle Use
Cardiac: Regular Rhythm and S1/S2
GI: Soft
Genito-urinary: No Costovertebral Tender
Neuro: Awake
Psych: Calm
Data Reviewed
-
Diagnostic Radiology: Image personally visualized and interpreted and Report Reviewed by me
Labs: Labs Reviewed by me
[2024-11-22 15:35] VITALS: BP 146/65
--- NOTE | 2024-11-22 16:07 | CON.ID ---
Consultation
-
Date/Time Consultation Requested: 11/18/2024 0734
Date/Time Consultation Performed: 11/22/2024 1603
Requesting Provider: Dr. Perez
Performing Provider: Dr. Ball
Reason for Consultation: Right-sided infiltrate; positive blood cultures
Chief Complaint / Past History
History of Present Illness
Dalton Bernard is a 64-year-old male with a significant past medical history of intellectual delay, HTN and schizoaffective disorder being evaluated today request of Dr. Perez in regards to pneumonia and positive blood cultures. History is obtained
from chart review, along with history obtained from the patient's sister who was at the bedside.
The patient presents to [facility] on 11/20/2024 for evaluation of cough and difficulty breathing. Symptoms evidently began approximately 12 to 24 hours earlier with a noted rattling cough and increased work of breathing. The patient has a
history of hospitalization in September, during which time he was diagnosed with the flu and also was diagnosed with pneumonia. He ultimately was discharged, and seemed to get back to his baseline for 2 to 3 weeks then approximate 4 days ago he
appeared to grow more congested, and his sister noted rhinorrhea. Thereafter, his mentation declined and he was brought back to the hospital for further evaluation. He has a history of aspiration pneumonia in the past.
At admission he was found to be febrile. Blood cultures obtained at the time of admission are now positive for gram-positive cocci in clusters. Infectious Diseases is asked to comment upon further antimicrobial management.
At present, he has a cough, but cannot produce any sputum.
Past History
Additional Past Medical History:
CAD; Hx [place]
HTN
Schizoaffective disorder
Intellectual disability
GERD
Additional Past Surgical History:
PCI with stenting
Bilateral hip replacement
Allergy History:
alendronate sodium [From Fosamax] Allergy (Verified 09/27/24 15:30)
Reflux
alprazolam [From Xanax] Allergy (Verified 09/24/24 18:27)
Unknown
benztropine Allergy (Verified 09/27/24 15:30)
Unknown
citalopram [From Celexa] Allergy (Verified 09/27/24 15:30)
Unknown
fluphenazine Allergy (Verified 09/27/24 15:30)
Unknown
haloperidol Allergy (Verified 09/27/24 15:30)
Unknown
olanzapine [From Zyprexa] Allergy (Verified 09/24/24 18:27)
Unknown
quetiapine [From Seroquel] Allergy (Verified 09/24/24 18:27)
Unknown
sertraline [From Zoloft] Allergy (Verified 09/24/24 18:27)
Unknown
sulfamethoxazole [From Bactrim] Allergy (Verified 09/27/24 15:30)
Disorientation
trifluoperazine Allergy (Verified 09/27/24 15:30)
Unknown
trimethoprim [From Bactrim] Allergy (Verified 09/24/24 18:27)
Unknown
Medications Reviewed: Yes
Current Antibiotics:
Vancomycin
Zosyn 4.5 g IV every 6 hours
Social History
Tobacco: Non-Smoker
Alcohol: None
Drug: None
Personal: Single
Living: With Family
Employment: Not Employed
Family History
Family History: Not Pertinent
Review of Systems
Vital Signs
Temp Pulse Resp BP Pulse Ox
99.0 F 109 18 108/66 94
11/22/24 07:15 11/22/24 07:15 11/22/24 07:15 11/22/24 07:15 11/22/24 07:15
Physical Exam
Physical Exam
Constitutional: Chronically Ill and Non-toxic
Head: Normocephalic
Eyes: Pupils Equal, Pupils Round and No Conjunctival Hemorrhage
Cardiovascular: S1/S2; Negative S3/S4 or Murmur
Pulmonary: Rhonchi (Scattered rhonchi)
Gastrointestinal: Soft, Non Tender, Non Distended, Normal Bowel Sounds, No Rebound and No Guarding
Skin: Warm and Dry; Negative Rash or Jaundice
Neurological: Awake and Alert; Negative Meningeal Signs
Psychological: Calm
Lab / Diagnostic Study Results
11/22/24 05:31
11/22/24 05:31
Abs Immat Gran (auto) 0.0 10^3/uL (0-0.05) 11/20/24 15:03
Absolute Neuts (auto) 7.6 10^3/uL (1.4-6.5) H 11/20/24 15:03
Absolute Lymphs (auto) 0.5 10^3/uL (1.2-3.4) L 11/20/24 15:03
Absolute Monos (auto) 0.4 10^3/uL (0.1-0.6) 11/20/24 15:03
Absolute Basos (auto) 0.1 10^3/uL (0-0.2) 11/20/24 15:03
Total Counted 100 11/22/24 05:31
Immature Gran % 0.5 % (0-0.5) 11/20/24 15:03
Neutrophils % 88.5 % (42.2-75.2) H 11/20/24 15:03
Lymphocytes % 5.6 % (20.5-51.1) L 11/20/24 15:03
Monocytes % 4.7 % (1.7-9.3) 11/20/24 15:03
Eosinophils % 0.1 % (0-6) 11/20/24 15:03
Basophils % 0.6 % (0-2) 11/20/24 15:03
Abs Neuts (Manual) 6.1 10^3/uL (1.4-6.5) 11/22/24 05:31
Segmented Neutrophils 71 % (42-75) 11/22/24 05:31
Band Neutrophils 13 % (0-3) H 11/22/24 05:31
Lymphocytes (Manual) 12 % (20-51) L 11/22/24 05:31
Lactic Acid 0.9 mmol/L (0.7-2.0) 11/21/24 08:05
Procalcitonin 4.31 ng/ml (0.0-0.25) H* 11/22/24 05:31
Microbiology Results
Micro:
11/21/24 13:10 Blood Culture - Preliminary
Blood/Venous No Growth in 24 hours- Final report to follow
11/21/24 12:12 Blood Culture - Preliminary
Blood/Venous No Growth in 24 hours- Final report to follow
11/20/24 15:03 Blood Culture - Preliminary
Blood/Venous Coagulase neg. staphylococcus
Gram Stain - Preliminary
11/20/24 15:12 Blood Culture - Preliminary
Blood/Venous Coagulase neg. staphylococcus
Gram Stain - Preliminary
11/21/24 19:54 MRSA Screen - Pending
Nose
11/20/24 14:32 Influenza Types A & B (JOHN) - Final
Nasal Swab Negative for Influenza A & B, NAAT
Negative results must be combined with clinical observations
and patient history.
Nucleic Acid Amplification test (NAAT)performed on the
[employer] platform.
Imaging:
11/20/2024 CXR (2 view): Mild patchy interstitial and airspace opacities at the right base. No significant pleural effusion. No visualized pneumothorax. Cardiac and mediastinal contours are unremarkable. Please see full dictation for additional
detail.
Assessment / Plan
Fever
Bacteremia with CoNS
- Suspect contaminant
RLL infiltrate
- Suspect aspiration pneumonia
Reported encephalopathy
CAD; Hx DE
HTN
Schizoaffective disorder) issues
Intellectual disability
Recommendations:
Await final ID of blood culture isolates; if other than staph lugdunensis, will discontinue further vancomycin.
Continue with Zosyn, although decreased to 3.375 g IV every 6 hours.
Strict aspiration precautions. May consider swallowing study.
Monitor white count and temperature curve.
Further recommendations as additional data is returned.
[2024-11-22] MEDS: ZOSYN 50 IV ×2 (17:58→23:13)
[2024-11-22] MEDS: LOVENOX 40 MG SC (17:59)
[2024-11-22] MEDS: ZOSYN IV (18:03)
[2024-11-22 19:30] VITALS: BP 140/56
[2024-11-22] MEDS: MIRALAX PO (21:02)
[2024-11-22] MEDS: CLOZARIL 200 MG PO (21:04)
[2024-11-22] MEDS: PROSCAR 5 MG PO (21:06)
[2024-11-22 23:24] VITALS: BP 118/53
[2024-11-22 23:28] LABS: Vancomycin Peak 22.5 ug/ml (18-26)
[2024-11-23] VITALS (7 sets, daily range): BP systolic 105–159; BP diastolic 64–76; PULSE 93; O2SAT 99; BMI 21.5
[2024-11-23] MEDS: TYLENOL/FEVERALL 325 MG RECTAL (05:05)
[2024-11-23] MEDS: ZOSYN 50 IV ×3 (05:05→18:23)
[2024-11-23 05:45] LABS: Hematocrit 31.1 % (39.0-52.0); Hemoglobin 10.2 g/dL (13.0-18.0); Mean Corp Hgb Conc. 32.8 g/dL (33.0-37.0); Mean Corpuscular Hgb 27.9 pg (27.0-31.0); Mean Corpuscular Volume 85.2 fL (80.0-94.0); Mean Platelet Volume 9.8 fL (7.4-10.4); Platelet Count 157 10^3/uL (130-400); Red Blood Cell Count 3.65 10^6/uL (4.70-6.10); Red Cell Dist. Width 15.6 % (11.5-14.5); White Blood Cell Count 7.1 10^3/uL (4.8-10.8)
[2024-11-23 05:54] LABS: Blood Urea Nitrogen 27 mg/dl (9-20); Calcium 7.3 mg/dl (8.4-10.2); Carbon Dioxide 24 mmol/L (22-30); Chloride 115 mmol/L (98-107); Estimated Creatinine Clearance 69 ml/min; Glucose 104 mg/dl (70-99); Magnesium 2.1 mg/dl (1.6-2.3); Potassium 3.1 mmol/L (3.5-5.1); Sodium 149 mmol/L (135-145); eGFR > 60.00
[2024-11-23 06:00] LABS: Vancomycin Trough 14.2 ug/ml (5-20)
[2024-11-23] MEDS: VANCOCIN 200 IV (06:24)
[2024-11-23] MEDS: NSS 1000 IV (06:27)
[2024-11-23 07:29] LABS: % Basophils 0.7 % (0-2); % Eosinophils 1.1 % (0-6); % Immature Granulocytes 1.8 % (0-0.5); % Lymphocytes 10.3 % (20.5-51.1); % Monocytes 7.5 % (1.7-9.3); % Neutrophils 78.6 % (42.2-75.2); Absolute Basophils 0.1 10^3/uL (0-0.2); Absolute Eosinophils 0.1 10^3/uL (0-0.7); Absolute Immature Granulocytes 0.1 10^3/uL (0-0.05); Absolute Lymphocytes 0.7 10^3/uL (1.2-3.4); Absolute Monocytes 0.5 10^3/uL (0.1-0.6); Absolute Neutrophils 5.5 10^3/uL (1.4-6.5); Nucleated Red Blood Cells % 0 % (-)
--- NOTE | 2024-11-23 08:04 | PHA.VAN.FU ---
Vancomycin Assessment / Plan
- Assessment
Renal Function: Stable (1.0)
WBC's are: WNL (7.1)
In the past 24 hrs, patient has been: Febrile (102.3)
Concomitant Antimicrobials: Piperacillin/Tazobactam
- Assessment - Therapeutic Drug Monitoring
Extrapolated Cmax (mcg/mL): 22.5
Peak level was drawn: More than 3 hours after previous dose (~3.9H after end of infusion)
Extrapolated Cmin (mcg/mL): 14.2
Trough Drawn: Appropriately
Calculated AUC (mcg*h/mL): 499
Calculated ke: 0.0708
Calculated half life (H): 9.8
Calculated Vd (L): 56.6
Calculated Vanc CL (ml/min): 66.79
Peak was drawn outside of the 1-3H window; Calculated PK parameters with the trough of 14.2
- Dosing Plan
Continue: Vanco 1000mg Q12H
- Monitoring Plan
Level(s) appropriate: Recheck trough at minimum of weekly intervals, Repeat sooner for changes in renal function or clinical status
Next Level Due (Date): ~11/29
- Follow Up
Pharmacy will continue to follow.
Vancomycin Follow UP
- -
Patient Age: 64
Patient Sex: Male
Vancomycin Day #: 4
Indication: Pulmonary/Respiratory
Requesting Provider: Abel Beauchamp
Pertinent Antimicrobial Allergies:
smx/tmp - disorientation
Height / Weight:
Height 5 ft 8 in
Actual Weight 66.678 kg
- Vital Signs / Lab Results
Temp Pulse Resp BP Pulse Ox
98.1 F 89 18 113/64 99
11/23/24 07:10 11/23/24 07:10 11/23/24 07:10 11/23/24 07:10 11/23/24 07:10
Lab Results - Hematology
11/20/24 11/21/24 11/22/24
15:03 08:05 05:31
WBC 8.6 9.5 7.3
Band Neutrophils 13 H
11/23/24
05:27
WBC 7.1
Band Neutrophils
Lab Results - Chemistry
11/20/24 11/22/24 11/23/24
15:03 05:31 05:27
BUN 28 H 22 H 27 H
Creatinine 0.7 0.9 1.0
Estimated Creat Clear 94 76 69
Albumin 3.9
11/20/24 11/20/24 11/20/24
15:03 19:07 23:07
Lactic Acid 2.1 H Cancelled Cancelled
11/21/24
08:05
Lactic Acid 0.9
Microbiology Results
11/20/24 15:03 Blood Culture - Preliminary
Blood/Venous Coagulase neg. staphylococcus
Gram Stain - Preliminary
11/21/24 13:10 Blood Culture - Preliminary
Blood/Venous No Growth in 24 hours- Final report to follow
11/21/24 12:12 Blood Culture - Preliminary
Blood/Venous No Growth in 24 hours- Final report to follow
11/20/24 15:12 Blood Culture - Preliminary
Blood/Venous Coagulase neg. staphylococcus
Gram Stain - Preliminary
Therapeutic Drug Monitoring
Vancomycin Peak 22.5 ug/ml (18-26) 11/22/24 22:57
Vancomycin Trough 14.2 ug/ml (5-20) 11/23/24 05:27
[2024-11-23] MEDS: CLOZARIL 150 MG PO (09:12)
[2024-11-23] MEDS: OSCAL CAL 500 500 MG PO (09:12)
[2024-11-23] MEDS: NSS (PRESERVATIVE FREE) 10 ML IV (09:13)
[2024-11-23] MEDS: PROTONIX IV 40 MG IV (09:13)
[2024-11-23] MEDS: MIRALAX PO ×2 (09:25→21:53)
[2024-11-23] MEDS: ANTIFUNGAL CLEAR 1 APPLIC TOPICAL (09:25)
--- NOTE | 2024-11-23 11:14 | W.PN.HOSP.TC ---
Addendum entered and electronically signed by Randell South MD 11/23/24 11:30:
hypokalemia/hypernatremia
will adjust IVF
Original Note:
Today's Communication/Plan
-
wean oxygen
continue IVF/NPO
Assessment / Plan
Assessment / Plan
64-year-old male past medical history of chronic developmental delay, chronic dysphagia, hypertension, CAD, GERD, chronic anemia, chronic constipation/Lucy syndrome, chronic urinary continence, BPH; p/w cough, increased work of breathing and
shortness of breath.�
Recent admission in September for flu complicated by pneumonia.
A/P:
# Sepsis POA
# bacteremia with CONS
Chest x-ray showed right basilar pneumonia/pneumonitis.
Blood cultures x2 set from admission positive for CONS
Follow repeat blood cultures x2 from 11/21
Neg MRSA screen
echo: Very TDS with ectopy and limited images.
In limited views, LV appears normal size with mildly reduced systolic function.
Estimated LVEF of 45-50%.
RV is not well visualized.
Limited valvular interrogation with no obvious disease.
Compared to prior from July 15, 2023, today's study is very technically
difficult with limited views available.
Flu/COVID negative this admission
Cont vancomycin and Zosyn.
ID CS
# Cough/short of breath
# Acute hypoxic respiratory failure
much better, currently 99% on 4 L/M
will begin weaning
# concern for aspiration pneumonia
# Resolved mild lactic acidosis
Placed on 4L NC, wean O2 as tolerated. Pt not on home O2.
VSE noted aspiration across all consistencies, SPL recc NPO.
daily SPL and repeat VSE ordered for 11/26 prior to restarting diet.
Sister/ POA has been informed about risk of aspiration. She verbalized understanding and accepts risk.
Limit PO meds
Discussed with pt's sister, Carlita who is the POA. She is not sure if pt fails swallowing evaluation that she would even want a NG tube or PEG tube and at this time she believes she would decline on having placed
Pt at this time, is not able to swallow, will continue NPO
# Chronic developmental delay
# Chronic cognitive impairment/schizoaffective disorder
# Chronic dysphagia
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
Continue home clozapine 200 mg at bedtime, 150 mg p.o. daily
NPO for now with IVF support
# Anemia of chronic disease
Drop in Hemoglobin likely dilutional effect from IVF
No active bleeding
continue to monitor
# CAD
# cardiac stents times 11/18/2016
Continue aspirin 81 mg daily, atorvastatin 40 mg at bedtime
# GERD
Continue omeprazole 40 mg twice daily, calcium carbonate 600 mg daily
# Chronic constipation/ Ogilvey syndrome
Monitor bowel movements
Home meds continued
Dulcolax MD added
# Chronic urinary incontinence
# BPH
Continue finasteride 5 mg at bedtime
DVT prophylaxis: Lovenox
CODE STATUS: Full code
DW RN
DW sister/neonatal intensive care nurse at bedside
Anticipated Discharge: > 48 hours
Subjective/Interval History
-
Date of Service: November 23, 2024
Remains very lethargic, barely arousable. Communicated with sister, MARIANA in room
Objective Data
-
Labs:
Laboratory Results
11/23/24
05:27
WBC 7.1
Hgb 10.2 L
Hct 31.1 L
Plt Count 157
Sodium 149 H
Potassium 3.1 L
Chloride 115 H
Carbon Dioxide 24
BUN 27 H
Creatinine 1.0
Glucose 104 H
Calcium 7.3 L
Vital Signs:
Vital Signs
Temp Pulse Resp BP Pulse Ox
98.1 F 89 18 113/64 99
11/23/24 07:10 11/23/24 07:10 11/23/24 07:10 11/23/24 07:10 11/23/24 07:10
I&O
11/22/24 11/23/24 11/24/24
06:59 06:59 06:59
Intake Total 1260 / 1260 960 / 960
Balance 1260 / 1260 960 / 960
Review of Systems
-
Unable to obtain full review of systems at this time due to: Patient Non-verbal
History Source: Family (sister, Carlita, POA) and Coordinated Provider
Constitutional: Reports Fever (102.3)
Respiratory: Reports No Symptoms
Cardiac: Reports No Symptoms
Abdomen/GI: Reports No Symptoms
Physical Exam
-
General: Well Developed, Well Nourished, No Apparent Distress and Appears Chronically Ill; Negative Conversant
HEENT: Normocephalic and Atraumatic
Respiratory: Clear to Auscultation (on shallow respirations)
Cardiac: Regular Rhythm and S1/S2
GI: Soft, Nontender and Nondistended
Skin: Warm and Dry
[2024-11-23] MEDS: NSS IV (11:42)
[2024-11-23] MEDS: D5/0.45%NSS with KCL 20 MEQ 1000 IV (11:47)
--- NOTE | 2024-11-23 12:15 | W.PN.ID1 ---
Date of Service
Date of Service: November 23, 2024
Today's Communication
Continue Zosyn. Discontinue further vancomycin.
Assessment / Plan
Fever
Bacteremia with Staph epi.
- Suspect contaminant - drawn in pedi-tubes
RLL infiltrate
- Suspect aspiration pneumonia
Reported encephalopathy
CAD; Hx ME
HTN
Schizoaffective disorder) issues
Intellectual disability
Recommendations:
Discontinue further vancomycin.
Continue with Zosyn 3.375 g IV every 6 hours.
Strict aspiration precautions. May consider swallowing study.
Monitor white count and temperature curve.
Sister concerned about hip infection, although no tenderness on palpation, and no signs of infection
����������������������������������������������������������
Chief Complaint
-: Fever and Pneumonia
Subjective / Review of Systems
Seen / examined. Appears more alert today to sister. Cough ongoing. Fever documented overnight, but was rectal.
Vital Signs / Physical Exam
Vital Signs
Vital Signs
Temp Pulse Resp BP Pulse Ox
97.9 F 90 18 127/76 98
11/23/24 11:20 11/23/24 11:20 11/23/24 11:20 11/23/24 11:20 11/23/24 11:20
Physical Exam
Constitutional: No Acute Distress, Comfortable, Chronically Ill and Non-toxic
Eyes: No Conjunctival Hemorrhage and Sclera Anicteric
Cardiovascular: S1/S2; Negative S3/S4
Pulmonary: Rhonchi (scattered) and Coarse
Gastrointestinal: Soft, Non Tender and Non Distended
Musculoskeletal: Other (No tenderness on hip palpation); Negative Joint Swelling
Skin: Warm and Dry; Negative Rash or Jaundice
Neurological: Awake and Alert
Psychological: Calm
Objective Data
Lab Data
Lab Results
11/23/24 05:27
11/23/24 05:27
Estimated Creat Clear 69 ml/min 11/23/24 05:27
Lactic Acid 0.9 mmol/L (0.7-2.0) 11/21/24 08:05
Total Bilirubin 2.0 mg/dl (0.2-1.3) H 11/20/24 15:03
AST 18 U/L (17-59) 11/20/24 15:03
ALT 15 U/L (0-50) 11/20/24 15:03
Alkaline Phosphatase 95 U/L (38-126) 11/20/24 15:03
Most recent labs reviewed.
Micro Results:
11/20/24 15:03 Blood Culture - Preliminary
Blood/Venous Staphylococcus epidermidis
Gram Stain - Preliminary
11/21/24 19:54 MRSA Screen - Final
Nose No Methicillin Resistant Staphylococcus aureus isolated.
11/21/24 13:10 Blood Culture - Preliminary
Blood/Venous No Growth in 24 hours- Final report to follow
11/21/24 12:12 Blood Culture - Preliminary
Blood/Venous No Growth in 24 hours- Final report to follow
11/20/24 15:12 Blood Culture - Preliminary
Blood/Venous Coagulase neg. staphylococcus
Gram Stain - Preliminary
11/20/24 14:32 Influenza Types A & B (JOHN) - Final
Nasal Swab Negative for Influenza A & B, NAAT
Negative results must be combined with clinical observations
and patient history.
Nucleic Acid Amplification test (NAAT)performed on the
[email or web address] NOW platform.
Imaging:
11/20/2024 CXR (2 view): Mild patchy interstitial and airspace opacities at the right base. No significant pleural effusion. No visualized pneumothorax. Cardiac and mediastinal contours are unremarkable. Please see full dictation for additional
detail.
Care Review
Plan reviewed with: Physician (Hospitalist)
--- NOTE | 2024-11-23 14:50 | CM ---
Reviewed the chart notes. Patient remains NPO. CM continues to be available to patient/family and is monitoring medical plan for needs at discharge.
Plan: Discharge plans will depend on the patient's progress.
[2024-11-23] MEDS: LOVENOX 40 MG SC (18:23)
[2024-11-23] MEDS: CLOZARIL 200 MG PO (21:50)
[2024-11-23] MEDS: PROSCAR 5 MG PO (21:50)
[2024-11-23] MEDS: ANTIFUNGAL CLEAR TOPICAL (21:53)
[2024-11-24] MEDS: ZOSYN 50 IV ×4 (00:17→17:09)
[2024-11-24] MEDS: D5/0.45%NSS with KCL 20 MEQ 1000 IV ×2 (02:01→15:20)
[2024-11-24 03:15] VITALS: BP 125/72
[2024-11-24 06:48] LABS: % Basophils 0.6 % (0-2); % Eosinophils 0.7 % (0-6); % Immature Granulocytes 1.8 % (0-0.5); % Lymphocytes 10.4 % (20.5-51.1); % Monocytes 7.5 % (1.7-9.3); Absolute Eosinophils 0.1 10^3/uL (0-0.7); Absolute Immature Granulocytes 0.1 10^3/uL (0-0.05); Absolute Lymphocytes 0.7 10^3/uL (1.2-3.4); Absolute Monocytes 0.5 10^3/uL (0.1-0.6); Absolute Neutrophils 5.3 10^3/uL (1.4-6.5); Hematocrit 28.8 % (39.0-52.0); Hemoglobin 9.4 g/dL (13.0-18.0); Mean Corp Hgb Conc. 32.6 g/dL (33.0-37.0); Mean Corpuscular Hgb 27.3 pg (27.0-31.0); Mean Corpuscular Volume 83.7 fL (80.0-94.0); Mean Platelet Volume 9.7 fL (7.4-10.4); Nucleated Red Blood Cells % 0 % (-); Platelet Count 165 10^3/uL (130-400); Red Blood Cell Count 3.44 10^6/uL (4.70-6.10); Red Cell Dist. Width 15.4 % (11.5-14.5); White Blood Cell Count 6.8 10^3/uL (4.8-10.8)
[2024-11-24 07:04] LABS: Blood Urea Nitrogen 27 mg/dl (9-20); Calcium 7.5 mg/dl (8.4-10.2); Carbon Dioxide 28 mmol/L (22-30); Chloride 116 mmol/L (98-107); Estimated Creatinine Clearance 82 ml/min; Glucose 134 mg/dl (70-99); Sodium 150 mmol/L (135-145); eGFR > 60.00
[2024-11-24 07:50] VITALS: BP 130/71
[2024-11-24] MEDS: CLOZARIL 150 MG PO (09:25)
[2024-11-24] MEDS: MIRALAX PO ×2 (09:25→21:15)
[2024-11-24] MEDS: OSCAL CAL 500 PO (09:26)
[2024-11-24] MEDS: PROTONIX IV 40 MG IV (09:26)
[2024-11-24] MEDS: NSS (PRESERVATIVE FREE) 10 ML IV (09:27)
[2024-11-24] MEDS: ANTIFUNGAL CLEAR 1 APPLIC TOPICAL ×2 (09:30→21:16)
[2024-11-24] MEDS: TYLENOL/FEVERALL 325 MG RECTAL (09:44)
--- NOTE | 2024-11-24 11:03 | W.PN.HOSP.TC ---
Addendum entered and electronically signed by Randell South MD 11/24/24 11:18:
With increased Na and decreased K, will increase IVF rate, recheck and adjust pending results
Original Note:
Today's Communication/Plan
-
continue Zosyn
continue NPO except meds
Assessment / Plan
Assessment / Plan
64-year-old male past medical history of chronic developmental delay, chronic dysphagia, hypertension, CAD, GERD, chronic anemia, chronic constipation/[place] syndrome, chronic urinary continence, BPH; p/w cough, increased work of breathing and
shortness of breath.�
Recent admission in September for flu complicated by pneumonia.
A/P:
# Sepsis POA
# bacteremia with CONS
Chest x-ray showed right basilar pneumonia/pneumonitis.
Blood cultures x2 set from admission positive for CONS
Follow repeat blood cultures x2 from 11/21
Neg MRSA screen
echo: Very TDS with ectopy and limited images.
In limited views, LV appears normal size with mildly reduced systolic function.
Estimated LVEF of 45-50%.
RV is not well visualized.
Limited valvular interrogation with no obvious disease.
Compared to prior from July 15, 2023, today's study is very technically
difficult with limited views available.
Flu/COVID negative this admission
Cont vancomycin and Zosyn.
ID CS
sister raised concern with Dr. Ball that she is concerned about possible hip infection. Pt remains on abx and unclear if he could tolerate imaging studies currently, will discuss further as mentation improves
# Cough/short of breath
# Acute hypoxic respiratory failure
much better, currently 99% on 4 L/M
will begin weaning
# concern for aspiration pneumonia
# Resolved mild lactic acidosis
Placed on 4L NC, wean O2 as tolerated. Pt not on home O2.
VSE noted aspiration across all consistencies, SPL recc NPO.
daily SPL and repeat VSE ordered for Tue 11/26 prior to restarting diet.
Sister/ POA has been informed about risk of aspiration. She verbalized understanding and accepts risk.
Limit PO meds
Discussed with pt's sister, Carlita who is the POA. She is not sure if pt fails swallowing evaluation that she would even want a NG tube or PEG tube and at this time she believes she would decline on having placed.
Met with sister again 11/24, she is considering a short term NG tube until he is fully back to baseline to give him the best opportunity to see if swallowing fxn gets back to baseline. Discussed, will continue to follow, but if remains impaired by
11/26, will need to consider NG tube. I believe pt is at risk of pulling out tube, sister does not believe he will do this
Pt at this time, is not able to swallow, will continue NPO
# Chronic developmental delay
# Chronic cognitive impairment/schizoaffective disorder
# Chronic dysphagia
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
Continue home clozapine 200 mg at bedtime, 150 mg p.o. daily
NPO for now with IVF support
# Anemia of chronic disease
Drop in Hemoglobin likely dilutional effect from IVF
No active bleeding
continue to monitor
# CAD
# cardiac stents times 11/18/2016
Continue aspirin 81 mg daily, atorvastatin 40 mg at bedtime
# GERD
Continue omeprazole 40 mg twice daily, calcium carbonate 600 mg daily
# Chronic constipation/ [place] syndrome
Monitor bowel movements
Home meds continued
Dulcolax [place] added
# Chronic urinary incontinence
# BPH
Continue finasteride 5 mg at bedtime
DVT prophylaxis: Lovenox
CODE STATUS: Full code
DW RN
DW sister/skin care consultant/POA at bedside
time 50 minutes
Anticipated Discharge: > 48 hours
Subjective/Interval History
-
Date of Service: November 24, 2024
More awake today, attempted to give medication in pureed and developed coughing spasms
Objective Data
-
Labs:
Laboratory Results
11/24/24
06:02
WBC 6.8
Hgb 9.4 L
Hct 28.8 L
Plt Count 165
Sodium 150 H
Potassium 3.0 L
Chloride 116 H
Carbon Dioxide 28
BUN 27 H
Creatinine 0.8
Glucose 134 H
Calcium 7.5 L
Vital Signs:
Vital Signs
Temp Pulse Resp BP Pulse Ox
100.1 F 76 24 130/71 96
11/24/24 07:50 11/24/24 07:50 11/24/24 07:50 11/24/24 07:50 11/24/24 07:50
I&O
11/23/24 11/24/24 11/25/24
06:59 06:59 06:59
Intake Total 960 / 960 0 / 0
Output Total
Balance 960 / 960 - / 25
Review of Systems
-
Unable to obtain full review of systems at this time due to: Patient Non-verbal
History Source: Family (sister, Carlita, POA) and Coordinated Provider
Constitutional: Reports Fever (102.3 11/22 19:26, Tmax past 24 hrs 100.1)
Respiratory: Reports No Symptoms
Cardiac: Reports No Symptoms
Abdomen/GI: Reports No Symptoms
Physical Exam
-
General: Well Developed, Well Nourished, No Apparent Distress and Appears Chronically Ill; Negative Conversant
HEENT: Normocephalic and Atraumatic
Respiratory: Rhonchi (minimal coarse rhonchi on Rt); Negative Clear to Auscultation
Cardiac: Regular Rhythm and S1/S2
GI: Soft, Nontender and Nondistended
Skin: Warm and Dry
Neuro: Awake
[2024-11-24 15:50] VITALS: BP 127/73
[2024-11-24] MEDS: LOVENOX 40 MG SC (17:09)
[2024-11-24] MEDS: PROSCAR 5 MG PO (21:13)
[2024-11-24] MEDS: CLOZARIL 200 MG PO (21:13)
[2024-11-24 23:35] VITALS: BP 122/64
[2024-11-25] MEDS: ZOSYN 50 IV ×5 (00:11→23:08)
[2024-11-25] MEDS: D5/0.45%NSS with KCL 20 MEQ 1000 IV (00:14)
[2024-11-25 07:11] LABS: Blood Urea Nitrogen 28 mg/dl (9-20); Calcium 7.8 mg/dl (8.4-10.2); Carbon Dioxide 25 mmol/L (22-30); Chloride 116 mmol/L (98-107); Estimated Creatinine Clearance 94 ml/min; Glucose 146 mg/dl (70-99); Potassium 3.2 mmol/L (3.5-5.1); Sodium 150 mmol/L (135-145); eGFR > 60.00
[2024-11-25 07:45] VITALS: BP 124/64
[2024-11-25] MEDS: SODIUM CHLORIDE 1028.55 MEQ IV ×4 (08:22→19:42)
[2024-11-25] MEDS: CLOZARIL 150 MG PO (09:32)
[2024-11-25] MEDS: MIRALAX PO ×2 (09:32→19:45)
[2024-11-25] MEDS: NSS (PRESERVATIVE FREE) 10 ML IV (09:34)
[2024-11-25] MEDS: ANTIFUNGAL CLEAR 1 APPLIC TOPICAL ×2 (09:35→19:44)
[2024-11-25] MEDS: PROTONIX IV 40 MG IV (09:35)
[2024-11-25] MEDS: OSCAL CAL 500 PO (09:35)
[2024-11-25] MEDS: TYLENOL/FEVERALL 325 MG RECTAL (12:40)
[2024-11-25] MEDS: D5/0.45%NSS with KCL 20 MEQ IV (12:48)
--- NOTE | 2024-11-25 15:10 | W.PN.HOSP.TC ---
Today's Communication/Plan
-
IVF adjusted
CXR
continue abx
extensive GOC discussion
Assessment / Plan
Assessment / Plan
64-year-old male past medical history of chronic developmental delay, chronic dysphagia, hypertension, CAD, GERD, chronic anemia, chronic constipation/[place] syndrome, chronic urinary continence, BPH; p/w cough, increased work of breathing and
shortness of breath.�
Recent admission in September for flu complicated by pneumonia.
A/P:
# Sepsis POA
# bacteremia with CONS
Chest x-ray showed right basilar pneumonia/pneumonitis.
Blood cultures x2 set from admission positive for CONS
Neg repeat blood cultures x2 from 11/[address] Ball believes Staph Epi is a contaminant
Neg MRSA screen
echo: Very TDS with ectopy and limited images.
In limited views, LV appears normal size with mildly reduced systolic function.
Estimated LVEF of 45-50%.
RV is not well visualized.
Limited valvular interrogation with no obvious disease.
Compared to prior from July 15, 2023, today's study is very technically
difficult with limited views available.
Flu/COVID negative this admission
Cont vancomycin and Zosyn.
ID CS
sister raised concern with Dr. Ball that she is concerned about possible hip infection of prosthetic hip. She states someone she knew had similar issues and was eventually found to have prosthetic joint infection. Pt shows no obvious sign of
infection of hip.Pt remains on abx and unclear if he could tolerate imaging studies currently, will discuss further as mentation improves
# Cough/short of breath
# Acute hypoxic respiratory failure
much better, currently 94% on room air
# concern for aspiration pneumonia on Zosyn . See excellent note by ST Jeff[facility]
lung does sound congested, has intermittent fever. Most likely repeatedly aspirating
# Resolved mild lactic acidosis
Placed on 4L NC, weaned O2 as tolerated. Pt not on home O2.
VSE noted aspiration across all consistencies, SPL recc NPO.
daily SPL and repeat VSE ordered for Mon 11/26 prior to restarting diet.
Sister/ POA has been informed about risk of aspiration. She verbalized understanding and accepts risk.
Limit PO meds
Discussed with pt's sister, Carlita who is the POA. She is not sure if pt fails swallowing evaluation that she would even want a NG tube or PEG tube and at this time she believes she would decline on having placed.
Met with sister again 11/24, she is considering a short term NG tube until he is fully back to baseline to give him the best opportunity to see if swallowing fxn gets back to baseline. Discussed, will continue to follow, but if remains impaired by
11/26, will need to consider NG tube. I believe pt is at risk of pulling out tube, sister does not believe he will do this
Pt at this time, is not able to swallow, will continue NPO. Discussed with sister that if he is unable to safely eat and she does not want a feeding tube, the next option would be comfort eating on Hospice. For now her wish would be to continue
current management and see if ability to eat does not improve
# Chronic developmental delay
# Chronic cognitive impairment/schizoaffective disorder
# Chronic dysphagia
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
Continue home clozapine 200 mg at bedtime, 150 mg p.o. daily
NPO for now with IVF support
Hypernatremia with hypokalemia
initially increased IV infusion rate, but lytes essentially unchanged. have now transitioned to D51/4NS with 40 Meq KCL and will recheck in morning
# Anemia of chronic disease
Drop in Hemoglobin likely dilutional effect from IVF
No active bleeding
continue to monitor
# CAD
# cardiac stents times 11/18/2016
Continue aspirin 81 mg daily, atorvastatin 40 mg at bedtime
# GERD
Continue omeprazole 40 mg twice daily, calcium carbonate 600 mg daily
# Chronic constipation/ [place] syndrome
Monitor bowel movements
Home meds continued
Dulcolax [place] added
# Chronic urinary incontinence
# BPH
Continue finasteride 5 mg at bedtime
DVT prophylaxis: Lovenox
CODE STATUS: Full code
DW RN
DW sister/point of care technician/POA at bedside
time 50 minutes
Anticipated Discharge: > 48 hours
Subjective/Interval History
-
Date of Service: November 25, 2024
Much more awake, still with evidence of aspiration when tries to swallow
Objective Data
-
Labs:
Laboratory Results
11/25/24 11/25/24
00:30 06:03
Sodium Cancelled 150 H
Potassium Cancelled 3.2 L
Chloride Cancelled 116 H
Carbon Dioxide Cancelled 25
BUN Cancelled 28 H
Creatinine Cancelled 0.7
Glucose Cancelled 146 H
Calcium Cancelled 7.8 L
Vital Signs:
Vital Signs
Temp Pulse Resp BP Pulse Ox
100.5 F H 74 18 124/64 94
11/25/24 12:40 11/25/24 07:45 11/25/24 07:45 11/25/24 07:45 11/25/24 07:45
I&O
11/24/24 11/25/24 11/26/24
06:59 06:59 06:59
Intake Total 0 / 0 1280 / 1280
Output Total
Balance - / - 1280 / 1280
Review of Systems
-
Unable to obtain full review of systems at this time due to: Patient Non-verbal
History Source: Family (sister, Carlita, POA) and Coordinated Provider
Constitutional: Reports Fever (102.3 11/22 19:26, Tmax past 24 hrs 100.5)
Respiratory: Reports No Symptoms
Cardiac: Reports No Symptoms
Abdomen/GI: Reports No Symptoms
Physical Exam
-
General: Well Developed, Well Nourished, No Apparent Distress and Appears Chronically Ill; Negative Conversant
HEENT: Normocephalic and Atraumatic
Respiratory: Rhonchi (minimal coarse rhonchi on Rt); Negative Clear to Auscultation
Cardiac: Regular Rhythm and S1/S2
GI: Soft, Nontender and Nondistended
Skin: Warm and Dry
Neuro: Awake
[2024-11-25 15:35] VITALS: BP 147/79
[2024-11-25] MEDS: LOVENOX 40 MG SC (17:34)
[2024-11-25] MEDS: CLOZARIL 200 MG PO (19:45)
[2024-11-25] MEDS: PROSCAR 5 MG PO (19:46)
[2024-11-25 22:21] VITALS: BP 116/72
[2024-11-25 23:39] VITALS: BP 144/78
[2024-11-26] MEDS: ZOSYN 50 IV ×2 (05:09→12:28)
[2024-11-26 06:21] LABS: % Basophils 0.5 % (0-2); % Eosinophils 2.7 % (0-6); % Immature Granulocytes 0.6 % (0-0.5); % Lymphocytes 18.5 % (20.5-51.1); % Monocytes 5.8 % (1.7-9.3); % Neutrophils 71.9 % (42.2-75.2); Absolute Eosinophils 0.2 10^3/uL (0-0.7); Absolute Lymphocytes 1.2 10^3/uL (1.2-3.4); Absolute Monocytes 0.4 10^3/uL (0.1-0.6); Absolute Neutrophils 4.7 10^3/uL (1.4-6.5); Hemoglobin 8.9 g/dL (13.0-18.0); Mean Corpuscular Hgb 27.6 pg (27.0-31.0); Mean Corpuscular Volume 83.9 fL (80.0-94.0); Mean Platelet Volume 10.2 fL (7.4-10.4); Nucleated Red Blood Cells % 0 % (-); Platelet Count 197 10^3/uL (130-400); Red Blood Cell Count 3.22 10^6/uL (4.70-6.10); Red Cell Dist. Width 15.8 % (11.5-14.5); White Blood Cell Count 6.6 10^3/uL (4.8-10.8)
[2024-11-26 06:44] LABS: ALT (SGPT) 48 U/L (0-50); AST (SGOT) 52 U/L (17-59); Albumin 2.7 g/dl (3.5-5.0); Alkaline Phosphatase 97 U/L (38-126); Blood Urea Nitrogen 23 mg/dl (9-20); Calcium 7.7 mg/dl (8.4-10.2); Carbon Dioxide 25 mmol/L (22-30); Chloride 115 mmol/L (98-107); Estimated Creatinine Clearance 110 ml/min; Glucose 124 mg/dl (70-99); Potassium 3.6 mmol/L (3.5-5.1); Sodium 147 mmol/L (135-145); Total Bilirubin 1.1 mg/dl (0.2-1.3); eGFR > 60.00
[2024-11-26 07:32] VITALS: BP 133/83
--- NOTE | 2024-11-26 08:46 | W.PN.HOSP.TC ---
Today's Communication/Plan
-
continue IVF
Hospice consult
Assessment / Plan
Assessment / Plan
64-year-old male past medical history of chronic developmental delay, chronic dysphagia, hypertension, CAD, GERD, chronic anemia, chronic constipation/[place] syndrome, chronic urinary continence, BPH; p/w cough, increased work of breathing and
shortness of breath.�
Recent admission in September for flu complicated by pneumonia. As per sister, pt has been having swallowing impairment for years (3-5), but has become much more pronounced over past 3-6 months
She does not want him to spend his last years with a feeding tube and has decided to proceed with Hospice
A/P:
# Sepsis POA
# bacteremia with CONS
Chest x-ray showed right basilar pneumonia/pneumonitis.
Blood cultures x2 set from admission positive for CONS
Neg repeat blood cultures x2 from 11/[address] Ball believes Staph Epi is a contaminant
Neg MRSA screen
echo: Very TDS with ectopy and limited images.
In limited views, LV appears normal size with mildly reduced systolic function.
Estimated LVEF of 45-50%.
RV is not well visualized.
Limited valvular interrogation with no obvious disease.
Compared to prior from July 15, 2023, today's study is very technically
difficult with limited views available.
Flu/COVID negative this admission
Cont vancomycin and Zosyn.
ID CS
sister raised concern with Dr. Ball that she is concerned about possible hip infection of prosthetic hip. She states someone she knew had similar issues and was eventually found to have prosthetic joint infection. Pt shows no obvious sign of
infection of hip.Pt remains on abx and unclear if he could tolerate imaging studies currently, will discuss further as mentation improves
# Cough/short of breath
# Acute hypoxic respiratory failure
much better, currently 94% on room air
# concern for aspiration pneumonia on Zosyn . See excellent note by ST Jeff[facility]
lung does sound congested, has intermittent fever. Most likely repeatedly aspirating
# Resolved mild lactic acidosis
Placed on 4L NC, weaned O2 as tolerated. Pt not on home O2.
VSE noted aspiration across all consistencies, SPL recc NPO.
daily SPL and repeat VSE ordered for 11/26 prior to restarting diet.
Sister/ POA has been informed about risk of aspiration. She verbalized understanding and accepts risk.
Limit PO meds
Discussed with pt's sister, Carlita who is the POA. She has decided that she does not want a feeding tube. Will cancel the VSE and place a Hospice consult
# Chronic developmental delay
# Chronic cognitive impairment/schizoaffective disorder
# Chronic dysphagia
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
Continue home clozapine 200 mg at bedtime, 150 mg p.o. daily
NPO for now with IVF support
Hypernatremia with hypokalemia
initially increased IV infusion rate, but lytes essentially unchanged. have now transitioned to D51/4NS with 40 Meq KCL and will recheck in morning
Na is better 150-->147 and K is better 3.2-->3.6. Will continue IVF for now, hopefully with normalization he will wake up enough where he can take in some liquid by mouth while on Hospice
# Anemia of chronic disease
Drop in Hemoglobin likely dilutional effect from IVF
No active bleeding
continue to monitor
# CAD
# cardiac stents times 11/18/2016
Continue aspirin 81 mg daily, atorvastatin 40 mg at bedtime
# GERD
Continue omeprazole 40 mg twice daily, calcium carbonate 600 mg daily
# Chronic constipation/ [place] syndrome
Monitor bowel movements
Home meds continued
Dulcolax [place] added
# Chronic urinary incontinence
# BPH
Continue finasteride 5 mg at bedtime
DVT prophylaxis: Lovenox
CODE STATUS: Full code
DW RN
DW sister/ambulatory care nurse/POA at bedside
time 50 minutes
Anticipated Discharge: 24 - 48 hours
Subjective/Interval History
-
Date of Service: November 26, 2024
Lethargic
Objective Data
-
Labs:
Laboratory Results
11/26/24
05:39
WBC 6.6
Hgb 8.9 L
Hct 27.0 L
Plt Count 197
Sodium 147 H
Potassium 3.6
Chloride 115 H
Carbon Dioxide 25
BUN 23 H
Creatinine 0.6 L
Glucose 124 H
Calcium 7.7 L
Total Bilirubin 1.1
AST 52
ALT 48
Alkaline Phosphatase 97
Vital Signs:
Vital Signs
Temp Pulse Resp BP Pulse Ox
98.2 F 82 18 133/83 94
11/26/24 07:32 11/26/24 07:32 11/26/24 07:32 11/26/24 07:32 11/26/24 07:32
I&O
11/25/24 11/26/24 11/27/24
06:59 06:59 06:59
Intake Total 1280 / 1280 2800 / 2800
Balance 1280 / 1280 2800 / 2800
Review of Systems
-
Unable to obtain full review of systems at this time due to: Patient Non-verbal
History Source: Family (sister, Carlita, POA) and Coordinated Provider
Constitutional: Reports Fever (102.3 11/22 19:26, Tmax past 24 hrs 100.5)
Respiratory: Reports No Symptoms
Cardiac: Reports No Symptoms
Abdomen/GI: Reports No Symptoms
Physical Exam
-
General: Well Developed, Well Nourished, No Apparent Distress, Appears Chronically Ill and Other (Lethargic); Negative Conversant
HEENT: Normocephalic and Atraumatic
Respiratory: Rhonchi (minimal coarse rhonchi on Rt, clearer today); Negative Clear to Auscultation
Cardiac: Regular Rhythm and S1/S2
GI: Soft, Nontender and Nondistended
Skin: Warm and Dry
Neuro: Awake
[2024-11-26] MEDS: SODIUM CHLORIDE 1028.55 MEQ IV ×4 (08:47→17:44)
[2024-11-26] MEDS: OSCAL CAL 500 PO ×2 (08:49→17:54)
[2024-11-26] MEDS: PROTONIX IV 40 MG IV (08:49)
[2024-11-26] MEDS: NSS (PRESERVATIVE FREE) 10 ML IV (08:49)
[2024-11-26] MEDS: MIRALAX PO ×2 (08:49→21:27)
[2024-11-26] MEDS: CLOZARIL PO ×2 (08:49→17:56)
[2024-11-26] MEDS: ANTIFUNGAL CLEAR 1 APPLIC TOPICAL (08:54)
--- NOTE | 2024-11-26 10:38 | CM ---
Addendum entered by Dalia Hu RN 11/26/24 12:15:
IMM reviewed with the patient's sister at the bedside. Plan is for home tomorrow around 11am transport per Hospice request.
Original Note:
Reviewed the chart notes and spoke with the attending. Patient's family have decided on home hospice and selected Hospice. Referral sent in [facility].
Plan: Discharge to home on Hospice services.
--- NOTE | 2024-11-26 11:44 | HOSPNOTE ---
Spoke with sister about hospice services and the philosophy. The plan is home tomorrow with hospice. OOH DNR needed on chart. Transport is requested for 11am. Attending and CM aware of plan. Once patient gets home he will be signed onto hospice
services with [facility].
--- NOTE | 2024-11-26 15:23 | W.PN.ID1 ---
Date of Service
Date of Service: November 26, 2024
Today's Communication
Discontinue antibiotics. Sign off.
Assessment / Plan
Fever
Bacteremia with Staph epi.
- Suspect contaminant - drawn in pedi-tubes
RLL infiltrate
- Suspect aspiration pneumonia
Reported encephalopathy
CAD; Hx IN
HTN
Schizoaffective disorder) issues
Intellectual disability
Recommendations:
Chart reviewed. Patient with ongoing aspiration.
Family has decided to pursue hospice at this time; for discharge tomorrow.
Nothing further to add from a Infectious Disease standpoint.
Will discontinue further antibiotics.
Will see again your request.
����������������������������������������������������������
Chief Complaint
-: Fever and Pneumonia
Subjective / Review of Systems
Review of Systems: No Fever
Vital Signs / Physical Exam
Vital Signs
Vital Signs
Temp Pulse Resp BP Pulse Ox
98.2 F 82 18 133/83 94
11/26/24 07:32 11/26/24 07:32 11/26/24 07:32 11/26/24 07:32 11/26/24 11:59
Physical Exam
Constitutional: No Acute Distress, Comfortable, Chronically Ill and Non-toxic
Pulmonary: Non Labored
Gastrointestinal: Non Distended
Neurological: Other (resting comfortably)
Psychological: Calm
Objective Data
Lab Data
Lab Results
11/26/24 05:39
11/26/24 05:39
Estimated Creat Clear 110 ml/min 11/26/24 05:39
Lactic Acid 0.9 mmol/L (0.7-2.0) 11/21/24 08:05
Total Bilirubin 1.1 mg/dl (0.2-1.3) 11/26/24 05:39
AST 52 U/L (17-59) 11/26/24 05:39
ALT 48 U/L (0-50) 11/26/24 05:39
Alkaline Phosphatase 97 U/L (38-126) 11/26/24 05:39
Most recent labs reviewed.
Micro Results:
11/21/24 13:10 Blood Culture - Final
Blood/Venous No Growth - Final Report
11/21/24 12:12 Blood Culture - Final
Blood/Venous No Growth - Final Report
11/20/24 15:12 Blood Culture - Preliminary
Blood/Venous Staphylococcus epidermidis
Gram Stain - Preliminary
11/20/24 15:03 Blood Culture - Preliminary
Blood/Venous Staphylococcus epidermidis
Gram Stain - Preliminary
11/21/24 19:54 MRSA Screen - Final
Nose No Methicillin Resistant Staphylococcus aureus isolated.
11/20/24 14:32 Influenza Types A & B (JOHN) - Final
Nasal Swab Negative for Influenza A & B, NAAT
Negative results must be combined with clinical observations
and patient history.
Nucleic Acid Amplification test (NAAT)performed on the
[employer] platform.
Imaging:
11/20/2024 CXR (2 view): Mild patchy interstitial and airspace opacities at the right base. No significant pleural effusion. No visualized pneumothorax. Cardiac and mediastinal contours are unremarkable. Please see full dictation for additional
detail.
[2024-11-26 16:19] VITALS: BP 149/91
[2024-11-26] MEDS: LOVENOX 40 MG SC (17:45)
[2024-11-26] MEDS: CLOZARIL 200 MG PO (18:15)
--- NOTE | 2024-11-26 18:42 | PTCARENOTE ---
Patient's mental status waxing and waning throughout shift, unable to take scheduled AM PO meds d/t drowsiness. Patient awake in bed this evening, sister at bedside requesting HS dose of PO clozaril be given now while patient is awake as sister does
not want patient to miss another scheduled dose. This RN communicated with MD and cross coverage, bedtime dose of PO clozaril given now - see MAR. IVF infusing through L FA IV, patient to be DCed on home hospice tomorrow AM.
[2024-11-26] MEDS: ANTIFUNGAL CLEAR TOPICAL (21:27)
[2024-11-26] MEDS: PROSCAR PO (21:41)
[2024-11-26 23:13] VITALS: BP 139/74
[2024-11-27] MEDS: SODIUM CHLORIDE 1028.55 MEQ IV ×2 (03:53)
[2024-11-27 07:55] VITALS: BP 139/88
[2024-11-27 08:02] LABS: Blood Urea Nitrogen 13 mg/dl (9-20); Calcium 8.2 mg/dl (8.4-10.2); Carbon Dioxide 25 mmol/L (22-30); Chloride 112 mmol/L (98-107); Estimated Creatinine Clearance 94 ml/min; Glucose 120 mg/dl (70-99); Sodium 143 mmol/L (135-145); eGFR > 60.00
[2024-11-27] MEDS: PROTONIX IV 40 MG IV (08:15)
[2024-11-27] MEDS: OSCAL CAL 500 500 MG PO (08:15)
[2024-11-27] MEDS: NSS (PRESERVATIVE FREE) 10 ML IV (08:15)
[2024-11-27] MEDS: MIRALAX PO (08:16)
[2024-11-27] MEDS: ANTIFUNGAL CLEAR 1 APPLIC TOPICAL (08:16)
[2024-11-27] MEDS: CLOZARIL 150 MG PO (08:16)
--- NOTE | 2024-11-27 08:26 | W.PN.HOSP.TC ---
Today's Communication/Plan
-
dc now
Assessment / Plan
Assessment / Plan
64-year-old male past medical history of chronic developmental delay, chronic dysphagia, hypertension, CAD, GERD, chronic anemia, chronic constipation/Lucy syndrome, chronic urinary continence, BPH; p/w cough, increased work of breathing and
shortness of breath.�
Recent admission in September for flu complicated by pneumonia. As per sister, pt has been having swallowing impairment for years (3-5), but has become much more pronounced over past 3-6 months
She does not want him to spend his last years with a feeding tube and has decided to proceed with Hospice
A/P:
# Sepsis POA
# bacteremia with CONS
Chest x-ray showed right basilar pneumonia/pneumonitis.
Blood cultures x2 set from admission positive for CONS
Neg repeat blood cultures x2 from 11/21
[address] Ball believes Staph Epi is a contaminant
Neg MRSA screen
echo: Very TDS with ectopy and limited images.
In limited views, LV appears normal size with mildly reduced systolic function.
Estimated LVEF of 45-50%.
RV is not well visualized.
Limited valvular interrogation with no obvious disease.
Compared to prior from July 15, 2023, today's study is very technically
difficult with limited views available.
Flu/COVID negative this admission
Cont vancomycin and Zosyn.
ID CS
sister raised concern with Dr. Ball that she is concerned about possible hip infection of prosthetic hip. She states someone she knew had similar issues and was eventually found to have prosthetic joint infection. Pt shows no obvious sign of
infection of hip.Pt remains on abx and unclear if he could tolerate imaging studies currently, will discuss further as mentation improves
# Cough/short of breath
# Acute hypoxic respiratory failure
much better, currently 94% on room air
# concern for aspiration pneumonia on Zosyn . Zosyn was stopped yesterday by ID as pt going on Hospice, will dc on oral augmentin. See excellent note by ST eJffery
lung does sound congested, has intermittent fever. Most likely repeatedly aspirating
# Resolved mild lactic acidosis
Placed on 4L NC, weaned O2 as tolerated. Pt not on home O2.
VSE noted aspiration across all consistencies, SPL recc NPO.
daily SPL and repeat VSE ordered for 11/26 prior to restarting diet.
Sister/ POA has been informed about risk of aspiration. She verbalized understanding and accepts risk.
Limit PO meds
Discussed with pt's sister, Carlita who is the POA. She has decided that she does not want a feeding tube. Will cancel the VSE and place a Hospice consult.
Out of Hosp DNR form signed. Call placed and updated PCP, Haritha Ellis
# Chronic developmental delay
# Chronic cognitive impairment/schizoaffective disorder
# Chronic dysphagia
CHIEF OF PLANNING on purred diet with thin liquids
Continue home clozapine 200 mg at bedtime, 150 mg p.o. daily
NPO for now with IVF support
Hypernatremia with hypokalemia
initially increased IV infusion rate, but lytes essentially unchanged. have now transitioned to D51/4NS with 40 Meq KCL and will recheck in morning
Na is better 150-->147-->143 and K is better 3.2-->3.6-->4.0. Will continue IVF for now, hopefully with normalization he will wake up enough where he can take in some liquid by mouth while on Hospice
# Anemia of chronic disease
Drop in Hemoglobin likely dilutional effect from IVF
No active bleeding
continue to monitor
# CAD
# cardiac stents times 11/18/2016
Continue aspirin 81 mg daily, atorvastatin 40 mg at bedtime
# GERD
Continue omeprazole 40 mg twice daily, calcium carbonate 600 mg daily
# Chronic constipation/ Ogilvey syndrome
Monitor bowel movements
Home meds continued
Dulcolax GA added
# Chronic urinary incontinence
# BPH
Continue finasteride 5 mg at bedtime
DVT prophylaxis: Lovenox
CODE STATUS: changed to DNR
DW RN
DW sister/infant caregiver/POA at bedside
will dc now
see dictated note
More than 30 minutes spent in discharge including
Final examination of the patient
Summarizing hospital stay
Instructions for continuing care to all relevant caregivers
Preparation of discharge records, prescriptions, and referral forms
Total time spent (in minutes): 60
Anticipated Discharge: Today
Subjective/Interval History
-
Date of Service: November 27, 2024
Much more alert today
Objective Data
-
Labs:
Laboratory Results
11/27/24
05:53
Sodium 143
Potassium 4.0
Chloride 112 H
Carbon Dioxide 25
BUN 13
Creatinine 0.7
Glucose 120 H
Calcium 8.2 L
Vital Signs:
Vital Signs
Temp Pulse Resp BP Pulse Ox
98.4 F 71 17 139/74 96
11/26/24 23:13 11/26/24 23:13 11/26/24 23:13 11/26/24 23:13 11/26/24 23:13
I&O
11/26/24 11/27/24 11/28/24
06:59 06:59 06:59
Intake Total 2800 / 2800 1200 / 1200
Balance 2800 / 2800 1200 / 1200
Review of Systems
-
Unable to obtain full review of systems at this time due to: Patient Non-verbal
History Source: Family (sister, Carlita, POA) and Coordinated Provider
Constitutional: Reports Fever (102.3 11/22 19:26, last fever 11/25 at 12:40 was 100.5)
Respiratory: Reports No Symptoms
Cardiac: Reports No Symptoms
Abdomen/GI: Reports No Symptoms
Physical Exam
-
General: Well Developed, Well Nourished, No Apparent Distress and Other (much more awake)
HEENT: Normocephalic and Atraumatic
Respiratory: Rhonchi (minimal coarse rhonchi on Rt, clearer today); Negative Clear to Auscultation
Cardiac: Regular Rhythm and S1/S2
GI: Soft, Nontender and Nondistended
Skin: Warm and Dry
Neuro: Awake
--- NOTE | 2024-11-27 08:45 | CM ---
Reviewed the chart notes. Patient is for discharge to home today on Hospice. CM continues to be available to patient/family and is monitoring medical plan for needs at discharge.
Plan: Home with Hospice.
Medical necessity and transport forms on the chart.
--- NOTE | 2024-11-27 10:04 | W.DS.TRANS ---
DC Summary - Utilization Specialist
-
Discharge Instructions:
Discharge Diagnosis/Procedures Aspiration Pneumonia
Diet Chop all food
Activity With assistance
Driving Restrictions No driving
Bathing Restrictions None
Other Services Hospice
Instructions:
Stand-Alone Forms:
Changes to Home Medications: Yes
Discharge Medications:
DC Medications w/original date entered in [employer]
nitroglycerin 0.4 mg sublingual tablet 0.4 mg sublingual [id number] PRN chest pain #25 tabs 11/25/16
bisacodyl 5 mg tablet,delayed release 5 mg PO DAILYPRN PRN constipation 09/04/21
clozapine 100 mg tablet 150 mg PO DAILY mental health 09/04/21
clozapine 100 mg tablet 200 mg PO HS Mental Health 09/04/21
finasteride 5 mg tablet 5 mg PO HS Urinary issue 09/04/21
aspirin 81 mg tablet,delayed release 81 mg PO DAILY Blood Clot Prevention/Tx 05/24/23
calcium carbonate 600 mg PO DAILY Supplement 05/24/23
cholecalciferol (vitamin D3) 25 mcg (1,000 unit) tablet 25 mcg PO DAILY Supplement 05/24/23
methenamine hippurate 1 gram tablet 1 g PO BID urinary infection prevention 05/24/23
omeprazole 40 mg capsule,delayed release 40 mg PO BID Gastrointestinal Issue 05/24/23
acetaminophen 325 mg tablet (Tylenol) 650 mg PO Q4HPRN PRN mild pain 06/14/23
lactulose 10 gram/15 mL oral solution (Enulose) 10 g PO DAILYPRN PRN constipation 06/14/23
phenazopyridine 200 mg tablet 200 mg PO DAILYPRN PRN urinary tract pain 06/14/23
polyethylene glycol 3350 17 gram/dose oral powder (Miralax) 35 g PO BID Constipation 06/14/23
sennosides 8.6 mg tablet (senna) 8.6 mg PO DAILYPRN PRN constipation 06/14/23
atorvastatin 40 mg tablet 40 mg PO HS 04/02/24
amoxicillin 875 mg-potassium clavulanate 125 mg tablet 1 tab PO Q12H #10 tabs 11/27/24
Home Medication Changes
short course of Augmentin added
Pending Results: No
--- NOTE | 2024-11-27 11:22 | PTCARENOTE ---
Patient discharged home on hospice. IV removed by this RN. Discharge plan reviewed with sister at bedside who verbalized understanding. Patient changed and bed bath given by this RN and tech prior to discharge. Patient transported home via EMS
transport, belongings gathered in room by sister.
== END 2024-11-27 11:29 | disposition hospice, home (50) | DRG 871 ==
LOC: 2 NORTH 17:13
PROVIDERS: Internal Medicine; Registered Nurse; ADMITTING PHYSICIAN Hospitalist; ATTENDING PHYSICIAN Internal Medicine; CONSULT PHYSICIAN Internal Medicine Infectious Disease; EMERGENCY PHYSICIAN Student in an Organized Health Care Education/Training Program; FAMILY PHYSICIAN Internal Medicine
DX: A41.1 Sepsis due to other specified staphylococcus (principal); J18.9 Pneumonia, unspecified organism; J69.0 Pneumonitis due to inhalation of food and vomit; J96.01 Acute respiratory failure with hypoxia; G93.40 Encephalopathy, unspecified; E87.20 Acidosis, unspecified; E87.0 Hyperosmolality and hypernatremia; I10 Essential (primary) hypertension; K21.9 Gastro-esophageal reflux disease without esophagitis; I25.10 Atherosclerotic heart disease of native coronary artery without angina pectoris; R13.10 Dysphagia, unspecified; K59.09 Other constipation; F79 Unspecified intellectual disabilities; K59.81 Ogilvie syndrome; R32 Unspecified urinary incontinence; N40.1 Benign prostatic hyperplasia with lower urinary tract symptoms; D63.8 Anemia in other chronic diseases classified elsewhere; R62.50 Unspecified lack of expected normal physiological development in childhood; Q12.0 Congenital cataract; M81.0 Age-related osteoporosis without current pathological fracture; E21.3 Hyperparathyroidism, unspecified; F25.9 Schizoaffective disorder, unspecified; E87.6 Hypokalemia; Z96.643 Presence of artificial hip joint, bilateral; Z66 Do not resuscitate; I25.2 Old myocardial infarction; Z79.82 Long term (current) use of aspirin; Z95.5 Presence of coronary angioplasty implant and graft; Z87.01 Personal history of pneumonia (recurrent); Z11.52 Encounter for screening for COVID-19
CPT/HCPCS: 71046; 74230; 80048; 80053; 80202; 83605; 83735; 84145; 85025; 85027; 87040; 87070; 87147; 87186; 87205; 87502; 87811; 92526; 92610; 92611; 93005; 93306; 96361; 96374; 96375; 97110; 97163; 97530; 99285